=== PATIENT | female | born 1960 | race Caucasian/White ===

== ENCOUNTER → 2016-12-29 | Outpatient (CLI) | payer BC ==
[~2016-12-29] MED LIST: AC325T PO; AC500T PO; ASP325TEC PO; ASP81TEC PO; ASPI1TAB PO; ATOR40TA; ATOR80TA PO; ATOR80TA76 PO; ATR20T PO; CHOL200025 PO; CHOL5000 PO; CIPR500S2 PO; CPAP; CYCL10TA9 PO; D3 PO; DICL75TA2 PO; FRSM40T PO; FURO20TA4 PO; FURO40TA4 PO; GABA-486 PO; HYDR-3454 PO; HYDR-3816 PO; HYDR-757 PO; HYDR1TAB PO; IBUP-15 PO; IBUP-1780 PO; IBUP-30 PO; ISM30TCR PO; LVF500T PO; METO-272 PO; METO-370 PO; METO50TA7 PO; MTP100TCR; MTP100TCR PO; NF-MET200T PO; OMEG-12 PO; OMG1KC PO; OXYB10TA6 PO; OXYB5TAB9 PO; PANT20TA2 PO; PANT40SU PO; PANT40TA3 PO; PNT40TEC PO; PRAS10TA6 PO; RABE20TA PO; SERT100T8 PO; SLEEPING MED; SRTR100T; SRTR100T PO; TOPI50TA2 PO; TPR25T PO; TRAM-42 PO; TRIA1CAP4 PO; VITA1TAB17 PO; [UNRECOGNIZED DRUG - CODE] PO; [UNRECOGNIZED DRUG - OTHER] PO; [UNRECOGNIZED DRUG - REMARK]
== END ==
LOC: CARD 08:11
PROVIDERS: ATTEND Physician Assistant
DX: I25.10 Atherosclerotic heart disease of native coronary artery without angina pectoris (principal); I10 Essential (primary) hypertension; E78.2 Mixed hyperlipidemia; R42 Dizziness and giddiness
CPT/HCPCS: 93306

== ENCOUNTER → 2017-01-22 | Outpatient (CLI) | payer BC ==
[~2017-01-22] MED LIST changes: +CATHETER FLUSH 10 ML SYR IV PRN; -GABA-486 PO; -METO-370 PO; -NF-MET200T PO; +REGADENOSON 0.4 MG/5 ML SYR (LEXISCAN) IV ONE; -TRIA1CAP4 PO
[2017-01-22 09:08] VITALS: BP 141/78
[2017-01-22 09:18] VITALS: BP 131/71
[2017-01-22 09:20] VITALS: BP 128/70
--- NOTE | 2017-01-22 13:00 | STRESS TEST ---
DATE OF SERVICE: 01/22/2017 LEXISCAN MYOVIEW STRESS TEST REPORT: REFERRING PHYSICIAN: . Baseline heart rate is 64. Baseline blood pressure is 141/78. Baseline EKG is atrial paced rhythm with no ischemic changes. In summary, the patient was injected with 10.92 mCi of technetium-99 Myoview and the resting images were obtained. Then, the patient received 0.4 mg of Lexiscan followed by 30.6 mCi of technetium-99 Myoview. Throughout the test, there were no EKG changes. The resting and stressed images were reviewed and compared in the short axis, horizontal long axis, and vertical long axis views. Review of the images showed breast attenuation with fixed defect at the anterior apical segment with no significant ischemia. SSS is 3, SDS 1, no gated images were done on this study. CONCLUSION: 1. The patient tolerated Lexiscan well. 2. Breast attenuation with typical female pattern. No significant ischemia or infarction on SPECT images. 3. No gated images were done on this study. Job ID: [id number] DocumentID: [id number] Dictated Date: 01/22/2017 11:34:20 Head Char Filter Tank Tender Date: 01/22/2017 12:35:35 Dictated By: DRU LINDO MD
== END ==
LOC: CARD 07:29
PROVIDERS: ATTEND Physician Assistant
DX: I25.10 Atherosclerotic heart disease of native coronary artery without angina pectoris (principal); R42 Dizziness and giddiness; I10 Essential (primary) hypertension; E78.2 Mixed hyperlipidemia

== ENCOUNTER → 2017-02-26 | Outpatient (CLI) | payer BC ==
[~2017-02-26] MED LIST changes: -CATHETER FLUSH 10 ML SYR IV PRN; -REGADENOSON 0.4 MG/5 ML SYR (LEXISCAN) IV ONE
[2017-02-26 11:02] LABS: ALANINE AMINOTRANSFERASE 23 U/L (0-55); ALBUMIN 3.9 GM/DL (3.2-4.5); ANION GAP 8 MMOL/L (5-14); ASPARTATE AMINO TRANSFERASE 18 U/L (5-34); BILIRUBIN,TOTAL 0.6 MG/DL (0.1-1.0); BLOOD UREA NITROGEN 15 MG/DL (7-18); BUN/CREATININE RATIO 22; CALCIUM 9.2 MG/DL (8.5-10.1); CARBON DIOXIDE 27 MMOL/L (21-32); CHLORIDE 105 MMOL/L (98-107); CHOLESTEROL 180 MG/DL (< 200); CREATININE SERUM 0.68 MG/DL (0.60-1.30); DIRECT LDL 108 MG/DL (1-129); GFR ESTIMATED > 60; GLUCOSE 122 MG/DL (70-105); POTASSIUM 4.3 MMOL/L (3.6-5.0); SODIUM 140 MMOL/L (135-145); TOTAL PROTEIN 6.8 GM/DL (6.4-8.2); TRIGLYCERIDES 134 MG/DL (<150); VLDL CHOLESTEROL 27 MG/DL (5-40)
[2017-02-26 11:22] LABS: THYROID STIMULATING HORMONE 1.27 UIU/ML (0.35-4.94)
== END ==
LOC: LAB 10:28
PROVIDERS: ATTEND Internal Medicine Cardiovascular Disease
DX: I25.10 Atherosclerotic heart disease of native coronary artery without angina pectoris (principal); I10 Essential (primary) hypertension; I49.5 Sick sinus syndrome; R00.2 Palpitations; R06.02 Shortness of breath
CPT/HCPCS: 36415; 80053; 80061; 84443

== ENCOUNTER 2017-04-04 06:42 | Day surgery (SDC) | payer BC ==
[2017-04-04] VITALS (9 sets, daily range): BP systolic 136–159; BP diastolic 74–98
[~2017-04-04] VITALS: Ht 167.6 cm; Wt 133.8 kg
[~2017-04-04 06:42] MED LIST changes: +METO-370 PO
[2017-04-04] MEDS ORDERED: HEParin (CATH LAB) 2,000 ML IV ONE (06:44)
[2017-04-04] MEDS ORDERED: NS IV 1000 ML 1,000 ML ONE (06:44)
[2017-04-04] MEDS ORDERED: NS IV 1000 ML 1,000 ML IV SCH ×2 (06:56→10:27)
[2017-04-04 07:37] LABS: BILIRUBIN,URINE NEGATIVE (NEGATIVE); KETONES,URINE NEGATIVE (NEGATIVE); LEUKOCYTE ESTERASE ,URINE NEGATIVE (NEGATIVE); NITRITE,URINE NEGATIVE (NEGATIVE); PH,URINE 6.5 (5-9); PROTEIN,URINE NEGATIVE (NEGATIVE); UROBILINOGEN,URINE NORMAL (NORMAL)
[2017-04-04 07:37] LABS: MEAN PLATELET VOLUME 8.5 FL (7.4-10.4); RED BLOOD COUNT 4.1 10^6/uL (4.35-5.85); RED CELL DISTRIBUTION WIDTH 14.1 % (10.0-14.5); WHITE BLOOD COUNT 5.5 10^3/uL (4.3-11.0)
--- NOTE | 2017-04-04 07:40 | Diagnostic Imaging Report ---
INDICATION: Chest pain. Pre-cath evaluation COMPARISON: 07/02/2013 FINDINGS: Upright portable view of the chest is obtained. Heart size is enlarged but unchanged. There is no central venous congestion. Pacer device in the left chest is stable. There is no pneumothorax, mediastinal widening or pleural fluid demonstrated. The lungs are clear. IMPRESSION: Stable cardiomegaly. No acute cardiopulmonary abnormalities demonstrated. Dictated by: Dictated on workstation # [id number]
[2017-04-04] MEDS ORDERED: FURO20TA4 PO (07:47)
[2017-04-04] MEDS ORDERED: GABA-486 PO (07:47)
[2017-04-04] MEDS ORDERED: NF-MET200T PO (07:47)
[2017-04-04] MEDS ORDERED: DICL75TA2 PO (07:47)
[2017-04-04] MEDS ORDERED: TRIA1CAP4 PO (07:47)
[2017-04-04] MEDS ORDERED: OXYB5TAB9 PO (07:47)
[2017-04-04 07:49] LABS: PROTHROMBIN TIME PATIENT 13.2 SEC (12.2-14.7)
[2017-04-04 07:56] LABS: ALANINE AMINOTRANSFERASE 23 U/L (0-55); ANION GAP 11 MMOL/L (5-14); ASPARTATE AMINO TRANSFERASE 17 U/L (5-34); BILIRUBIN,TOTAL 0.6 MG/DL (0.1-1.0); BLOOD UREA NITROGEN 22 MG/DL (7-18); BUN/CREATININE RATIO 29; CALCIUM 9.2 MG/DL (8.5-10.1); CARBON DIOXIDE 28 MMOL/L (21-32); CHLORIDE 102 MMOL/L (98-107); CREATININE SERUM 0.77 MG/DL (0.60-1.30); GFR ESTIMATED > 60; GLUCOSE 153 MG/DL (70-105); POTASSIUM 4.1 MMOL/L (3.6-5.0); SODIUM 141 MMOL/L (135-145); TOTAL PROTEIN 6.9 GM/DL (6.4-8.2)
[2017-04-04] MEDS ORDERED: MIDAZOLAM 2 MG/2 ML (VERSED) VIAL ONE ×2 (09:14→10:00)
[2017-04-04] MEDS ORDERED: VERAPAMIL 5 MG/2 ML (CALAN) VIAL IV ONE (09:14)
[2017-04-04] MEDS ORDERED: HEParin 1000 UNIT/ML (10ML VIAL) FOR BOLUS ONE (09:14)
[2017-04-04] MEDS ORDERED: NITROGLYCERIN DRIP 25 MG/D5W 250 ML IV ONE (09:14)
[2017-04-04] MEDS ORDERED: fentaNYL INJECTION 100 MCG/2 ML AMP ONE (09:14)
--- NOTE | 2017-04-04 09:32 | Cardiac Procedure Note-CS/ASA ---
Pre-Procedure Note Pre-Op Procedure Note H&P Reviewed The H&P was reviewed, patient examined and no changes noted. Date H&P Reviewed: Apr 04, 2017 Time H&P Reviewed: 09:32 Conscious Sedation Pre-Proced Time Reviewed: 09:32 ASA Class: 3 Airway Mallampati Classification: ([place] appropriate class) I. II. III, IV Lungs Heart ASA score ASA 1: a normal healthy patient ASA 2: a patient with a mild systemic disease (mid diabetes, controlled hypertension, obesity x ASA 3: a patient with a severe systemic disease that limits activity (angina , COPD, prior Myocardial infarction) ASA 4: a patient with an incapacitating disease that is a constant threat to life (CHF, renal failure) ASA 5: a moribund patient not expected to survive 24 hrs. (ruptured aneurysm) ASA 6: a declared brain patient whose organs are being harvested. For emergent operations, add the letter E after the classification Grade 3 Sedation Plan: Analgesia, Amnesia, Plan communicated to team members, Discussed options with patient/fam, Discussed risks with patient/fam Note The patient is an appropriate candidate to undergo the planned procedure, sedation, and anesthesia. The patient immediately re-assessed prior to indication. DRU LINDO MD Apr 04, 2017 09:32
[2017-04-04] MEDS ORDERED: PROMETHAZINE INJ 25 MG/ML (PHENERGAN) AMP ONE (09:56)
[2017-04-04] MEDS ORDERED: PATIENT MAY USE OWN MEDS, ALL PO SCH (10:30)
--- NOTE | 2017-04-04 10:31 | Discharge Inst-Post CATH ---
Discharge Inst-CATH Post Cardiac Cath D/C Inst Follow Up/Plan Appointment with Dr. Agudelo's office in 2-4 weeks CARDIAC CATH DISCHARGE INSTRUCTIONS *Hold Metformin for 48 hours post heart cath. ACTIVITY * Go Home directly and rest. * Limit activity of the leg (or wrist if it was used) for 7 days including aerobics, swimming, jogging, bicycling, etc. * Restrict stair-climbing for 7 days if possible, if not, climb up with your non -cath leg, then bring together on the same step. * Avoid lifting, pushing, pulling or excessive movement of the affected extremity for 7 days. * Customary sexual activity may be resumed after 2 days-use caution not to use a position that strains or causes pain to the affected extremity. * No driving for 24 hours. * NO SMOKING. * Avoid straining for bowel movements for 7 days. * Gentle walking on level ground is allowed. * Returning to work will depend on the type of procedure and the results. Your doctor will discuss this with you. CALL YOUR DOCTOR FOR ANY OF THE FOLLOWING: *If bleeding from the puncture site occurs- Apply gentle pressure to site with clean cloth and call your doctor or EMS. * If a knot or lump forms under the skin, increases in size, or causes pain. * If bruising appears to be worsening or moving further down your leg instead of disappearing. * Temperature above 101 F. CARE OF YOUR GROIN INCISION; * Bruising or purple discoloration of the skin near the puncture site is common. * You may shower only, no bathtub bathing for 5 days. Be careful to avoid slipping as your leg may feel stiff. * If a closure device was used on your femoral artery, please see the attached guide regarding care of the device and your leg. * REMOVE the dressing from your groin the next day after your procedure in the shower. CARE OF YOUR WRIST INCISION; * Bruising or purple discoloration of the skin near the puncture site is common. * You may shower. * DO NOT submerge wrist. * Remove dressing in 24 hours. DRU AGUDELO MD Apr 04, 2017 10:31
--- NOTE | 2017-04-04 10:36 | Cardiac Cath Report ---
Cardiac Cath Report Physician (s)/Polarity Tester (s) Physician DRU LINDO MD Pre-Procedure Diagnosis Pre-Procedure Diagnosis: coronary artery disease Post-Procedure Note Procedure Start Date: Apr 04, 2017 Procedure Start Time: 09:40 Name of Procedure: left heart catheter 98099 Aortic arch angiogram 98120 Findings/Procedure Note PROCEDURE NOTE: After explaining the procedure to the patient, all pros and cons were explained, all questions were answered. The patient signed the consent and then she was placed on the cardiac catheterization laboratory. The patient was placed on the cardiac catheterization laboratory. Wrist was prepped in a sterile fashion, 6 Togolese sheath was placed in the right radial artery, I was unable to advance the wire beyond the innominate artery that was very tortuous. After multiple attempts patient had spasm in the radial artery, after sedating the patient I was able to remove the catheter I tried with Adriana right without success. Groin was prepped SL fashion local anesthesia was used. Sheath placed in the right femoral artery Adriana right and left catheter were used to access the coronary system. Pigtail was used to access the left ventricular cavity. Left ventriculogram was not done, pressure was measured Aortic arch angiogram was done At the end of the procedure the sheath was removed. Closure device was used FINDINGS: Hemodynamics LV 105/10, end-diastolic pressure of 10 Aorta 105/59 mean of 75 ANATOMY: Left Main is free of obstructive disease Left Anterior Descending is mildly tortuous with no significant obstructive disease, mild disease distally Left Circumflex has mild disease nonobstructive disease Right Coronory Artery is free of obstructive disease LV Gram was not done, pressure was measured Aorta evaluation was done with aortic arch angiogram which showed normal aortic arch, no dissection or aneurysm, tortuous innominate artery, origin of the subclavian artery appeared normal. CONCLUSION: 1. Patent stent in the LAD with mild coronary artery disease, nonobstructive disease 2. Normal left ventricular pressure 3. Normal aortic arch with tortuous innominate artery DISCUSSION AND RECOMMENDATION: Medical therapy is recommended no intervention is warranted Anesthesia Type: Conscious Sedation Estimated blood loss (mL): 15 ml Contrast Amount: 80 ml Total Radiation Dose: 596 mGy Post-Procedure Diagnosis Post-operative diagnosis: Coronary artery disease Hypertension Hyperlipidemia Chest pain nonspecific etiology DRU LINDO MD Apr 04, 2017 10:36
== END 2017-04-04 15:02 | disposition home or self-care (01) ==
LOC: CATH 06:42
PROVIDERS: ATTEND Internal Medicine Cardiovascular Disease
DX: I25.10 Atherosclerotic heart disease of native coronary artery without angina pectoris (principal); I10 Essential (primary) hypertension; E78.5 Hyperlipidemia, unspecified; R07.9 Chest pain, unspecified; I49.5 Sick sinus syndrome; Z95.0 Presence of cardiac pacemaker; Z88.0 Allergy status to penicillin; Z79.899 Other long term (current) drug therapy; Z79.82 Long term (current) use of aspirin; J44.9 Chronic obstructive pulmonary disease, unspecified; G47.33 Obstructive sleep apnea (adult) (pediatric); I65.23 Occlusion and stenosis of bilateral carotid arteries; E66.9 Obesity, unspecified; Z68.42 Body mass index [BMI] 45.0-49.9, adult
CPT/HCPCS: 36215; 36221; 36415; 71010; 80053; 81000; 85027; 85610; 85730; 87081; 93458

== ENCOUNTER 2017-08-02 11:13 | Emergency (ER) | payer BC ==
[~2017-08-02] VITALS: Ht 167.6 cm; Wt 136.1 kg
[~2017-08-02 11:13] MED LIST changes: +GABA-486 PO; +NF-MET200T PO; +TRIA1CAP4 PO
[2017-08-02] MEDS ORDERED: ONDANSETRON 4 MG/2 ML (SDV) Z0FRAN ONE (11:32)
--- NOTE | 2017-08-02 11:33 | ED GU-Female ---
General Chief Complaint: Abdominal/GI Problems Stated Complaint: POSS KIDNEY STONE Source: patient Exam Limitations: no limitations History of Present Illness Date Seen by Provider: Aug 02, 2017 Time Seen by Provider: 11:33 Initial Comments To ER with reports of possible kidney stone. Patient developed sudden onset right flank pain about 30 minutes ago. She has a history kidney stones and this feels similar. She is nauseated. Timing/Duration: just prior to arrival Severity/Quality: severe Location: right flank Radiation: none Activities at Onset: none Prior Genitourinary Problems: none Associated Symptoms: nausea/vomiting Allergies and Home Medications Allergies Coded Allergies: NKANo Known Allergies (Unverified Allergy, Mild, 09/04/08) Penicillins (Unverified Allergy, Mild, 09/30/08) Home Medications Aspirin 81 Mg Tabec, 81 MG PO DAILY, (Reported) Atorvastatin Calcium 80 Mg Tablet, 80 MG PO HS, (Reported) Diclofenac Sodium 75 Mg Tablet.dr, 75 MG PO BID, (Reported) Furosemide 20 Mg Tablet, 20 MG PO DAILY PRN for EDEMA, (Reported) Gabapentin 100 Mg Capsule, 100 MG PO HS, (Reported) Hydrocodone/Acetaminophen 1 Each Tablet, 1 EACH PO Q4H PRN for PAIN-MODERATE TO SEVERE Prescribed by: TRISTAN ALCALA on 08/02/17 1226 Metoprolol Succinate 200 Mg Tab, 200 MG PO DAILY, (Reported) Ondansetron 8 Mg Tab.rapdis, 8 MG PO Q6H Prescribed by: TRISTAN ALCALA on 08/02/17 1226 Oxybutynin Chloride 5 Mg Tablet, 10 MG PO DAILY, (Reported) Pantoprazole Sodium 40 Mg Tablet.dr, 40 MG PO HS, (Reported) Sertraline HCl 100 Mg Tablet, 100 MG PO DAILY, (Reported) Sulfamethoxazole/Trimethoprim 1 Each Tablet, 1 EACH PO BID Prescribed by: TRISTAN ALCALA on 08/02/17 1226 Tamsulosin HCl 0.4 Mg Cap, 0.4 MG PO DAILY Prescribed by: TRISTAN ALCALA on 08/02/17 1226 Triamterene/Hydrochlorothiazid 1 Each Capsule, 1 EACH PO DAILY, (Reported) Patient Home Medication List Home Medication List Reviewed: Yes Constitutional: see HPI EENTM: see HPI Respiratory: no symptoms reported Cardiovascular: no symptoms reported Genitourinary: see HPI, flank pain Musculoskeletal: no symptoms reported Skin: no symptoms reported Psychiatric/Neurological: No Symptoms Reported Past Rjgqmqz-Ifbqyy-Ubggew Hx Patient Social History Recent Foreign Travel: No Contact w/Someone Who Travel: No Immunizations Up To Date Tetanus Booster (TDap): Less than 5yrs Date of Pneumonia Vaccine: Jun 07, 2010 Date of Influenza Vaccine: Feb 21, 2017 Surgeries Surgeries: Cardiac, Coronary Stent, Pacemaker Respiratory Respiratory Disorders: Chronic Bronchitis, Sleep Apnea Currently Using CPAP: Yes (AT HS) Cardiovascular Cardiac Disorders: Coronary Artery Disease, High Cholesterol, Hypertension Neurological Neurological Disorders: TIA Reproductive System 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) Sexually Transmitted Disease: No HIV/AIDS: No Female Reproductive Disorders: Denies 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 CHEF History: Menopausal Genitourinary Genitourinary Disorders: Kidney Stones Gastrointestinal Gastrointestinal Disorders: Hiatal Hernia Musculoskeletal Musculoskeletal Disorders: Arthritis, Fractures Endocrine Endocrine Disorders: Diabetes, Non-Insulin dep Psychosocial Behavioral Health Disorders: Depression Family Medical History Significant Family History: Heart Disease, Cancer, Diabetes, Hypertension Physical Exam Vital Signs Vital Signs - First Documented 08/02/17 11:18 Temp 98.0 Pulse 64 Resp 18 B/P (MAP) 159/64 (95) Capillary Refill : General Appearance: WD/WN, mild distress (related to pain), obese HEENT: PERRL/EOMI, normal ENT inspection Neck: non-tender, full range of motion Cardiovascular: regular rate, rhythm, no murmur Respiratory: normal breath sounds, no respiratory distress, no accessory muscle use Gastrointestinal: normal bowel sounds, non tender, soft Extremities: normal range of motion, non-tender, normal inspection Neurologic/Psychiatric: alert, normal mood/affect, oriented x 3 Skin: normal color, warm/dry Progress/Results/Core Measures Suspected Sepsis SIRS Temperature: Pulse: Respiratory Rate: Laboratory Tests 08/02/17 11:30: White Blood Count 5.7 Blood Pressure / Mean: Laboratory Tests 08/02/17 11:30: Creatinine 0.76, Platelet Count 277, Total Bilirubin 0.6 Results/Orders Lab Results Laboratory Tests Test 08/02/17 11:30 08/02/17 12:50 Range/Units White Blood Count 5.7 4.3-11.0 10^3/uL Red Blood Count 4.29 L 4.35-5.85 10^6/uL Hemoglobin 12.8 11.5-16.0 G/DL Hematocrit 38 35-52 % Mean Corpuscular Volume 88 80-99 FL Mean Corpuscular Hemoglobin 30 25-34 PG Mean Corpuscular Hemoglobin Concent 34 32-36 G/DL Red Cell Distribution Width 13.8 10.0-14.5 % Platelet Count 277 130-400 10^3/uL Mean Platelet Volume 8.6 7.4-10.4 FL Neutrophils (%) (Auto) 53 42-75 % Lymphocytes (%) (Auto) 35 12-44 % Monocytes (%) (Auto) 7 0-12 % Eosinophils (%) (Auto) 5 0-10 % Basophils (%) (Auto) 1 0-10 % Neutrophils # (Auto) 3.0 1.8-7.8 X 10^3 Lymphocytes # (Auto) 2.0 1.0-4.0 X 10^3 Monocytes # (Auto) 0.4 0.0-1.0 X 10^3 Eosinophils # (Auto) 0.3 0.0-0.3 10^3/uL Basophils # (Auto) 0.0 0.0-0.1 10^3/uL Sodium Level 138 135-145 MMOL/L Potassium Level 3.4 L 3.6-5.0 MMOL/L Chloride Level 100 98-107 MMOL/L Carbon Dioxide Level 27 21-32 MMOL/L Anion Gap 11 5-14 MMOL/L Blood Urea Nitrogen 18 7-18 MG/DL Creatinine 0.76 0.60-1.30 MG/DL Estimat Glomerular Filtration Rate > 60 BUN/Creatinine Ratio 24 Glucose Level 219 H 70-105 MG/DL Calcium Level 9.3 8.5-10.1 MG/DL Total Bilirubin 0.6 0.1-1.0 MG/DL Aspartate Amino Transf (AST/SGOT) 18 5-34 U/L Alanine Aminotransferase (ALT/SGPT) 25 0-55 U/L Alkaline Phosphatase 59 40-136 U/L Total Protein 6.9 6.4-8.2 GM/DL Albumin 4.2 3.2-4.5 GM/DL Urine Color YELLOW Urine Clarity CLEAR Urine pH 5 5-9 Urine Specific [place] 1.010 L 1.016-1.022 Urine Protein NEGATIVE NEGATIVE Urine Glucose (UA) NEGATIVE NEGATIVE Urine Ketones NEGATIVE NEGATIVE Urine Nitrite NEGATIVE NEGATIVE Urine Bilirubin NEGATIVE NEGATIVE Urine Urobilinogen NORMAL NORMAL MG/DL Urine Leukocyte Esterase NEGATIVE NEGATIVE Urine RBC (Auto) NEGATIVE NEGATIVE Urine RBC NONE /HPF Urine WBC NONE /HPF Urine Squamous Epithelial Cells RARE /HPF Urine Crystals NONE /LPF Urine Bacteria NEGATIVE /HPF Urine Casts NONE /LPF Urine Mucus NEGATIVE /LPF Urine Culture Indicated NO My Orders Orders - TRISTAN ALCALA APRN Ketorolac Injection (Toradol Injection) (08/02/17 11:45) Ns Iv 1000 Ml (Sodium Chloride 0.9%) (08/02/17 11:45) Cbc With Automated Diff (08/02/17 11:31) Comprehensive Metabolic Panel (08/02/17 11:31) Ua Culture If Indicated (08/02/17 11:31) Abdomen/Kub 1view (08/02/17 11:31) Ct Abd/Pelvis Wo(Kidney Stone) (08/02/17 11:31) Ondansetron Injection (Zofran Injectio (08/02/17 11:45) Ondansetron Injection (Zofran Injectio (08/02/17 11:32) Fentanyl Injection (Sublimaze Injection (08/02/17 12:15) Promethazine Injection (Phenergan Injec (08/02/17 12:15) Hydromorphone Injection (Dilaudid Inject (08/02/17 12:45) Medications Given in ED Current Medications Medications Dose Ordered Sig/Rodríguez Route Start Time Stop Time Status Last Admin Dose Admin Fentanyl Citrate 50 mcg ONCE ONCE IVP 08/02/17 12:15 08/02/17 12:16 DC 08/02/17 12:18 50 MCG Hydromorphone HCl 0.5 mg ONCE ONCE IVP 08/02/17 12:45 08/02/17 12:46 DC 08/02/17 13:00 0.5 MG Ketorolac Tromethamine 30 mg ONCE ONCE IVP 08/02/17 11:45 08/02/17 11:46 DC 08/02/17 11:38 30 MG Ondansetron HCl 4 mg STK-MED ONCE .ROUTE 08/02/17 11:32 08/02/17 11:36 DC 08/02/17 11:38 8 MG Promethazine HCl 12.5 mg ONCE ONCE IVP 08/02/17 12:15 08/02/17 12:16 DC 08/02/17 12:17 12.5 MG Vital Signs/I&O Vital Sign - Last 12Hours 08/02/17 11:18 Temp 98.0 Pulse 64 Resp 18 B/P (MAP) 159/64 (95) Capillary Refill : Diagnostic Imaging Diagonstic Imaging: CT Comments NAME: ERNESTINA RAINES [facility] REC#: [id number] PT STATUS: REG ER : 1960 PHYSICIAN: TRISTAN ALCALA LAMPS TESTER AND INSPECTOR ADMIT DATE: 08/02/17/ER Draft Date of Exam:08/02/17 CT ABD/PELVIS WO(KIDNEY STONE) PROCEDURE: CT urinary tract, rule out kidney stone. TECHNIQUE: Multiple contiguous axial images were obtained through the abdomen and pelvis without the use of intravenous contrast. INDICATION: Right-sided pain. COMPARISON: 01/17/2016. FINDINGS: There is mild atelectasis in the lung bases. There is mild hepatic steatosis. There is an ill-defined 2.6 cm low density in the right hepatic lobe adjacent to the gallbladder fossa which is new from the prior study. This may represent a focal area of more prominent steatosis, although an underlying mass is not excluded. Ultrasound or contrast-enhanced CT of the abdomen is suggested. The gallbladder appears unremarkable. There is no biliary dilatation. The pancreas, spleen, and adrenal glands appear unremarkable. The left kidney and ureter appear unremarkable. There is a new 3 mm stone in the distal right ureter just proximal to the ureterovesical junction. There is mild right hydroureter and moderate right hydronephrosis. Several additional calcifications are seen in the right kidney measuring up to 8 mm in size. The appendix appears normal. There is diverticulosis without evidence of diverticulitis. Lobular changes of the uterus are likely fibroids. There is no free fluid, free air, or adenopathy. There is a small periumbilical abdominal wall hernia containing fat. This measures approximately 3 cm. There is no free fluid, free air, or adenopathy. The abdominal aorta appears normal in caliber. There is mild atherosclerosis. There are degenerative changes in the spine. IMPRESSION: 1. There is a 3 mm stone in the distal right ureter just proximal to the ureterovesical junction with ougc-mu-whztoaok obstructive changes. Additional right nephrolithiasis is noted. 2. Diffuse hepatic steatosis. There is a new focal area of decreased density in the right lobe about the gallbladder fossa which may represent an area of more focal fatty change, although an underlying new mass is not excluded. Hepatic ultrasound or contrast-enhanced abdomen CT is suggested for further evaluation. 3. Diverticulosis without evidence of diverticulitis. 4. Small fat-containing periumbilical ventral abdominal wall hernia. Dictated on workstation # [id number] Dict: 08/02/17 1204 Trans: 08/02/17 1216 [id number] Interpreted by: ARABELLA AMARO DO Electronically signed by: NAME: ERNESTINA RAINES [facility] REC#: [id number] PT STATUS: REG ER : 1960 PHYSICIAN: TRISTAN ALCALA APRN ADMIT DATE: 08/02/17/ER Draft Date of Exam:08/02/17 ABDOMEN/KUB 1VIEW INDICATION: Right-sided abdominal pain. The patient has history of kidney stones. TIME OF EXAM: 12:22 PM FINDINGS: Calcific densities overlie the right renal shadow consistent with renal calculi. No definite left-sided renal calculi are seen. No definite calculi within the course of the ureters is identified. Bowel gas pattern is unremarkable. IMPRESSION: Findings suggestive of right renal calculi. Dictated on workstation # [id number] Dict: 08/02/17 1241 Trans: 08/02/17 1246 [id number] Interpreted by: JENIFER CRESPO MD Electronically signed by: Departure Communication (Admissions) Progress Notes 1229- pain is still 8 out of 10 after 30 of Toradol and 50 of fentanyl. Nausea is gone. Discussed with Dr. Tyler. He will see the patient in follow-up on Sunday as long as we can achieve pain control. 1312- reports pain still intense but as soon as we leave the room oxygen saturation dropped to 84% on room air after toradol Dilaudid Phenergan fentanyl. No writhing, no hypertension. We will wait until patient can maintain oxygen saturation without supplemental oxygen and discharge home Communication (PCP) I made an appointment with Dr. Ho's office on Sunday 1:30 PM. Impression Impression: Primary Impression: Right ureteral calculus Disposition: HOME, SELF-CARE Condition: Improved Departure-Patient Inst. Decision time for Depature: 12:30 Referrals: LUIZ LEGER MD (PCP) Primary Care Physician KEN DALY (Family) Primary Care Physician NOHEMY TYLER MD Patient Instructions: Kidney Stones in Adults Add. Discharge Instructions: 1. Follow-up with Dr. Tyler on Sunday for/2 at 1:30 PM. At 12:30 PM you should come here to the hospital for a repeat x-ray just before your visit. Dr. Tyler' s office will fax over the order for the repeat x-ray 2. Follow-up with your regular doctor to further evaluate the area on the liver near the gallbladder which may represent an area of fatty liver disease. This should be further evaluated in the next few weeks with a CT scan of the abdomen with contrast or a liver ultrasound. All discharge instructions reviewed with patient and/or family. Voiced understanding. Scripts Sulfamethoxazole/Trimethoprim (Bactrim Ds Tablet) 1 Each Tablet 1 EACH PO BID, #10 TAB Prov: TRISTAN ALCALA APRN 08/02/17 Ondansetron (Zofran Odt) 8 Mg Tab.rapdis 8 MG PO Q6H, #10 TAB Prov: TRISTAN ALCALA APRN 08/02/17 Hydrocodone/Acetaminophen ([place] 5-325 Tablet) 1 Each Tablet 1 EACH PO Q4H Y for PAIN-MODERATE TO SEVERE, #30 TAB Prov: TRISTAN ALCALA APRN 08/02/17 Tamsulosin HCl (Flomax) 0.4 Mg Cap 0.4 MG PO DAILY, #14 CAP Prov: TRISTAN ALCALA APRN 08/02/17 Work/School Note: Work Release Form Date Seen in the Emergency Department: Aug 02, 2017 Return to Work: Aug 04, 2017 Copy Copies To 1: GINA COLIN DO; NOHEMY TYLER MD, PETER J APRN Aug 02, 2017 11:33
[2017-08-02 11:38] LABS: BASOPHILS % (AUTO) 1 % (0-10); EOSINOPHILS # (AUTO) 0.3 10^3/uL (0.0-0.3); EOSINOPHILS % (AUTO) 5 % (0-10); HEMATOCRIT 38 % (35-52); HEMOGLOBIN 12.8 G/DL (11.5-16.0); LYMPHOCYTES % (AUTO) 35 % (12-44); MEAN CORPUSCULAR HEMOGLOBIN 30 PG (25-34); MEAN CORPUSCULAR HGB CONC 34 G/DL (32-36); MEAN CORPUSCULAR VOLUME 88 FL (80-99); MEAN PLATELET VOLUME 8.6 FL (7.4-10.4); MONOCYTES # (AUTO) 0.4 X 10^3 (0.0-1.0); MONOCYTES % (AUTO) 7 % (0-12); NEUTROPHILS % (AUTO) 53 % (42-75); PLATELET COUNT 277 10^3/uL (130-400); RED BLOOD COUNT 4.29 10^6/uL (4.35-5.85); RED CELL DISTRIBUTION WIDTH 13.8 % (10.0-14.5); WHITE BLOOD COUNT 5.7 10^3/uL (4.3-11.0)
[2017-08-02] MEDS ORDERED: KETOROLAC 30 MG/ML VIAL IVP ONE (11:45)
[2017-08-02] MEDS ORDERED: NS IV 1000 ML 1,000 ML IV SCH (11:45)
[2017-08-02] MEDS ORDERED: ONDANSETRON 4 MG/2 ML (SDV) Z0FRAN IVP ONE (11:45)
[2017-08-02 11:56] LABS: ALANINE AMINOTRANSFERASE 25 U/L (0-55); ALBUMIN 4.2 GM/DL (3.2-4.5); ALKALINE PHOSPHATASE 59 U/L (40-136); BILIRUBIN,TOTAL 0.6 MG/DL (0.1-1.0); BUN/CREATININE RATIO 24; CALCIUM 9.3 MG/DL (8.5-10.1); CARBON DIOXIDE 27 MMOL/L (21-32); CHLORIDE 100 MMOL/L (98-107); CREATININE SERUM 0.76 MG/DL (0.60-1.30); GFR ESTIMATED > 60; GLUCOSE 219 MG/DL (70-105); POTASSIUM 3.4 MMOL/L (3.6-5.0); SODIUM 138 MMOL/L (135-145); TOTAL PROTEIN 6.9 GM/DL (6.4-8.2)
[2017-08-02] MEDS ORDERED: PROMETHAZINE INJ 25 MG/ML (PHENERGAN) AMP IVP ONE (12:15)
[2017-08-02] MEDS ORDERED: fentaNYL INJECTION 100 MCG/2 ML AMP IVP ONE (12:15)
--- NOTE | 2017-08-02 12:17 | Diagnostic Imaging Report ---
PROCEDURE: CT urinary tract, rule out kidney stone. TECHNIQUE: Multiple contiguous axial images were obtained through the abdomen and pelvis without the use of intravenous contrast. INDICATION: Right-sided pain. COMPARISON: 01/17/2016. FINDINGS: There is mild atelectasis in the lung bases. There is mild hepatic steatosis. There is an ill-defined 2.6 cm low density in the right hepatic lobe adjacent to the gallbladder fossa which is new from the prior study. This may represent a focal area of more prominent steatosis, although an underlying mass is not excluded. Ultrasound or contrast-enhanced CT of the abdomen is suggested. The gallbladder appears unremarkable. There is no biliary dilatation. The pancreas, spleen, and adrenal glands appear unremarkable. The left kidney and ureter appear unremarkable. There is a new 3 mm stone in the distal right ureter just proximal to the ureterovesical junction. There is mild right hydroureter and moderate right hydronephrosis. Several additional calcifications are seen in the right kidney measuring up to 8 mm in size. The appendix appears normal. There is diverticulosis without evidence of diverticulitis. Lobular changes of the uterus are likely fibroids. There is no free fluid, free air, or adenopathy. There is a small periumbilical abdominal wall hernia containing fat. This measures approximately 3 cm. There is no free fluid, free air, or adenopathy. The abdominal aorta appears normal in caliber. There is mild atherosclerosis. There are degenerative changes in the spine. IMPRESSION: 1. There is a 3 mm stone in the distal right ureter just proximal to the ureterovesical junction with zfsq-si-ykmrheoe obstructive changes. Additional right nephrolithiasis is noted. 2. Diffuse hepatic steatosis. There is a new focal area of decreased density in the right lobe about the gallbladder fossa which may represent an area of more focal fatty change, although an underlying new mass is not excluded. Hepatic ultrasound or contrast-enhanced abdomen CT is suggested for further evaluation. 3. Diverticulosis without evidence of diverticulitis. 4. Small fat-containing periumbilical ventral abdominal wall hernia. Dictated by: Dictated on workstation # [id number]
[2017-08-02] MEDS ORDERED: ONDA8TAB9 PO (12:26)
[2017-08-02] MEDS ORDERED: HYDR-757 PO (12:26)
[2017-08-02] MEDS ORDERED: SULF1TAB35 PO (12:26)
[2017-08-02] MEDS ORDERED: TAMS0.4C98 PO (12:26)
[2017-08-02] MEDS ORDERED: HYDROmorphone (DILAUDID) 2 MG/ML VIAL IVP ONE (12:45)
--- NOTE | 2017-08-02 12:46 | Diagnostic Imaging Report ---
INDICATION: Right-sided abdominal pain. The patient has history of kidney stones. TIME OF EXAM: 12:22 PM FINDINGS: Calcific densities overlie the right renal shadow consistent with renal calculi. No definite left-sided renal calculi are seen. No definite calculi within the course of the ureters is identified. Bowel gas pattern is unremarkable. IMPRESSION: Findings suggestive of right renal calculi. Dictated by: Dictated on workstation # [id number]
[2017-08-02 12:55] LABS: BILIRUBIN,URINE NEGATIVE (NEGATIVE); CLARITY,URINE CLEAR; COLOR,URINE YELLOW; GLUCOSE, URINE (UA) NEGATIVE (NEGATIVE); KETONES,URINE NEGATIVE (NEGATIVE); LEUKOCYTE ESTERASE ,URINE NEGATIVE (NEGATIVE); NITRITE,URINE NEGATIVE (NEGATIVE); PH,URINE 5 (5-9); PROTEIN,URINE NEGATIVE (NEGATIVE); UROBILINOGEN,URINE NORMAL (NORMAL)
[2017-08-02 13:21] LABS: BACTERIA,URINE NEGATIVE /HPF; SQUAMOUS EPITHELIAL CELL,UR RARE /HPF
[2017-08-02 14:18] VITALS: BP 184/84
== END 2017-08-02 14:18 | disposition home or self-care (01) ==
LOC: EDUNIT# 11:13 → ER 11:15
DX: N20.1 Calculus of ureter (principal); G47.30 Sleep apnea, unspecified; I25.10 Atherosclerotic heart disease of native coronary artery without angina pectoris; E11.9 Type 2 diabetes mellitus without complications; F32.9 Major depressive disorder, single episode, unspecified; E78.00 Pure hypercholesterolemia, unspecified; I10 Essential (primary) hypertension; Z82.49 Family history of ischemic heart disease and other diseases of the circulatory system; Z86.73 Personal history of transient ischemic attack (TIA), and cerebral infarction without residual deficits; Z87.442 Personal history of urinary calculi; Z87.19 Personal history of other diseases of the digestive system; Z88.1 Allergy status to other antibiotic agents; Z88.0 Allergy status to penicillin; Z79.82 Long term (current) use of aspirin; Z95.5 Presence of coronary angioplasty implant and graft; Z95.0 Presence of cardiac pacemaker
CPT/HCPCS: 36415; 74018; 74176; 80053; 81000; 85025; 96361; 96374; 96375

== ENCOUNTER → 2017-08-06 | Outpatient (CLI) | payer BC ==
[~2017-08-06] MED LIST changes: +ONDA8TAB9 PO; +SULF1TAB35 PO; +TAMS0.4C98 PO
--- NOTE | 2017-08-06 13:19 | Diagnostic Imaging Report ---
INDICATION: Obstructive uropathy. EXAMINATION: Two views were obtained. FINDINGS: The bowel gas pattern is nonspecific. The previously seen right renal calculi are not as well appreciated on today's exam. No definite abnormal calcifications seen along the expected course of either ureter. IMPRESSION: Nonspecific bowel gas pattern. Dictated by: Dictated on workstation # [id number]
== END ==
LOC: RAD 12:14
PROVIDERS: ATTEND Urology
DX: N20.1 Calculus of ureter (principal)
CPT/HCPCS: 74018

== ENCOUNTER 2017-08-09 05:36 | Outpatient (CLI) | payer BC ==
[~2017-08-09] VITALS: Ht 167.6 cm; Wt 136.1 kg
[2017-08-09] MEDS ORDERED: ASPI-999 PO (10:55)
== END 2017-08-09 11:14 ==
LOC: PREOP 05:36
PROVIDERS: ATTEND Urology
DX: Z01.818 Encounter for other preprocedural examination (principal); N20.0 Calculus of kidney

== ENCOUNTER 2017-08-14 06:59 | Day surgery (SDC) | payer BC ==
[~2017-08-14] VITALS: Ht 167.6 cm; Wt 136.1 kg
[~2017-08-14 06:59] MED LIST changes: +ASPI-999 PO
[2017-08-14 07:05] VITALS: BP 144/60
--- NOTE | 2017-08-14 07:10 | Progress Note-Pre Operative ---
Pre-Operative Progress Note H&P Reviewed The H&P was reviewed, patient examined and no changes noted. Date Seen by Provider: Aug 14, 2017 Time Seen by Provider: 07:33 Date H&P Reviewed: Aug 14, 2017 Time H&P Reviewed: 07:33 Pre-Operative Diagnosis: RT RENAL STONE NOHEMY TYLER MD Aug 14, 2017 7:10 am
--- OUTSIDE RECORDS SUMMARY | 2017-08-14 07:12 | XMS REPORT ---
Author Author NADIRPAYTONYANA Organization [facility] [place] Address [address] [place] [address] Care Team Providers Care Electrolysis Engineer Name Role Phone SCHMITZPAYTON BhaktaELE Unavailable PROBLEMS Type Condition ICD9-CM Code [id number] Code Onset Dates Condition Status SNOMED Code Problem Achilles bursitis or tendinitis 726.71 Active 506036501 Problem Asymptomatic postmenopausal status (age-related) (natural) V49.81 Active 46281323 Problem Asymptomatic varicose veins 454.9 Active 442799680 Problem Hypertension I10 Active 81588993 Problem Pain in joint, lower leg 719.46 Active 330735681 Problem Acute bronchitis 466.0 Active 28033036 Problem Abdominal pain, right lower quadrant 789.03 Active 802445880 Problem Unspecified ventral hernia without mention of obstruction or gangrene 553.20 Active 384891116 Problem Pneumonia, organism unspecified 486 Active 860090805 Assessment Right flank pain R10.9 Jan, Active 639943209 Problem Cough 786.2 Active 92446708 Assessment History of renal calculi Z87.442 Jan, Active 425351617 Problem Hernia of unspecified site of abdominal cavity without mention of obstruction or gangrene 553.9 Active 80745167 Problem Obesity, unspecified 278.00 Active 044679652 Problem Unspecified hypertrophic and atrophic condition of skin 701.9 Active 377596827 Problem Urinary tract infection, site not specified 599.0 Active 61118641 Problem Routine gynecological examination V72.31 Active 504083651957412 Problem Pain in joint, ankle and foot 719.47 Active 264899799 ALLERGIES Substance Reaction Event Type Date Status Penicillin G Potassium Unknown Drug Allergy Jan, Active SOCIAL HISTORY No smoking Hx information available PLAN OF CARE VITAL SIGNS Height 66 in 2016-01-17 Weight 277.6 lbs 2016-01-17 Heart Rate 72 bpm 2016-01-17 Respiratory Rate 18 2016-01-17 BMI 44.80 kg/m2 2016-01-17 Blood pressure systolic 132 mmHg 2016-01-17 Blood pressure diastolic 84 mmHg 2016-01-17 MEDICATIONS Medication Instructions Dosage Frequency Start Date End Date Duration Status Oxybutynin Chloride 5MG 1 tablet 12h 30 Active Diclofenac Sodium 75MG DR Orally Twice a day 1 tablet 12h 30 Active Lipitor 40 MG 1 tablet 24h Oct, Active Diuretic 5mg by oral route Once a day 1 tablet 24h Active Metoprolol Succinate 100 mg 1 tablet 24h Jul, Active Sertraline HCl 100MG 1 tablet 24h 30 Active Aspirin 81 MG Orally Once a day 1 tablet 24h Active Pantoprazole Sodium 20 MG Orally Once a day 1 tablet 24h Jul, 30 day(s) Active Ciprofloxacin HCl 500 MG Orally Twice a day 1 tablet 12h 12 Jan, 2016 Jan, 05 days Active RESULTS Name Result Date Reference Range UA LONG DIP (IN HOUSE) 2016-01-17 Lot # [id number] Exp date 06/2016 Clarity clear Color yellow Odor none GLU negative NIKO negative KET negative SG 1.010 BLO 3+ pH 5.5 Protein negative URO 0.2 NIT negative ALICJA 1+ Lot # Exp date CT Scan : Abd & Pelvis w/o contrast (STONE PROTOCOL) 2016-01-17 PROCEDURES Procedure Date Ordered Related Diagnosis Body Site URINALYSIS, AUTO, W/O SCOPE Jan 17, 2016 Office Visit, Est Pt., Level 3 Jan 17, 2016 IMMUNIZATIONS No Known Immunizations
--- OUTSIDE RECORDS SUMMARY | 2017-08-14 07:12 | XMS REPORT ---
Author Author 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 [facility] Address [address] [place] [address] Care Team Providers Care Ring Stamper Name Role Phone 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 Unavailable PROBLEMS Type Condition ICD9-CM Code [id number] Code Onset Dates Condition Status SNOMED Code Problem Hx of cardiac pacemaker Z95.0 Active 031267142 Problem Hypertension I10 Active 27220223 ALLERGIES Substance Reaction Event Type Date Status Penicillin G Potassium Unknown Drug Allergy Jun, Active SOCIAL HISTORY Never Assessed PLAN OF CARE Activity Details Follow Up prn Reason: VITAL SIGNS Height 66 in 2016-06-08 Weight 275 lbs 2016-06-08 Temperature 98.3 degrees Fahrenheit 2016-06-08 Heart Rate 50 bpm 2016-06-08 Respiratory Rate 20 2016-06-08 BMI 44.38 kg/m2 2016-06-08 Blood pressure systolic 148 mmHg 2016-06-08 Blood pressure diastolic 80 mmHg 2016-06-08 MEDICATIONS Medication Instructions Dosage Frequency Start Date End Date Duration Status Aspirin 81 MG Orally Once a day 1 tablet 24h Active Metoprolol Succinate 100 mg 1 tablet 24h Jul, Active Lipitor 40 MG 1 tablet 24h Oct, Active Diclofenac Sodium 75MG DR TAKE ONE TABLET BY MOUTH TWICE DAILY 30 Active PredniSONE 20 mg Orally Once a day 3 tablets x 4 days then 3 tablets x 3 days 2 tablets x 2 days 1 tablet x 1 day 24h Jun, Jun, 10 days Active Pantoprazole Sodium 20 MG Orally Once a day 1 tablet 24h Jul, 30 day(s) Active Sertraline HCl 100MG 1 tablet 24h 30 Active Symbicort 160-4.5 MCG/ACT Inhalation Twice a day prn cough 2 puffs JunAug, 30 days Active Diuretic 5mg by oral route Once a day 1 tablet 24h Active Oxybutynin Chloride 5MG 1 tablet 12h 30 Active RESULTS No Results PROCEDURES Procedure Date Ordered Result Body Site DEPO MEDROL 80 MG/ML Jun 08, 2016 THER/PROPH/DIAG INJ, SC/IM Jun 08, 2016 IMMUNIZATIONS Vaccine Route Administration Date Status DEPO MEDROL 80 MG/ML IM Intramuscular Jun 08, 2016 Administered MEDICAL (GENERAL) HISTORY Type Description Date Medical History HTN Medical History pacemaker Medical History bradychardia Medical History COPD Medical History sleep apnea Surgical History pacemaker Surgical History bilateral carpal tunnel Surgical History left ankle ligament repair Surgical History scope on right knee Surgical History kidney stone removal Hospitalization History surgeries
--- OUTSIDE RECORDS SUMMARY | 2017-08-14 07:12 | XMS REPORT ---
Author Author 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 Organization [employer] Address Unknown Phone Unavailable Care Team Providers Care Natural Resource Technician Name Role Phone 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 CP Unavailable Allergies No Known Allergies Problems Problem Type Condition Code Onset Dates Condition Status Problem Asymptomatic varicose veins 454.9 Active Problem Decreased libido 799.81 Active Problem Asymptomatic postmenopausal status (age-related) (natural) V49.81 Active Problem Pain in joint, lower leg 719.46 Active Problem Screening for malignant neoplasm of the cervix V76.2 Active Problem Unspecified ventral hernia without mention of obstruction or gangrene 553.20 Active Problem Unspecified hypertrophic and atrophic condition of skin 701.9 Active Problem Cough 786.2 Active Problem Hypertension I10 Active Problem Abdominal pain, right lower quadrant 789.03 Active Problem Need for prophylactic vaccination and inoculation, Influenza V04.81 Active Problem Pneumonia, organism unspecified 486 Active Problem Acute bronchitis 466.0 Active Problem Routine gynecological examination V72.31 Active Problem Hernia of unspecified site of abdominal cavity without mention of obstruction or gangrene 553.9 Active Problem Special screening examination, human papillomavirus [HPV] V73.81 Active Problem Unspecified breast screening V76.10 Active Problem Pain in joint, ankle and foot 719.47 Active Problem Achilles bursitis or tendinitis 726.71 Active Problem Obesity, unspecified 278.00 Active Problem Acute sinusitis, unspecified 461.9 Active Assessment Encounter for immunization Z23 Active Problem Urinary tract infection, site not specified 599.0 Active Problem Acute upper respiratory infections of unspecified site 465.9 Active Medications No Known Medications Procedures Procedure Coding System Code Date SINGLE IMMUNIZATION ADMIN CPT-4 00553 Feb 11, 2016 FLUARIX QUAD P-FREE 3 AND UP .50 2015 CPT-4 35904 Feb 11, 2016 Results No Known Results Immunizations Vaccine Administration Date FLUARIX QUAD P-FREE 3 AND UP .50 2015Feb 11, 2016 Summary Purpose [employer] Submission
--- OUTSIDE RECORDS SUMMARY | 2017-08-14 07:12 | XMS REPORT ---
Author Author 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 [facility] Address [address] [place] [address] Care Team Providers Care Retail Performance Specialist Name Role Phone JANETTRUANTONIO Unavailable PROBLEMS Type Condition ICD9-CM Code [id number] Code Onset Dates Condition Status SNOMED Code Problem Asymptomatic varicose veins 454.9 Active 316677254 Problem Abdominal pain, right lower quadrant 789.03 Active 340451179 Problem Asymptomatic postmenopausal status (age-related) (natural) V49.81 Active 59707162 Problem Hx of cardiac pacemaker Z95.0 Active 314902882 Problem Hypertension I10 Active 37693936 Problem Pneumonia, organism unspecified 486 Active 934026800 Problem Acute bronchitis 466.0 Active 35417838 Problem Pain in joint, lower leg 719.46 Active 866588601 Problem Unspecified ventral hernia without mention of obstruction or gangrene 553.20 Active 275796308 Problem Cough 786.2 Active 92128198 Problem Unspecified hypertrophic and atrophic condition of skin 701.9 Active 073771366 Assessment Elevated blood pressure reading R03.0 Apr, Active 36713714 Assessment Dizziness R42 Apr, Active 149202159 Problem Obesity, unspecified 278.00 Active 836500863 Problem Urinary tract infection, site not specified 599.0 Active 32117685 Problem Routine gynecological examination V72.31 Active 482970761664914 Problem Pain in joint, ankle and foot 719.47 Active 565662745 Problem Hernia of unspecified site of abdominal cavity without mention of obstruction or gangrene 553.9 Active 35782991 Problem Achilles bursitis or tendinitis 726.71 Active 712954179 ALLERGIES Substance Reaction Event Type Date Status Penicillin G Potassium Unknown Drug Allergy Apr, Active SOCIAL HISTORY No smoking Hx information available PLAN OF CARE Activity Details Pending Test CMP prn,Reason: VITAL SIGNS Height 66 in 2016-04-18 Weight 277.6 lbs 2016-04-18 Heart Rate 64 bpm 2016-04-18 Respiratory Rate 18 2016-04-18 Oximetry 98 % 2016-04-18 BMI 44.80 kg/m2 2016-04-18 Blood pressure systolic 161 mmHg 2016-04-18 Blood pressure diastolic 72 mmHg 2016-04-18 MEDICATIONS Medication Instructions Dosage Frequency Start Date End Date Duration Status Pantoprazole Sodium 20 MG Orally Once a day 1 tablet 24h Jul, 30 day(s) Active Aspirin 81 MG Orally Once a day 1 tablet 24h Active Diuretic 5mg by oral route Once a day 1 tablet 24h Active Diclofenac Sodium 75MG DR TAKE ONE TABLET BY MOUTH TWICE DAILY 30 Active Oxybutynin Chloride 5MG 1 tablet 12h 30 Active Lipitor 40 MG 1 tablet 24h Oct, Active Metoprolol Succinate 100 mg 1 tablet 24h Jul, Active Sertraline HCl 100MG 1 tablet 24h 30 Active RESULTS Name Result Date Reference Range CALCIUM 2016-04-18 Request Problem Calcium, Serum MAGNESIUM, SERUM 2016-04-18 NTI Urine Tube (Loza) Please note Request Problem Request Problem Request Problem Magnesium, Serum CMP 2016-04-18 Request Problem NTI Urine Tube (Loza) Gifty Silva CMP14 Default Request Problem Request Problem Sodium, Serum Potassium, Serum Chloride, Serum Carbon Dioxide, Total BUN Creatinine, Serum eGFR If NonAfricn Am eGFR If Africn Am BUN/Creatinine Ratio Glucose, Serum Calcium, Serum Bilirubin, Total AST (SGOT) ALT (SGPT) Alkaline Phosphatase, S Protein, Total, Serum Albumin, Serum Globulin, Total A/G Ratio Specimen Identification Status Please note PROCEDURES Procedure Date Ordered Related Diagnosis Body Site MEASURE BLOOD OXYGEN LEVEL Apr 18, 2016 Office Visit, Est Pt., Level 3 Apr 18, 2016 IMMUNIZATIONS No Known Immunizations
--- OUTSIDE RECORDS SUMMARY | 2017-08-14 07:12 | XMS REPORT ---
Author KEN Pearson [facility] [employer] Address Unknown Phone Unavailable Care Team Providers Care Textile Coating Machine Operator Name Role Phone KEN DALY CP Unavailable Allergies, Adverse Reactions, Alerts Substance Reaction Event Type Penicillin G Potassium Info Not Available Drug Allergy Problems Problem Type Condition Code Onset Dates Condition Status Problem Acute sinusitis, unspecified 461.9 Active Assessment Contusion of knee, right S80.01XA Active Problem Acute upper respiratory infections of unspecified site 465.9 Active Assessment Contusion of elbow, right S50.01XA Active Problem Asymptomatic varicose veins 454.9 Active Problem Decreased libido 799.81 Active Problem Asymptomatic postmenopausal status (age-related) (natural) V49.81 Active Problem Pain in joint, lower leg 719.46 Active Problem Unspecified ventral hernia without mention of obstruction or gangrene 553.20 Active Problem Screening for malignant neoplasm of the cervix V76.2 Active Problem Unspecified hypertrophic and atrophic condition of skin 701.9 Active Problem Hypertension I10 Active Problem Cough 786.2 Active Problem Abdominal pain, right lower quadrant [...] Active Problem Obesity, unspecified 278.00 Active Problem Urinary tract infection, site not specified 599.0 Active Medications Medication Code System Code Instructions Start Date End Date Status Dosage Diclofenac Sodium [facility] 75154251979 75MG DR Orally Twice a day 1 tablet Diuretic NDC 0 5mg by oral route Once a day 1 tablet Tramadol HCl [facility] [address]-93 50 MG Orally every 6 hrs 1 [place] [address]-40 40 MG Once a day October 11, 2011 1 tablet Sertraline HCl [facility] 31371943535 100MG Once a day 1 tablet Aspirin [facility] 85846-28978 81 MG Orally Once a day 1 tablet Pantoprazole Sodium [facility] [address]-24 20 MG Orally Once a day July 09, 2015 1 tablet Metoprolol Succinate [facility] 0 100 mg Once a day August 04, 2013 1 tablet Oxybutynin Chloride [facility] 20044049331 5MG 2 times a day 1 tablet Procedures Procedure Coding System Code Date Office Visit, Est Pt., Level 3 CPT-4 14198 November 26, 2015 Vital Signs Date/Time: November 26, 2015 Cardiac Monitoring Heart Rate 68 bpm Weight 272 lbs Height 66 in Blood Pressure Diastolic 72 mmHg Blood Pressure Systolic 132 mmHg Results No Known Results Summary Purpose [employer] Submission
--- OUTSIDE RECORDS SUMMARY | 2017-08-14 07:12 | XMS REPORT ---
Author Author KEN DALY Organization [facility] Address [address] [place] [address] Care Team Providers Care Clean Up Helper Banquet Name Role Phone KEN DALY Unavailable PROBLEMS Type Condition ICD9-CM Code [id number] Code Onset Dates Condition Status SNOMED Code Problem Hx of cardiac pacemaker Z95.0 Active 588482249 Problem Hypertension I10 Active 98905220 ALLERGIES Substance Reaction Event Type Date Status Penicillin G Potassium Unknown Drug Allergy Jul, Active SOCIAL HISTORY Never Assessed PLAN OF CARE Activity Details Follow Up 4 Weeks Reason:leg pain VITAL SIGNS Height 66 in 2016-07-10 Weight 287 lbs 2016-07-10 Temperature 98.1 degrees Fahrenheit 2016-07-10 Heart Rate 74 bpm 2016-07-10 Respiratory Rate 20 2016-07-10 BMI 46.32 kg/m2 2016-07-10 Blood pressure systolic 128 mmHg 2016-07-10 Blood pressure diastolic 78 mmHg 2016-07-10 MEDICATIONS Medication Instructions Dosage Frequency Start Date End Date Duration Status Pantoprazole Sodium 40 MG Orally Once a day 1 tablet 24h Jul, 30 day(s) Active Aspirin 81 MG Orally Once a day 1 tablet 24h 30 days Active Metoprolol Succinate 100 mg 1 tablet 24h Jul, Active Sertraline HCl 100MG 1 tablet 24h 30 Active Lipitor 40 MG 1 tablet 24h Oct, Active Diuretic 5mg by oral route Once a day 1 tablet 24h 30 days Active Oxybutynin Chloride 5MG 1 tablet 12h 30 Active Diclofenac Sodium [address]MG DR Orally Twice a day TAKE ONE TABLET BY MOUTH TWICE DAILY 12h 30 Active Gabapentin 100 MG Orally at bedtime 1 capsule Jul, 30 days Active RESULTS No Results PROCEDURES No Known procedures IMMUNIZATIONS No Known Immunizations MEDICAL (GENERAL) HISTORY Type Description Date Medical History HTN Medical History pacemaker Medical History bradychardia Medical History COPD Medical History sleep apnea Surgical History pacemaker Surgical History bilateral carpal tunnel Surgical History left ankle ligament repair Surgical History scope on right knee Surgical History kidney stone removal Hospitalization History surgeries
--- OUTSIDE RECORDS SUMMARY | 2017-08-14 07:13 | XMS REPORT ---
Author Author 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 [facility] [employer] Address Unknown Phone Unavailable Care Team Providers Care Instrument Lens Grinder Name Role Phone 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 CP Unavailable Allergies No Known Allergies Problems Problem Type Condition Code Onset Dates Condition Status Problem Acute upper respiratory infections of unspecified site 465.9 Active Problem Asymptomatic postmenopausal status (age-related) (natural) V49.81 Active Problem Asymptomatic varicose veins 454.9 Active Problem Unspecified ventral hernia without mention of obstruction or gangrene 553.20 Active Problem Unspecified hypertrophic and atrophic condition of skin 701.9 Active Problem Pneumonia, organism unspecified 486 Active Problem Cough 786.2 Active Assessment Encounter for immunization Z23 Active Problem Pain in joint, lower leg 719.46 Active Problem Need for prophylactic vaccination and inoculation, Influenza V04.81 Active Problem Decreased libido 799.81 Active Problem Acute bronchitis 466.0 Active Problem Abdominal pain, right lower quadrant 789.03 Active Problem Unspecified breast screening V76.10 Active Problem Routine gynecological examination V72.31 Active Problem Screening for malignant neoplasm of the cervix V76.2 Active Problem Special screening examination, human papillomavirus [HPV] V73.81 Active Problem Urinary tract infection, site not specified 599.0 Active Problem Pain in joint, ankle and foot 719.47 Active Problem Hernia of unspecified site of abdominal cavity without mention of obstruction or gangrene 553.9 Active Problem Achilles bursitis or tendinitis 726.71 Active Problem Obesity, unspecified 278.00 Active Problem Acute sinusitis, unspecified 461.9 Active Medications No Known Medications Procedures Procedure Coding System Code Date SINGLE IMMUNIZATION ADMIN CPT-4 30849 Feb 11, 2015 FLUARIX QUAD (3 & UP)-GSK-2014 CPT-4 91714 Feb 11, 2015 Results No Known Results Immunizations Vaccine Administration Date FLUARIX QUAD (3 & UP)-GSK-2014Feb 11, 2015 Summary Purpose [employer] Submission
--- OUTSIDE RECORDS SUMMARY | 2017-08-14 07:13 | XMS REPORT ---
Author Author KEN DALY [facility] [employer] Address Unknown Phone Unavailable Care Team Providers Care Exhibit Artist Name Role Phone KEN DALY CP Unavailable Allergies No Known Allergies Problems [...] infection, site not specified 599.0 Active Medications No Known Medications Procedures Procedure Coding System Code Date X-RAY EXAM OF ELBOW CPT-4 85427 Dec 06, 2015 Results No Known Results Summary Purpose [employer] Submission
--- OUTSIDE RECORDS SUMMARY | 2017-08-14 07:14 | XMS REPORT ---
Author Author KEN DALY [facility] [employer] Address Unknown Phone Unavailable Care Team Providers Care Chute Worker Name Role Phone KEN DALY CP Unavailable Allergies, Adverse Reactions, Alerts Substance Reaction Event Type Penicillin G Potassium Info Not Available Drug Allergy Problems Problem Type Condition ICD-9 Code Onset Dates Condition Status Problem Acute upper respiratory infections of unspecified site 465.9 Active Problem Asymptomatic postmenopausal status (age-related) (natural) V49.81 Active Problem Asymptomatic varicose veins 454.9 Active Problem Unspecified ventral hernia without mention of obstruction or gangrene 553.20 Active Problem Unspecified hypertrophic and atrophic condition of skin 701.9 Active Problem Pneumonia, organism unspecified 486 Active Problem Cough 786.2 Active Assessment Arthritis 716.90 Active Problem Pain in joint, lower leg [...] Problem Acute sinusitis, unspecified 461.9 Active Medications Medication Code System Code Instructions Start Date End Date Status Dosage Zoloft [facility] [address]-93 100 MG Orally Once a day December 03, 2014 1 tablet Aspirin [facility] 13254-64972 81 MG Orally Once a day 1 tablet Oxybutynin Chloride [facility] 72090394840 5MG TAKE ONE TABLET BY MOUTH TWICE DAILY...PLEASE MAKE AN APPT WITH KATIE DALY Lipitor [facility] [address]-79 40 mg October 11, 2011 take 1 tablet (40 mg ) by oral route once daily at bedtime pantoprazole NDC 0 20 mg August 04, 2013 take 1 tablet (20 mg) by oral route once daily Metoprolol Succinate NDC 0 100 mg August 04, 2013 take 1 tablet ( 100 mg) by oral route once daily Diclofenac Sodium [facility] [address]-94 75 MG Orally Twice a day Jan 01, 2015 Apr 01, 2015 1 tablet Procedures Procedure Coding System Code Date Office Visit, Est Pt., Level 3 CPT-4 75589 Jan 01, 2015 Vital Signs Date/Time: Jan 01, 2015 Temperature 97.9 F Weight 274. lbs Height 66 in BMI 44.22 Index Blood Pressure Diastolic 82 mmHg Blood Pressure Systolic 140 mmHg Cardiac Monitoring Heart Rate 72 bpm Results No Known Results Summary Purpose [employer]ClinicalWorks Submission
[2017-08-14] MEDS ORDERED: LEVOFLOXACIN 250 MG/50 ML IVPB 50 ML IV ONE (07:15)
--- OUTSIDE RECORDS SUMMARY | 2017-08-14 07:17 | XMS REPORT | Continuity of Care Document ---
Author Author [facility] Address Unknown Phone Unavailable Allergies Active Description Code Type Severity Reaction Onset Reported/Identified Relationship to Patient Clinical Status Yes Penicillins Drug Allergy 06/12/2008 Yes Penicillins Drug Allergy N/A N/A 06/12/2008 Yes NKANo Known Allergies NKA Miscellaneous Allergy Mild N/A 09/04/2008 Yes Penicillins [id number] Drug Allergy Mild N/A 09/30/2008 Medications There is no data. Problems Date Dx Coded Attending Type Code Diagnosis Diagnosed By 11/11/2007 250.02 DIABETES II UNCONTROLLED 11/11/2007 272.4 HYPERLIPIDEMIA UNSPECIFIED 11/11/2007 401.1 HYPERTENSION, BENIGN ESSENTIAL 11/11/2007 458.0 ORTHOSTATIC HYPOTENSION 11/11/2007 250.02 DIABETES II UNCONTROLLED 11/11/2007 272.4 HYPERLIPIDEMIA UNSPECIFIED 11/11/2007 401.1 HYPERTENSION, BENIGN ESSENTIAL 11/11/2007 458.0 ORTHOSTATIC HYPOTENSION 11/11/2007 NATO PARADA APRN 250.02 DIABETES II UNCONTROLLED 11/11/2007 NATO PARADA APRN R 272.4 HYPERLIPIDEMIA UNSPECIFIED 11/11/2007 NATO PARADA APRN R 401.1 HYPERTENSION, BENIGN ESSENTIAL 11/11/2007 NATO PARADA APRN R 458.0 ORTHOSTATIC HYPOTENSION 11/11/2007 KEN DALY APRN 250.02 DIABETES II UNCONTROLLED 11/11/2007 KEN DALY APRN 272.4 HYPERLIPIDEMIA UNSPECIFIED 11/11/2007 KEN DALY APRN 401.1 HYPERTENSION, BENIGN ESSENTIAL 11/11/2007 KEN DALY APRN 458.0 ORTHOSTATIC HYPOTENSION 11/11/2007 250.02 DIABETES II UNCONTROLLED 11/11/2007 272.4 HYPERLIPIDEMIA UNSPECIFIED 11/11/2007 401.1 HYPERTENSION, BENIGN ESSENTIAL 11/11/2007 458.0 ORTHOSTATIC HYPOTENSION 11/11/2007 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 APRN 250.02 DIABETES II UNCONTROLLED 11/11/2007 RAJOTTE COMMUTER TRAIN OPERATOR, ANTONIO A 272.4 HYPERLIPIDEMIA UNSPECIFIED 11/11/2007 RAJOTTE COMMUTER TRAIN OPERATOR, ANTONIO A 401.1 HYPERTENSION, BENIGN ESSENTIAL 11/11/2007 RAJOTTE COMMUTER TRAIN OPERATOR, ANTONIO A 458.0 ORTHOSTATIC HYPOTENSION 11/11/2007 RAJOTTE COMMUTER TRAIN OPERATOR, ANTONIO A 250.02 DIABETES II UNCONTROLLED 11/11/2007 RAJOTTE COMMUTER TRAIN OPERATOR, ANTONIO A 272.4 HYPERLIPIDEMIA UNSPECIFIED 11/11/2007 RAJOTTE COMMUTER TRAIN OPERATOR, ANTONIO A 401.1 HYPERTENSION, BENIGN ESSENTIAL 11/11/2007 RAJOTTE COMMUTER TRAIN OPERATOR, ANTONIO A 458.0 ORTHOSTATIC HYPOTENSION 11/11/2007 RAJOTTE COMMUTER TRAIN OPERATOR, ANTONIO A 250.02 DIABETES II UNCONTROLLED 11/11/2007 RAJOTTE COMMUTER TRAIN OPERATOR, ANTONIO A 272.4 HYPERLIPIDEMIA UNSPECIFIED 11/11/2007 RAJOTTE COMMUTER TRAIN OPERATOR, ANTONIO A 401.1 HYPERTENSION, BENIGN ESSENTIAL 11/11/2007 RAJOTTE COMMUTER TRAIN OPERATOR, ANTONIO A 458.0 ORTHOSTATIC HYPOTENSION 11/11/2007 RAJOTTE COMMUTER TRAIN OPERATOR, ANTONIO A 250.02 DIABETES II UNCONTROLLED 11/11/2007 RAJOTTE COMMUTER TRAIN OPERATOR, ANTONIO A 272.4 HYPERLIPIDEMIA UNSPECIFIED 11/11/2007 RAJOTTE COMMUTER TRAIN OPERATOR, ANTONIO A 401.1 HYPERTENSION, BENIGN ESSENTIAL 11/11/2007 RAJOTTE COMMUTER TRAIN OPERATOR, ANTONIO A 458.0 ORTHOSTATIC HYPOTENSION 11/11/2007 RAJOTTE COMMUTER TRAIN OPERATOR, ANTONIO A 250.02 DIABETES II UNCONTROLLED 11/11/2007 RAJOTTE COMMUTER TRAIN OPERATOR, ANTONIO A 272.4 HYPERLIPIDEMIA UNSPECIFIED 11/11/2007 RAJOTTE COMMUTER TRAIN OPERATOR, ANTONIO A 401.1 HYPERTENSION, BENIGN ESSENTIAL 11/11/2007 RAJOTTE COMMUTER TRAIN OPERATOR, ANTONIO A 458.0 ORTHOSTATIC HYPOTENSION 11/11/2007 RAJOTTE COMMUTER TRAIN OPERATOR, ANTONIO A 250.02 DIABETES II UNCONTROLLED 11/11/2007 RAJOTTE COMMUTER TRAIN OPERATOR, ANTONIO A 272.4 HYPERLIPIDEMIA UNSPECIFIED 11/11/2007 RAJOTTE COMMUTER TRAIN OPERATOR, ANTONIO A 401.1 HYPERTENSION, BENIGN ESSENTIAL 11/11/2007 RAJOTTE COMMUTER TRAIN OPERATOR, ANTONIO A 458.0 ORTHOSTATIC HYPOTENSION 11/11/2007 KEN DALY APRN 250.02 DIABETES II UNCONTROLLED 11/11/2007 KEN DALY APRN 272.4 HYPERLIPIDEMIA UNSPECIFIED 11/11/2007 KEN DALY APRN 401.1 HYPERTENSION, BENIGN ESSENTIAL 11/11/2007 KEN DALY APRN 458.0 ORTHOSTATIC HYPOTENSION 11/11/2007 LUIZ LEGER MD 250.02 DIABETES II UNCONTROLLED 11/11/2007 LUIZ LEGER MD 272.4 HYPERLIPIDEMIA UNSPECIFIED 11/11/2007 LUIZ LEGER MD 401.1 HYPERTENSION, BENIGN ESSENTIAL 11/11/2007 LUIZ LEGER MD 458.0 ORTHOSTATIC HYPOTENSION 11/11/2007 RAJOTTE COMMUTER TRAIN OPERATOR, ANTONIO A 250.02 DIABETES II UNCONTROLLED 11/11/2007 RAJOTTE COMMUTER TRAIN OPERATOR, ANTONIO A 272.4 HYPERLIPIDEMIA UNSPECIFIED 11/11/2007 RAJOTTE COMMUTER TRAIN OPERATOR, ANTONIO A 401.1 HYPERTENSION, BENIGN ESSENTIAL 11/11/2007 RAJOTTE COMMUTER TRAIN OPERATOR, ANTONIO A 458.0 ORTHOSTATIC HYPOTENSION 11/11/2007 KEN DALY APRN 250.02 DIABETES II UNCONTROLLED 11/11/2007 KEN DALY APRN 272.4 HYPERLIPIDEMIA UNSPECIFIED 11/11/2007 KEN DALY APRN 401.1 HYPERTENSION, BENIGN ESSENTIAL 11/11/2007 KEN DALY APRN 458.0 ORTHOSTATIC HYPOTENSION 11/11/2007 RAJOTTE COMMUTER TRAIN OPERATOR, ANTONIO A 250.02 DIABETES II UNCONTROLLED 11/11/2007 RAJOTTE COMMUTER TRAIN OPERATOR, ANTONIO A 272.4 HYPERLIPIDEMIA UNSPECIFIED 11/11/2007 RAJOTTE COMMUTER TRAIN OPERATOR, ANTONIO A 401.1 HYPERTENSION, BENIGN ESSENTIAL 11/11/2007 RAJOTTE COMMUTER TRAIN OPERATOR, ANTONIO A 458.0 ORTHOSTATIC HYPOTENSION 11/11/2007 COLIN DO, GINA K 250.02 DIABETES II UNCONTROLLED 11/11/2007 COLIN DO, GINA K 272.4 HYPERLIPIDEMIA UNSPECIFIED 11/11/2007 COLIN DO, GINA K 401.1 HYPERTENSION, BENIGN ESSENTIAL 11/11/2007 COLIN DO, GINA K 458.0 ORTHOSTATIC HYPOTENSION 11/11/2007 RAJOTTE COMMUTER TRAIN OPERATOR, ANTONIO A 250.02 DIABETES II UNCONTROLLED 11/11/2007 RAJOTTE COMMUTER TRAIN OPERATOR, ANTONIO A 272.4 HYPERLIPIDEMIA UNSPECIFIED 11/11/2007 RAJOTTE COMMUTER TRAIN OPERATOR, ANTONIO A 401.1 HYPERTENSION, BENIGN ESSENTIAL 11/11/2007 RAJOTTE COMMUTER TRAIN OPERATOR, ANTONIO A 458.0 ORTHOSTATIC HYPOTENSION 11/11/2007 250.02 DIABETES II UNCONTROLLED 11/11/2007 272.4 HYPERLIPIDEMIA UNSPECIFIED 11/11/2007 401.1 HYPERTENSION, BENIGN ESSENTIAL 11/11/2007 458.0 ORTHOSTATIC HYPOTENSION 11/11/2007 KELLEY COMMUTER TRAIN OPERATOR, AIDAN A 250.02 DIABETES II UNCONTROLLED 11/11/2007 KELLEY COMMUTER TRAIN OPERATOR, AIDAN A 272.4 HYPERLIPIDEMIA UNSPECIFIED 11/11/2007 KELLEY COMMUTER TRAIN OPERATOR, AIDAN A 401.1 HYPERTENSION, BENIGN ESSENTIAL 11/11/2007 KELLEY COMMUTER TRAIN OPERATOR, AIDAN A 458.0 ORTHOSTATIC HYPOTENSION 11/11/2007 RAJOTTE COMMUTER TRAIN OPERATOR, ANTONIO A 250.02 DIABETES II UNCONTROLLED 11/11/2007 RAJOTTE COMMUTER TRAIN OPERATOR, ANTONIO A 272.4 HYPERLIPIDEMIA UNSPECIFIED 11/11/2007 RAJOTTE COMMUTER TRAIN OPERATOR, ANTONIO A 401.1 HYPERTENSION, BENIGN ESSENTIAL 11/11/2007 RAJOTTE COMMUTER TRAIN OPERATOR, ANTONIO A 458.0 ORTHOSTATIC HYPOTENSION 11/11/2007 LASHAWN CASHYAEL COMMUTER TRAIN OPERATOR, CHANDU N 250.02 DIABETES II UNCONTROLLED 11/11/2007 LASHAWN WEINERERO COMMUTER TRAIN OPERATOR, CHANDU N 272.4 HYPERLIPIDEMIA UNSPECIFIED 11/11/2007 HARDIN CASHERO COMMUTER TRAIN OPERATOR, CHANDU N 401.1 HYPERTENSION, BENIGN ESSENTIAL 11/11/2007 HARDIN CASHERO COMMUTER TRAIN OPERATOR, CHANDU N 458.0 ORTHOSTATIC HYPOTENSION 02/10/2008 250.00 DIABETES II CONTROLLED 02/10/2008 401.9 UNSPECIFIED ESSENTIAL HYPERTENSION 02/10/2008 V03.82 PCV7 PCV23, STREPTOCOCCUS PNEUMONIAE [PNEUMOCOCCUS] 02/10/2008 V04.81 NEED FOR PROPHYLACTIC VACCINATION AND INOCULATION AGAINST INFLUENZA 02/10/2008 250.00 DIABETES II CONTROLLED 02/10/2008 401.9 UNSPECIFIED ESSENTIAL HYPERTENSION 02/10/2008 V03.82 PCV7 PCV23, STREPTOCOCCUS PNEUMONIAE [PNEUMOCOCCUS] 02/10/2008 V04.81 NEED FOR PROPHYLACTIC VACCINATION AND INOCULATION AGAINST INFLUENZA 02/10/2008 NATO PARADA APRN R 250.00 DIABETES II CONTROLLED 02/10/2008 NATO PARADA APRN R 401.9 UNSPECIFIED ESSENTIAL HYPERTENSION 02/10/2008 NATO PARADA APRN R V03.82 PCV7 PCV23, STREPTOCOCCUS PNEUMONIAE [PNEUMOCOCCUS] 02/10/2008 NATO PARADA APRN R V04.81 NEED FOR PROPHYLACTIC VACCINATION AND INOCULATION AGAINST INFLUENZA 02/10/2008 KEN DALY APRN 250.00 DIABETES II CONTROLLED 02/10/2008 MALIKA ADAMS KEN Dana 401.9 UNSPECIFIED ESSENTIAL HYPERTENSION 02/10/2008 MALIKA BRANDTKEN Farooq Dana V03.82 PCV7 PCV23, STREPTOCOCCUS PNEUMONIAE [PNEUMOCOCCUS] 02/10/2008 MALIKA BRANDTKEN Farooq Dana V04.81 NEED FOR PROPHYLACTIC VACCINATION AND INOCULATION AGAINST INFLUENZA 02/10/2008 250.00 DIABETES II CONTROLLED 02/10/2008 401.9 UNSPECIFIED ESSENTIAL HYPERTENSION 02/10/2008 V03.82 PCV7 PCV23, STREPTOCOCCUS PNEUMONIAE [PNEUMOCOCCUS] 02/10/2008 V04.81 NEED FOR PROPHYLACTIC VACCINATION AND INOCULATION AGAINST INFLUENZA 02/10/2008 KOREYE COMMUTER TRAIN OPERATOR, ANTONIO A 250.00 DIABETES II CONTROLLED 02/10/2008 RAJKORIE COMMUTER TRAIN OPERATOR, ANTONIO A 401.9 UNSPECIFIED ESSENTIAL HYPERTENSION 02/10/2008 ANTHONY ADAMS, ANTONIO A V03.82 PCV7 PCV23, STREPTOCOCCUS PNEUMONIAE [PNEUMOCOCCUS] 02/10/2008 KOREYE COMMUTER TRAIN OPERATOR, ANTONIO A V04.81 NEED FOR PROPHYLACTIC VACCINATION AND INOCULATION AGAINST INFLUENZA 02/10/2008 KOREYE COMMUTER TRAIN OPERATOR, ANTONIO A 250.00 DIABETES II CONTROLLED 02/10/2008 RAJKORIE COMMUTER TRAIN OPERATOR, ANTONIO A 401.9 UNSPECIFIED ESSENTIAL HYPERTENSION 02/10/2008 KOREYE COMMUTER TRAIN OPERATOR, ANTONIO A V03.82 PCV7 PCV23, STREPTOCOCCUS PNEUMONIAE [PNEUMOCOCCUS] 02/10/2008 ANTHONY BRANDTN, ANTONIO A V04.81 NEED FOR PROPHYLACTIC VACCINATION AND INOCULATION AGAINST INFLUENZA 02/10/2008 KOREYE COMMUTER TRAIN OPERATOR, ANTONIO A 250.00 DIABETES II CONTROLLED 02/10/2008 KOREYE COMMUTER TRAIN OPERATOR, ANTONIO A 401.9 UNSPECIFIED ESSENTIAL HYPERTENSION 02/10/2008 KOREYE COMMUTER TRAIN OPERATOR, ANTONIO A V03.82 PCV7 PCV23, STREPTOCOCCUS PNEUMONIAE [PNEUMOCOCCUS] 02/10/2008 JANETTOTTE COMMUTER TRAIN OPERATOR, ANTONIO A V04.81 NEED FOR PROPHYLACTIC VACCINATION AND INOCULATION AGAINST INFLUENZA 02/10/2008 KOREYE COMMUTER TRAIN OPERATOR, ANTONIO A 250.00 DIABETES II CONTROLLED 02/10/2008 RAJOTTE COMMUTER TRAIN OPERATOR, ANTONIO A 401.9 UNSPECIFIED ESSENTIAL HYPERTENSION 02/10/2008 KOREYE COMMUTER TRAIN OPERATOR, ANTONIO A V03.82 PCV7 PCV23, STREPTOCOCCUS PNEUMONIAE [PNEUMOCOCCUS] 02/10/2008 KOREYE COMMUTER TRAIN OPERATOR, ANTONIO A V04.81 NEED FOR PROPHYLACTIC VACCINATION AND INOCULATION AGAINST INFLUENZA 02/10/2008 RAJOTTE COMMUTER TRAIN OPERATOR, ANTONIO A 250.00 DIABETES II CONTROLLED 02/10/2008 RAJOTTE COMMUTER TRAIN OPERATOR, ANTONIO A 401.9 UNSPECIFIED ESSENTIAL HYPERTENSION 02/10/2008 RAJOTTE COMMUTER TRAIN OPERATOR, ANTONIO A V03.82 PCV7 PCV23, STREPTOCOCCUS PNEUMONIAE [PNEUMOCOCCUS] 02/10/2008 RAJOTTE COMMUTER TRAIN OPERATOR, ANTONIO A V04.81 NEED FOR PROPHYLACTIC VACCINATION AND INOCULATION AGAINST INFLUENZA 02/10/2008 RAJOTTE COMMUTER TRAIN OPERATOR, ANTONIO A 250.00 DIABETES II CONTROLLED 02/10/2008 RAJOTTE COMMUTER TRAIN OPERATOR, ANTONIO A 401.9 UNSPECIFIED ESSENTIAL HYPERTENSION 02/10/2008 RAJOTTE COMMUTER TRAIN OPERATOR, ANTONIO A V03.82 PCV7 PCV23, STREPTOCOCCUS PNEUMONIAE [PNEUMOCOCCUS] 02/10/2008 JANETTOTTE COMMUTER TRAIN OPERATOR, ANTONIO A V04.81 NEED FOR PROPHYLACTIC VACCINATION AND INOCULATION AGAINST INFLUENZA 02/10/2008 KEN DALY APRN 250.00 DIABETES II CONTROLLED 02/10/2008 KEN DALY APRN 401.9 UNSPECIFIED ESSENTIAL HYPERTENSION 02/10/2008 KEN DALY APRN V03.82 PCV7 PCV23, STREPTOCOCCUS PNEUMONIAE [PNEUMOCOCCUS] 02/10/2008 KEN DALY APRN V04.81 NEED FOR PROPHYLACTIC VACCINATION AND INOCULATION AGAINST INFLUENZA 02/10/2008 LUIZ LEGER MD 250.00 DIABETES II CONTROLLED 02/10/2008 LUIZ LEGER MD 401.9 UNSPECIFIED ESSENTIAL HYPERTENSION 02/10/2008 LUIZ LEGER MD V03.82 PCV7 PCV23, STREPTOCOCCUS PNEUMONIAE [PNEUMOCOCCUS] 02/10/2008 LUIZ LEGER MD V04.81 NEED FOR PROPHYLACTIC VACCINATION AND INOCULATION AGAINST INFLUENZA 02/10/2008 JANETTOTTE COMMUTER TRAIN OPERATOR, ANTONIO A 250.00 DIABETES II CONTROLLED 02/10/2008 RAJKORIE COMMUTER TRAIN OPERATOR, ANTONIO A 401.9 UNSPECIFIED ESSENTIAL HYPERTENSION 02/10/2008 KOREYE COMMUTER TRAIN OPERATOR, ANTONIO A V03.82 PCV7 PCV23, STREPTOCOCCUS PNEUMONIAE [PNEUMOCOCCUS] 02/10/2008 JANETTOTTE COMMUTER TRAIN OPERATOR, ANTONIO A V04.81 NEED FOR PROPHYLACTIC VACCINATION AND INOCULATION AGAINST INFLUENZA 02/10/2008 KEN DALY APRN 250.00 DIABETES II CONTROLLED 02/10/2008 KEN DALY APRN 401.9 UNSPECIFIED ESSENTIAL HYPERTENSION 02/10/2008 KEN DALY APRN V03.82 PCV7 PCV23, STREPTOCOCCUS PNEUMONIAE [PNEUMOCOCCUS] 02/10/2008 KEN DALY APRN V04.81 NEED FOR PROPHYLACTIC VACCINATION AND INOCULATION AGAINST INFLUENZA 02/10/2008 ANTHONY ADAMS, ANTONIO A 250.00 DIABETES II CONTROLLED 02/10/2008 ANTHONY ADAMS, ANTONIO A 401.9 UNSPECIFIED ESSENTIAL HYPERTENSION 02/10/2008 DARCY CRUZ APRNYL A V03.82 PCV7 PCV23, STREPTOCOCCUS PNEUMONIAE [PNEUMOCOCCUS] 02/10/2008 ANTHONY ADAMS ANTONIO A V04.81 NEED FOR PROPHYLACTIC VACCINATION AND INOCULATION AGAINST INFLUENZA 02/10/2008 COLIN DO, GINA K 250.00 DIABETES II CONTROLLED 02/10/2008 COLIN DO GINA K 401.9 UNSPECIFIED ESSENTIAL HYPERTENSION 02/10/2008 COLIN DO, GINA K V03.82 PCV7 PCV23, STREPTOCOCCUS PNEUMONIAE [PNEUMOCOCCUS] 02/10/2008 COLIN DO GINA K V04.81 NEED FOR PROPHYLACTIC VACCINATION AND INOCULATION AGAINST INFLUENZA 02/10/2008 ANTHONY ADAMS ANTONIO A 250.00 DIABETES II CONTROLLED 02/10/2008 ANTHONY ADAMS, ANTONIO A 401.9 UNSPECIFIED ESSENTIAL HYPERTENSION 02/10/2008 DARCY CRUZ APRNYL A V03.82 PCV7 PCV23, STREPTOCOCCUS PNEUMONIAE [PNEUMOCOCCUS] 02/10/2008 ANTHONY ADAMS ANTONIO A V04.81 NEED FOR PROPHYLACTIC VACCINATION AND INOCULATION AGAINST INFLUENZA 02/10/2008 250.00 DIABETES II CONTROLLED 02/10/2008 401.9 UNSPECIFIED ESSENTIAL HYPERTENSION 02/10/2008 V03.82 PCV7 PCV23, STREPTOCOCCUS PNEUMONIAE [PNEUMOCOCCUS] 02/10/2008 V04.81 NEED FOR PROPHYLACTIC VACCINATION AND INOCULATION AGAINST INFLUENZA 02/10/2008 KELLEY COMMUTER TRAIN OPERATOR, AIDAN A 250.00 DIABETES II CONTROLLED 02/10/2008 KELLEY COMMUTER TRAIN OPERATOR, AIDAN A 401.9 UNSPECIFIED ESSENTIAL HYPERTENSION 02/10/2008 KELLEY COMMUTER TRAIN OPERATOR, AIDAN A V03.82 PCV7 PCV23, STREPTOCOCCUS PNEUMONIAE [PNEUMOCOCCUS] 02/10/2008 KELLEY COMMUTER TRAIN OPERATOR, AIDAN A V04.81 NEED FOR PROPHYLACTIC VACCINATION AND INOCULATION AGAINST INFLUENZA 02/10/2008 ANTHONY BRANDTN, ANTONIO A 250.00 DIABETES II CONTROLLED 02/10/2008 ANTHONY ADAMS, ANTONIO A 401.9 UNSPECIFIED ESSENTIAL HYPERTENSION 02/10/2008 DARCY CRUZ APRNYL A V03.82 PCV7 PCV23, STREPTOCOCCUS PNEUMONIAE [PNEUMOCOCCUS] 02/10/2008 ANTHONY ADAMS, ANTONIO A V04.81 NEED FOR PROPHYLACTIC VACCINATION AND INOCULATION AGAINST INFLUENZA 02/10/2008 GISSELLE GARDNER APRNCY N 250.00 DIABETES II CONTROLLED 02/10/2008 GISSELLE GARDNER APRNCY N 401.9 UNSPECIFIED ESSENTIAL HYPERTENSION 02/10/2008 LASHAWN ALVAREZ APRN, CHANDU N V03.82 PCV7 PCV23, STREPTOCOCCUS PNEUMONIAE [PNEUMOCOCCUS] 02/10/2008 GISSELLE GARDNER APRNCY N V04.81 NEED FOR PROPHYLACTIC VACCINATION AND INOCULATION AGAINST INFLUENZA 05/18/2008 719.47 PAIN IN JOINT INVOLVING ANKLE AND FOOT 05/18/2008 790.29 PREDIABETES 05/18/2008 719.47 PAIN IN JOINT INVOLVING ANKLE AND FOOT 05/18/2008 790.29 PREDIABETES 05/18/2008 NATO PARADA APRN 719.47 PAIN IN JOINT INVOLVING ANKLE AND FOOT 05/18/2008 NATO PARADA APRN R 790.29 PREDIABETES 05/18/2008 KEN DALY APRN 719.47 PAIN IN JOINT INVOLVING ANKLE AND FOOT 05/18/2008 KEN DALY APRN 790.29 PREDIABETES 05/18/2008 719.47 PAIN IN JOINT INVOLVING ANKLE AND FOOT 05/18/2008 790.29 PREDIABETES 05/18/2008 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 APRN A 719.47 PAIN IN JOINT INVOLVING ANKLE AND FOOT 05/18/2008 DARCY CRUZ APRNYL A 790.29 PREDIABETES 05/18/2008 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 APRN A 719.47 PAIN IN JOINT INVOLVING ANKLE AND FOOT 05/18/2008 DARCY CRUZ APRNYL A 790.29 PREDIABETES 05/18/2008 ANTHONY ADAMS ANTONIO A 719.47 PAIN IN JOINT INVOLVING ANKLE AND FOOT 05/18/2008 ANTHONY ADAMS ANTONIO A 790.29 PREDIABETES 05/18/2008 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 APRN A 719.47 PAIN IN JOINT INVOLVING ANKLE AND FOOT 05/18/2008 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 APRN A 790.29 PREDIABETES 05/18/2008 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 APRN A 719.47 PAIN IN JOINT INVOLVING ANKLE AND FOOT 05/18/2008 DARCY CRUZ APRNYL A 790.29 PREDIABETES 05/18/2008 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 APRN A 719.47 PAIN IN JOINT INVOLVING ANKLE AND FOOT 05/18/2008 DARCY CRUZ APRNYL A 790.29 PREDIABETES 05/18/2008 KEN DALY APRN 719.47 PAIN IN JOINT INVOLVING ANKLE AND FOOT 05/18/2008 KEN DALY APRN 790.29 PREDIABETES 05/18/2008 LUIZ LEGER MD 719.47 PAIN IN JOINT INVOLVING ANKLE AND FOOT 05/18/2008 LUIZ LEGER MD 790.29 PREDIABETES 05/18/2008 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 APRN A 719.47 PAIN IN JOINT INVOLVING ANKLE AND FOOT 05/18/2008 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 APRN A 790.29 PREDIABETES 05/18/2008 KEN DALY APRN 719.47 PAIN IN JOINT INVOLVING ANKLE AND FOOT 05/18/2008 KEN DALY APRN 790.29 PREDIABETES 05/18/2008 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 APRN A 719.47 PAIN IN JOINT INVOLVING ANKLE AND FOOT 05/18/2008 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 APRN A 790.29 PREDIABETES 05/18/2008 COLIN DOMAKENZIEA K 719.47 PAIN IN JOINT INVOLVING ANKLE AND FOOT 05/18/2008 COLIN DO GINA K 790.29 PREDIABETES 05/18/2008 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 APRN A 719.47 PAIN IN JOINT INVOLVING ANKLE AND FOOT 05/18/2008 DARCY CRUZ APRNYL A 790.29 PREDIABETES 05/18/2008 719.47 PAIN IN JOINT INVOLVING ANKLE AND FOOT 05/18/2008 790.29 PREDIABETES 05/18/2008 AIDAN BENSON APRN 719.47 PAIN IN JOINT INVOLVING ANKLE AND FOOT 05/18/2008 AIDAN BENSON APRN 790.29 PREDIABETES 05/18/2008 RAJOTTE COMMUTER TRAIN OPERATOR, ANTONIO A 719.47 PAIN IN JOINT INVOLVING ANKLE AND FOOT 05/18/2008 RAJOTTE COMMUTER TRAIN OPERATOR, ANTONIO A 790.29 PREDIABETES 05/18/2008 HARDIN HUSAMYAEL COMMUTER TRAIN OPERATOR, CHANDU N 719.47 PAIN IN JOINT INVOLVING ANKLE AND FOOT 05/18/2008 LASHAWN ALVAREZ COMMUTER TRAIN OPERATOR, CHANDU N 790.29 PREDIABETES 06/12/2008 709.9 DERMATOLOGY - NON-INFECTIOUS 06/12/2008 709.9 DERMATOLOGY - NON-INFECTIOUS 06/12/2008 NATO PARADA APRN 709.9 DERMATOLOGY - NON-INFECTIOUS 06/12/2008 KEN DALY APRN 709.9 DERMATOLOGY - NON-INFECTIOUS 06/12/2008 709.9 DERMATOLOGY - NON-INFECTIOUS 06/12/2008 RAJOTTE COMMUTER TRAIN OPERATOR, ANTONIO A 709.9 DERMATOLOGY - NON-INFECTIOUS 06/12/2008 RAJOTTE COMMUTER TRAIN OPERATOR, ANTONIO A 709.9 DERMATOLOGY - NON-INFECTIOUS 06/12/2008 RAJOTTE COMMUTER TRAIN OPERATOR, ANTONIO A 709.9 DERMATOLOGY - NON-INFECTIOUS 06/12/2008 RAJOTTE COMMUTER TRAIN OPERATOR, ANTONIO A 709.9 DERMATOLOGY - NON-INFECTIOUS 06/12/2008 RAJOTTE COMMUTER TRAIN OPERATOR, ANTONIO A 709.9 DERMATOLOGY - NON-INFECTIOUS 06/12/2008 RAJOTTE COMMUTER TRAIN OPERATOR, ANTONIO A 709.9 DERMATOLOGY - NON-INFECTIOUS 06/12/2008 KEN DALY APRN 709.9 DERMATOLOGY - NON-INFECTIOUS 06/12/2008 LUIZ LEGER MD 709.9 DERMATOLOGY - NON-INFECTIOUS 06/12/2008 RAJOTTE COMMUTER TRAIN OPERATOR, ANTONIO A 709.9 DERMATOLOGY - NON-INFECTIOUS 06/12/2008 KEN DALY APRN 709.9 DERMATOLOGY - NON-INFECTIOUS 06/12/2008 RAJOTTE COMMUTER TRAIN OPERATOR, ANTONIO A 709.9 DERMATOLOGY - NON-INFECTIOUS 06/12/2008 GINA COLIN DO 709.9 DERMATOLOGY - NON-INFECTIOUS 06/12/2008 RAJOTTE COMMUTER TRAIN OPERATOR, ANTONIO A 709.9 DERMATOLOGY - NON-INFECTIOUS 06/12/2008 709.9 DERMATOLOGY - NON-INFECTIOUS 06/12/2008 KELLEY ADAMS, AIDAN A 709.9 DERMATOLOGY - NON-INFECTIOUS 06/12/2008 RAJOTTE COMMUTER TRAIN OPERATOR, ANTONIO A 709.9 DERMATOLOGY - NON-INFECTIOUS 06/12/2008 CHANDU GARDNER APRN N 709.9 DERMATOLOGY - NON-INFECTIOUS 06/17/2008 625.6 STRESS INCONTINENCE FEMALE 06/17/2008 625.6 STRESS INCONTINENCE FEMALE 06/17/2008 NATO PARADA APRN 625.6 STRESS INCONTINENCE FEMALE 06/17/2008 KEN DALY APRN 625.6 STRESS INCONTINENCE FEMALE 06/17/2008 625.6 STRESS INCONTINENCE FEMALE 06/17/2008 JANETTOTTE COMMUTER TRAIN OPERATOR, ANTONIO A 625.6 STRESS INCONTINENCE FEMALE 06/17/2008 RAJOTTE COMMUTER TRAIN OPERATOR, ANTONIO A 625.6 STRESS INCONTINENCE FEMALE 06/17/2008 RAJOTTE COMMUTER TRAIN OPERATOR, ANTONIO A 625.6 STRESS INCONTINENCE FEMALE 06/17/2008 RAJOTTE COMMUTER TRAIN OPERATOR, ANTONIO A 625.6 STRESS INCONTINENCE FEMALE 06/17/2008 RAJOTTE COMMUTER TRAIN OPERATOR, ANTONIO A 625.6 STRESS INCONTINENCE FEMALE 06/17/2008 KOREYE BRYAN, ANTONIO A 625.6 STRESS INCONTINENCE FEMALE 06/17/2008 KEN DALY APRN 625.6 STRESS INCONTINENCE FEMALE 06/17/2008 LUIZ LEGER MD 625.6 STRESS INCONTINENCE FEMALE 06/17/2008 RAJKORIE COMMUTER TRAIN OPERATOR, ANTONIO A 625.6 STRESS INCONTINENCE FEMALE 06/17/2008 KEN DALY APRN 625.6 STRESS INCONTINENCE FEMALE 06/17/2008 JANETTOTTE COMMUTER TRAIN OPERATOR, ANTONIO A 625.6 STRESS INCONTINENCE FEMALE 06/17/2008 GINA COLIN DO 625.6 STRESS INCONTINENCE FEMALE 06/17/2008 KOREYE COMMUTER TRAIN OPERATOR, ANTONIO A 625.6 STRESS INCONTINENCE FEMALE 06/17/2008 625.6 STRESS INCONTINENCE FEMALE 06/17/2008 KELLEY ADAMS AIDAN A 625.6 STRESS INCONTINENCE FEMALE 06/17/2008 KOREYE COMMUTER TRAIN OPERATOR, ANTONIO A 625.6 STRESS INCONTINENCE FEMALE 06/17/2008 CHANDU GARDNER APRN N 625.6 STRESS INCONTINENCE FEMALE 07/06/2008 692.9 DERMATITIS CONTACT UNSPECIFIED 07/06/2008 692.9 DERMATITIS CONTACT UNSPECIFIED 07/06/2008 [employer] PARADA APRN 692.9 DERMATITIS CONTACT UNSPECIFIED 07/06/2008 KEN DALY APRN 692.9 DERMATITIS CONTACT UNSPECIFIED 07/06/2008 692.9 DERMATITIS CONTACT UNSPECIFIED 07/06/2008 RAJOTTE COMMUTER TRAIN OPERATOR, ANTONIO A 692.9 DERMATITIS CONTACT UNSPECIFIED 07/06/2008 RAJOTTE COMMUTER TRAIN OPERATOR, ANTONIO A 692.9 DERMATITIS CONTACT UNSPECIFIED 07/06/2008 RAJOTTE COMMUTER TRAIN OPERATOR, ANTONIO A 692.9 DERMATITIS CONTACT UNSPECIFIED 07/06/2008 RAJOTTE COMMUTER TRAIN OPERATOR, ANTONIO A 692.9 DERMATITIS CONTACT UNSPECIFIED 07/06/2008 RAJOTTE COMMUTER TRAIN OPERATOR, ANTONIO A 692.9 DERMATITIS CONTACT UNSPECIFIED 07/06/2008 RAJOTTE COMMUTER TRAIN OPERATOR, ANTONIO A 692.9 DERMATITIS CONTACT UNSPECIFIED 07/06/2008 KEN DALY APRN 692.9 DERMATITIS CONTACT UNSPECIFIED 07/06/2008 LUIZ LEGER MD 692.9 DERMATITIS CONTACT UNSPECIFIED 07/06/2008 RAJOTTE COMMUTER TRAIN OPERATOR, ANTONIO A 692.9 DERMATITIS CONTACT UNSPECIFIED 07/06/2008 KEN DALY APRN 692.9 DERMATITIS CONTACT UNSPECIFIED 07/06/2008 RAJOTTE COMMUTER TRAIN OPERATOR, ANTONIO A 692.9 DERMATITIS CONTACT UNSPECIFIED 07/06/2008 GINA COLIN DO 692.9 DERMATITIS CONTACT UNSPECIFIED 07/06/2008 RAJOTTE COMMUTER TRAIN OPERATOR, ANTONIO A 692.9 DERMATITIS CONTACT UNSPECIFIED 07/06/2008 692.9 DERMATITIS CONTACT UNSPECIFIED 07/06/2008 KELLEY COMMUTER TRAIN OPERATOR, AIDAN A 692.9 DERMATITIS CONTACT UNSPECIFIED 07/06/2008 RAJOTTE COMMUTER TRAIN OPERATOR, ANTONIO A 692.9 DERMATITIS CONTACT UNSPECIFIED 07/06/2008 CHANDU AGRDNER APRN 692.9 DERMATITIS CONTACT UNSPECIFIED 06/29/2009 465.9 UPPER RESPIRATORY INFECTION 06/29/2009 530.81 GERD 06/29/2009 465.9 UPPER RESPIRATORY INFECTION 06/29/2009 530.81 GERD 06/29/2009 [employer] PARADA APRN R 465.9 UPPER RESPIRATORY INFECTION 06/29/2009 [employer] PARADA APRN 530.81 GERD 06/29/2009 KEN DALY APRN 465.9 UPPER RESPIRATORY INFECTION 06/29/2009 KEN DALY APRN 530.81 GERD 06/29/2009 465.9 UPPER RESPIRATORY INFECTION 06/29/2009 530.81 GERD 06/29/2009 RAJOTTE COMMUTER TRAIN OPERATOR, ANTONIO A 465.9 UPPER RESPIRATORY INFECTION 06/29/2009 RAJOTTE COMMUTER TRAIN OPERATOR, ANTONIO A 530.81 GERD 06/29/2009 RAJOTTE COMMUTER TRAIN OPERATOR, ANTONIO A 465.9 UPPER RESPIRATORY INFECTION 06/29/2009 RAJOTTE COMMUTER TRAIN OPERATOR, ANTONIO A 530.81 GERD 06/29/2009 RAJOTTE COMMUTER TRAIN OPERATOR, ANTONIO A 465.9 UPPER RESPIRATORY INFECTION 06/29/2009 RAJOTTE COMMUTER TRAIN OPERATOR, ANTONIO A 530.81 GERD 06/29/2009 RAJOTTE COMMUTER TRAIN OPERATOR, ANTONIO A 465.9 UPPER RESPIRATORY INFECTION 06/29/2009 RAJOTTE COMMUTER TRAIN OPERATOR, ANTONIO A 530.81 GERD 06/29/2009 RAJOTTE COMMUTER TRAIN OPERATOR, ANTONIO A 465.9 UPPER RESPIRATORY INFECTION 06/29/2009 RAJOTTE COMMUTER TRAIN OPERATOR, ANTONIO A 530.81 GERD 06/29/2009 RAJOTTE COMMUTER TRAIN OPERATOR, ANTONIO A 465.9 UPPER RESPIRATORY INFECTION 06/29/2009 RAJOTTE COMMUTER TRAIN OPERATOR, ANTONIO A 530.81 GERD 06/29/2009 KEN DALY APRN 465.9 UPPER RESPIRATORY INFECTION 06/29/2009 KEN DALY APRN T 530.81 GERD 06/29/2009 ARSEN MARI, LUIZ 465.9 UPPER RESPIRATORY INFECTION 06/29/2009 LUIZ LEGER MD 530.81 GERD 06/29/2009 RAJOTTE COMMUTER TRAIN OPERATOR, ANTONIO A 465.9 UPPER RESPIRATORY INFECTION 06/29/2009 RAJOTTE COMMUTER TRAIN OPERATOR, ANTONIO A 530.81 GERD 06/29/2009 KEN DALY APRN 465.9 UPPER RESPIRATORY INFECTION 06/29/2009 KEN DALY APRN 530.81 GERD 06/29/2009 RAJOTTE COMMUTER TRAIN OPERATOR, ANTONIO A 465.9 UPPER RESPIRATORY INFECTION 06/29/2009 RAJOTTE COMMUTER TRAIN OPERATOR, ANTONIO A 530.81 GERD 06/29/2009 COLIN DO, GINA K 465.9 UPPER RESPIRATORY INFECTION 06/29/2009 COLIN DO, GINA K 530.81 GERD 06/29/2009 RAJOTTE COMMUTER TRAIN OPERATOR, ANTONIO A 465.9 UPPER RESPIRATORY INFECTION 06/29/2009 RAJOTTE COMMUTER TRAIN OPERATOR, ANTONIO A 530.81 GERD 06/29/2009 465.9 UPPER RESPIRATORY INFECTION 06/29/2009 530.81 GERD 06/29/2009 KELLEY COMMUTER TRAIN OPERATOR, AIDAN A 465.9 UPPER RESPIRATORY INFECTION 06/29/2009 KELLEY COMMUTER TRAIN OPERATOR, AIDAN A 530.81 GERD 06/29/2009 RAJOTTE COMMUTER TRAIN OPERATOR, ANTONIO A 465.9 UPPER RESPIRATORY INFECTION 06/29/2009 RAJOTTE COMMUTER TRAIN OPERATOR, ANTONIO A 530.81 GERD 06/29/2009 HARDIN CASHERO COMMUTER TRAIN OPERATOR, CHANDU N 465.9 UPPER RESPIRATORY INFECTION 06/29/2009 HARDIN HUSAMERO COMMUTER TRAIN OPERATOR, CHANDU N 530.81 GERD 08/25/2009 786.2 COUGH 08/25/2009 786.2 COUGH 08/25/2009 NATO PARADA APRN R 786.2 COUGH 08/25/2009 KEN DALY APRN 786.2 COUGH 08/25/2009 786.2 COUGH 08/25/2009 RAJOTTE COMMUTER TRAIN OPERATOR, ANTONIO A 786.2 COUGH 08/25/2009 RAJOTTE COMMUTER TRAIN OPERATOR, ANTONIO A 786.2 COUGH 08/25/2009 RAJOTTE COMMUTER TRAIN OPERATOR, ANTONIO A 786.2 COUGH 08/25/2009 RAJOTTE COMMUTER TRAIN OPERATOR, ANTONIO A 786.2 COUGH 08/25/2009 RAJOTTE COMMUTER TRAIN OPERATOR, ANTONIO A 786.2 COUGH 08/25/2009 RAJOTTE COMMUTER TRAIN OPERATOR, ANTONIO A 786.2 COUGH 08/25/2009 KEN DALY APRN 786.2 COUGH 08/25/2009 LUIZ LEGER MD 786.2 COUGH 08/25/2009 RAJOTTE COMMUTER TRAIN OPERATOR, ANTONIO A 786.2 COUGH 08/25/2009 KEN DALY APRN 786.2 COUGH 08/25/2009 RAJOTTE COMMUTER TRAIN OPERATOR, ANTONIO A 786.2 COUGH 08/25/2009 GINA COLIN DO 786.2 COUGH 08/25/2009 RAJOTTE COMMUTER TRAIN OPERATOR, ANTONIO A 786.2 COUGH 08/25/2009 786.2 COUGH 08/25/2009 KELLEY COMMUTER TRAIN OPERATOR, AIDAN A 786.2 COUGH 08/25/2009 RAJOTTE COMMUTER TRAIN OPERATOR, ANTONIO A 786.2 COUGH 08/25/2009 HARDINSACHIN WEINERERO COMMUTER TRAIN OPERATOR, CHANDU N 786.2 COUGH 11/10/2009 782.3 EDEMA 11/10/2009 786.05 SHORTNESS OF BREATH 11/10/2009 782.3 EDEMA 11/10/2009 786.05 SHORTNESS OF BREATH 11/10/2009 NATO PARADA APRN 782.3 EDEMA 11/10/2009 PARADA COMMUTER TRAIN OPERATOR, NATO R 786.05 SHORTNESS OF BREATH 11/10/2009 KEN DALY APRN 782.3 EDEMA 11/10/2009 KEN DALY APRN 786.05 SHORTNESS OF BREATH 11/10/2009 782.3 EDEMA 11/10/2009 786.05 SHORTNESS OF BREATH 11/10/2009 RAJOTTE COMMUTER TRAIN OPERATOR, ANTONIO A 782.3 EDEMA 11/10/2009 RAJOTTE COMMUTER TRAIN OPERATOR, ANTONIO A 786.05 SHORTNESS OF BREATH 11/10/2009 RAJOTTE COMMUTER TRAIN OPERATOR, ANTONIO A 782.3 EDEMA 11/10/2009 RAJOTTE COMMUTER TRAIN OPERATOR, ANTONIO A 786.05 SHORTNESS OF BREATH 11/10/2009 RAJOTTE COMMUTER TRAIN OPERATOR, ANTONIO A 782.3 EDEMA 11/10/2009 RAJOTTE COMMUTER TRAIN OPERATOR, ANTONIO A 786.05 SHORTNESS OF BREATH 11/10/2009 RAJOTTE COMMUTER TRAIN OPERATOR, ANTONIO A 782.3 EDEMA 11/10/2009 RAJOTTE COMMUTER TRAIN OPERATOR, ANTONIO A 786.05 SHORTNESS OF BREATH 11/10/2009 RAJOTTE COMMUTER TRAIN OPERATOR, ANTONIO A 782.3 EDEMA 11/10/2009 RAJOTTE COMMUTER TRAIN OPERATOR, ANTONIO A 786.05 SHORTNESS OF BREATH 11/10/2009 RAJOTTE COMMUTER TRAIN OPERATOR, ANTONIO A 782.3 EDEMA 11/10/2009 RAJOTTE COMMUTER TRAIN OPERATOR, ANTONIO A 786.05 SHORTNESS OF BREATH 11/10/2009 KEN DALY APRN 782.3 EDEMA 11/10/2009 KEN DALY APRN 786.05 SHORTNESS OF BREATH 11/10/2009 LUIZ LEGER MD 782.3 EDEMA 11/10/2009 LUIZ LEGER MD 786.05 SHORTNESS OF BREATH 11/10/2009 RAJOTTE COMMUTER TRAIN OPERATOR, ANTONIO A 782.3 EDEMA 11/10/2009 RAJOTTE COMMUTER TRAIN OPERATOR, ANTONIO A 786.05 SHORTNESS OF BREATH 11/10/2009 KEN DALY APRN 782.3 EDEMA 11/10/2009 KEN DALY APRN 786.05 SHORTNESS OF BREATH 11/10/2009 RAJOTTE COMMUTER TRAIN OPERATOR, ANTONIO A 782.3 EDEMA 11/10/2009 RAJOTTE COMMUTER TRAIN OPERATOR, ANTONIO A 786.05 SHORTNESS OF BREATH 11/10/2009 COLIN DO, GINA K 782.3 EDEMA 11/10/2009 COLIN DO, GINA K 786.05 SHORTNESS OF BREATH 11/10/2009 RAJOTTE COMMUTER TRAIN OPERATOR, ANTONIO A 782.3 EDEMA 11/10/2009 RAJOTTE COMMUTER TRAIN OPERATOR, ANTONIO A 786.05 SHORTNESS OF BREATH 11/10/2009 782.3 EDEMA 11/10/2009 786.05 SHORTNESS OF BREATH 11/10/2009 KELLEY COMMUTER TRAIN OPERATOR, AIDAN A 782.3 EDEMA 11/10/2009 KELLEY COMMUTER TRAIN OPERATOR, AIDAN A 786.05 SHORTNESS OF BREATH 11/10/2009 RAJOTTE COMMUTER TRAIN OPERATOR, ANTONIO A 782.3 EDEMA 11/10/2009 RAJOTTE COMMUTER TRAIN OPERATOR, ANTONIO A 786.05 SHORTNESS OF BREATH 11/10/2009 HARDIN CASHERO COMMUTER TRAIN OPERATOR, CHANDU N 782.3 EDEMA 11/10/2009 HARDIN CASHERO COMMUTER TRAIN OPERATOR, CHANDU N 786.05 SHORTNESS OF BREATH 01/03/2010 599.0 URINARY TRACT INFECTION, SITE NOT SPECIFIED 01/03/2010 599.0 URINARY TRACT INFECTION, SITE NOT SPECIFIED 01/03/2010 NATO PARADA APRN 599.0 URINARY TRACT INFECTION, SITE NOT SPECIFIED 01/03/2010 KEN DALY APRN 599.0 URINARY TRACT INFECTION, SITE NOT SPECIFIED 01/03/2010 599.0 URINARY TRACT INFECTION, SITE NOT SPECIFIED 01/03/2010 RAJOTTE COMMUTER TRAIN OPERATOR, ANTONIO A 599.0 URINARY TRACT INFECTION, SITE NOT SPECIFIED 01/03/2010 RAJOTTE COMMUTER TRAIN OPERATOR, ANTONIO A 599.0 URINARY TRACT INFECTION, SITE NOT SPECIFIED 01/03/2010 RAJOTTE COMMUTER TRAIN OPERATOR, ANTONIO A 599.0 URINARY TRACT INFECTION, SITE NOT SPECIFIED 01/03/2010 RAJOTTE COMMUTER TRAIN OPERATOR, ANTONIO A 599.0 URINARY TRACT INFECTION, SITE NOT SPECIFIED 01/03/2010 RAJOTTE COMMUTER TRAIN OPERATOR, ANTONIO A 599.0 URINARY TRACT INFECTION, SITE NOT SPECIFIED 01/03/2010 RAJOTTE COMMUTER TRAIN OPERATOR, ANTONIO A 599.0 URINARY TRACT INFECTION, SITE NOT SPECIFIED 01/03/2010 KEN DALY APRN 599.0 URINARY TRACT INFECTION, SITE NOT SPECIFIED 01/03/2010 LUIZ LEGER MD 599.0 URINARY TRACT INFECTION, SITE NOT SPECIFIED 01/03/2010 ANTHONY COMMUTER TRAIN OPERATOR, ANTONIO A 599.0 URINARY TRACT INFECTION, SITE NOT SPECIFIED 01/03/2010 MALIKA ADAMS KEN Cortez 599.0 URINARY TRACT INFECTION, SITE NOT SPECIFIED 01/03/2010 JANETTOTTE COMMUTER TRAIN OPERATOR, ANTONIO A 599.0 URINARY TRACT INFECTION, SITE NOT SPECIFIED 01/03/2010 GINA COLIN DO K 599.0 URINARY TRACT INFECTION, SITE NOT SPECIFIED 01/03/2010 RAJOTTE COMMUTER TRAIN OPERATOR, ANTONIO A 599.0 URINARY TRACT INFECTION, SITE NOT SPECIFIED 01/03/2010 599.0 URINARY TRACT INFECTION, SITE NOT SPECIFIED 01/03/2010 KELLEY APRN, AIDAN A 599.0 URINARY TRACT INFECTION, SITE NOT SPECIFIED 01/03/2010 JANETTOTTE COMMUTER TRAIN OPERATOR, ANTONIO A 599.0 URINARY TRACT INFECTION, SITE NOT SPECIFIED 01/03/2010 LASHAWN ALVAREZ BRYANCHANDU Capri 599.0 URINARY TRACT INFECTION, SITE NOT SPECIFIED 01/27/2010 Ot 272.4 01/27/2010 Ot 401.9 01/27/2010 Ot 496 01/27/2010 Ot 780.2 01/27/2010 Ot 785.1 01/27/2010 Ot V53.31 01/27/2010 Ot V58.66 01/27/2010 Ot V58.69 02/04/2010 Ot 250.00 02/04/2010 Ot 327.23 02/04/2010 Ot 401.9 03/02/2011 Ot 272.4 HYPERLIPIDEMIA NEC/NOS 03/02/2011 Ot 278.01 MORBID OBESITY 03/02/2011 Ot 327.23 OBSTRUCTIVE SLEEP APNEA (ADULT) (PEDIATR 03/02/2011 Ot 401.9 HYPERTENSION NOS 03/02/2011 Ot 414.01 CORONARY ATHEROSCLEROSIS OF [place] CORON 03/02/2011 Ot 433.10 CAROTID ARTERY OCCLUSION W O CEREBRAL IN 03/02/2011 Ot 496 CHR AIRWAY OBSTRUCT NEC 03/02/2011 Ot V45.01 CARDIAC PACEMAKER IN SITU 03/02/2011 Ot V85.42 BODY MASS INDEX 45.0-49.9, ADULT 06/22/2011 Ot 250.00 DIAB CRISTIANO WO COMPL, TYPE II OR UNSPEC TY 06/22/2011 Ot 272.4 HYPERLIPIDEMIA NEC/NOS 06/22/2011 Ot 414.00 CORON ATHEROSCLER NOS TYPE VESSEL, NATIV 06/22/2011 Ot 434.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 NOS W CEREBRAL IN 06/22/2011 Ot V12.51 HX-VENOUS THROMBOSIS EMBOLISM 06/22/2011 Ot V45.01 CARDIAC PACEMAKER IN SITU 06/22/2011 Ot V45.81 AORTOCORONARY BYPASS 06/22/2011 Ot V58.61 ANTICOAGULANTS,LT,CURRENT USE 06/22/2011 Ot V58.69 OTH MED,LT, CURRENT USE 07/13/2011 Ot 272.4 HYPERLIPIDEMIA NEC/NOS 07/13/2011 Ot 401.9 HYPERTENSION NOS 07/13/2011 Ot 414.01 CORONARY ATHEROSCLEROSIS OF [place] CORON 07/13/2011 Ot 427.81 SINOATRIAL NODE DYSFUNCT 07/13/2011 Ot 496 CHR AIRWAY OBSTRUCT NEC 07/13/2011 Ot 786.50 CHEST PAIN NOS 07/13/2011 Ot V45.01 CARDIAC PACEMAKER IN SITU 07/13/2011 Ot V45.82 PERCUTANEOUS TRANSLUM CORON ANGIOPLASTY 07/13/2011 Ot V58.66 LONG-TERM ( CURRENT) USE OF ASPIRIN 07/13/2011 Ot V58.69 OTH MED,LT, CURRENT USE 08/21/2011 461.9 SINUSITIS ACUTE 08/21/2011 461.9 SINUSITIS ACUTE 08/21/2011 NATO PARADA APRN 461.9 SINUSITIS ACUTE 08/21/2011 KEN DALY APRN 461.9 SINUSITIS ACUTE 08/21/2011 461.9 SINUSITIS ACUTE 08/21/2011 ANTHONY ADAMS, ANTONIO A 461.9 SINUSITIS ACUTE 08/21/2011 ANTHONY ADAMS, ANTONIO A 461.9 SINUSITIS ACUTE 08/21/2011 ANTHONY ADAMS, ANTONIO A 461.9 SINUSITIS ACUTE 08/21/2011 ANTHONY ADAMS, ANTONIO A 461.9 SINUSITIS ACUTE 08/21/2011 ANTHONY ADAMS, ANTONIO A 461.9 SINUSITIS ACUTE 08/21/2011 ANTHONY ADAMS, ANTONIO A 461.9 SINUSITIS ACUTE 08/21/2011 KEN DALY APRN 461.9 SINUSITIS ACUTE 08/21/2011 LUIZ LEGER MD 461.9 SINUSITIS ACUTE 08/21/2011 ANTHONY ADAMS, ANTONIO A 461.9 SINUSITIS ACUTE 08/21/2011 KEN DALY APRN 461.9 SINUSITIS ACUTE 08/21/2011 RAJOTTE COMMUTER TRAIN OPERATOR, ANTONIO A 461.9 SINUSITIS ACUTE 08/21/2011 GINA COLIN DO K 461.9 SINUSITIS ACUTE 08/21/2011 RAJOTTE COMMUTER TRAIN OPERATOR, ANTONIO A 461.9 SINUSITIS ACUTE 08/21/2011 461.9 SINUSITIS ACUTE 08/21/2011 KELLEY ADAMS AIDAN A 461.9 SINUSITIS ACUTE 08/21/2011 RAJOTTE COMMUTER TRAIN OPERATOR, ANTONIO A 461.9 SINUSITIS ACUTE 08/21/2011 LASHAWN ALVAREZ COMMUTER TRAIN OPERATOR, CHANDU N 461.9 SINUSITIS ACUTE 10/25/2011 599.0 URINARY TRACT INFECTION 10/25/2011 599.0 URINARY TRACT INFECTION 10/25/2011 NATO PARADA APRN 599.0 URINARY TRACT INFECTION 10/25/2011 KEN DALY APRN 599.0 URINARY TRACT INFECTION 10/25/2011 599.0 URINARY TRACT INFECTION 10/25/2011 RAJOTTE COMMUTER TRAIN OPERATOR, ANTONIO A 599.0 URINARY TRACT INFECTION 10/25/2011 RAJOTTE COMMUTER TRAIN OPERATOR, ANTONIO A 599.0 URINARY TRACT INFECTION 10/25/2011 RAJOTTE COMMUTER TRAIN OPERATOR, ANTONIO A 599.0 URINARY TRACT INFECTION 10/25/2011 RAJOTTE COMMUTER TRAIN OPERATOR, ANTONIO A 599.0 URINARY TRACT INFECTION 10/25/2011 RAJOTTE COMMUTER TRAIN OPERATOR, ANTONIO A 599.0 URINARY TRACT INFECTION 10/25/2011 RAJOTTE COMMUTER TRAIN OPERATOR, ANTONIO A 599.0 URINARY TRACT INFECTION 10/25/2011 KEN DALY APRN 599.0 URINARY TRACT INFECTION 10/25/2011 LUIZ LEGER MD 599.0 URINARY TRACT INFECTION 10/25/2011 RAJOTTE COMMUTER TRAIN OPERATOR, ANTONIO A 599.0 URINARY TRACT INFECTION 10/25/2011 KEN DALY APRN 599.0 URINARY TRACT INFECTION 10/25/2011 RAJOTTE COMMUTER TRAIN OPERATOR, ANTONIO A 599.0 URINARY TRACT INFECTION 10/25/2011 GINA COLIN DO K 599.0 URINARY TRACT INFECTION 10/25/2011 RAJOTTE COMMUTER TRAIN OPERATOR, ANTONIO A 599.0 URINARY TRACT INFECTION 10/25/2011 599.0 URINARY TRACT INFECTION 10/25/2011 KELLEY COMMUTER TRAIN OPERATOR, AIDAN A 599.0 URINARY TRACT INFECTION 10/25/2011 ANTHONY BRANDTN, ANTONIO A 599.0 URINARY TRACT INFECTION 10/25/2011 CHANDU GARDNER APRN N 599.0 URINARY TRACT INFECTION 02/16/2012 V04.81 FLU DX (3 YRS AND ABOVE, IM) 02/16/2012 V04.81 FLU DX (3 YRS AND ABOVE, IM) 02/16/2012 NATO PARADA APRN V04.81 FLU DX (3 YRS AND ABOVE, IM) 02/16/2012 KEN DALY APRN V04.81 FLU DX (3 YRS AND ABOVE, IM) 02/16/2012 V04.81 FLU DX (3 YRS AND ABOVE, IM) 02/16/2012 ANTHONY COMMUTER TRAIN OPERATOR, ANTONIO A V04.81 FLU DX (3 YRS AND ABOVE, IM) 02/16/2012 KOREYE COMMUTER TRAIN OPERATOR, ANTONIO A V04.81 FLU DX (3 YRS AND ABOVE, IM) 02/16/2012 KOREYE COMMUTER TRAIN OPERATOR, ANTONIO A V04.81 FLU DX (3 YRS AND ABOVE, IM) 02/16/2012 KOREYE COMMUTER TRAIN OPERATOR, ANTONIO A V04.81 FLU DX (3 YRS AND ABOVE, IM) 02/16/2012 KOREYE COMMUTER TRAIN OPERATOR, ANTONIO A V04.81 FLU DX (3 YRS AND ABOVE, IM) 02/16/2012 RAJKORIE COMMUTER TRAIN OPERATOR, ANTONIO A V04.81 FLU DX (3 YRS AND ABOVE, IM) 02/16/2012 KEN DALY APRN V04.81 FLU DX (3 YRS AND ABOVE, IM) 02/16/2012 LUIZ LEGER MD V04.81 FLU DX (3 YRS AND ABOVE, IM) 02/16/2012 ANTHONY ADAMS, ANTONIO A V04.81 FLU DX (3 YRS AND ABOVE, IM) 02/16/2012 KEN DALY APRN V04.81 FLU DX (3 YRS AND ABOVE, IM) 02/16/2012 ANTHONY COMMUTER TRAIN OPERATOR, ANTONIO A V04.81 FLU DX (3 YRS AND ABOVE, IM) 02/16/2012 GINA COLIN DO V04.81 FLU DX (3 YRS AND ABOVE, IM) 02/16/2012 RAJOTTE COMMUTER TRAIN OPERATOR, ANTONIO A V04.81 FLU DX (3 YRS AND ABOVE, IM) 02/16/2012 V04.81 FLU DX (3 YRS AND ABOVE, IM) 02/16/2012 KELLEY COMMUTER TRAIN OPERATOR, AIDAN A V04.81 FLU DX (3 YRS AND ABOVE, IM) 02/16/2012 RAJOTTE COMMUTER TRAIN OPERATOR, ANTONIO A V04.81 FLU DX (3 YRS AND ABOVE, IM) 02/16/2012 LASHAWN ALVAREZ BRYAN, CHANDU N V04.81 FLU DX (3 YRS AND ABOVE, IM) 04/04/2012 461.9 SINUSITIS ACUTE 04/04/2012 461.9 SINUSITIS ACUTE 04/04/2012 NATO PARADA APRN 461.9 SINUSITIS ACUTE 04/04/2012 KEN DALY APRN 461.9 SINUSITIS ACUTE 04/04/2012 461.9 SINUSITIS ACUTE 04/04/2012 RAJOTTE COMMUTER TRAIN OPERATOR, ANTONIO A 461.9 SINUSITIS ACUTE 04/04/2012 RAJOTTE COMMUTER TRAIN OPERATOR, ANTONIO A 461.9 SINUSITIS ACUTE 04/04/2012 RAJOTTE COMMUTER TRAIN OPERATOR, ANTONIO A 461.9 SINUSITIS ACUTE 04/04/2012 RAJOTTE COMMUTER TRAIN OPERATOR, ANTONIO A 461.9 SINUSITIS ACUTE 04/04/2012 RAJOTTE COMMUTER TRAIN OPERATOR, ANTONIO A 461.9 SINUSITIS ACUTE 04/04/2012 RAJOTTE COMMUTER TRAIN OPERATOR, ANTONIO A 461.9 SINUSITIS ACUTE 04/04/2012 KEN DALY APRN 461.9 SINUSITIS ACUTE 04/04/2012 LUIZ LEGER MD 461.9 SINUSITIS ACUTE 04/04/2012 RAJOTTE COMMUTER TRAIN OPERATOR, ANTONIO A 461.9 SINUSITIS ACUTE 04/04/2012 KEN DALY APRN 461.9 SINUSITIS ACUTE 04/04/2012 RAJOTTE COMMUTER TRAIN OPERATOR, ANTONIO A 461.9 SINUSITIS ACUTE 04/04/2012 GINA COLIN DO 461.9 SINUSITIS ACUTE 04/04/2012 RAJOTTE COMMUTER TRAIN OPERATOR, ANTONIO A 461.9 SINUSITIS ACUTE 04/04/2012 461.9 SINUSITIS ACUTE 04/04/2012 KELLEY ADAMS AIDAN A 461.9 SINUSITIS ACUTE 04/04/2012 RAJOTTE COMMUTER TRAIN OPERATOR, ANTONIO A 461.9 SINUSITIS ACUTE 04/04/2012 LASHAWN ALVAREZ COMMUTER TRAIN OPERATOR, CHANDU N 461.9 SINUSITIS ACUTE 04/19/2012 454.9 VARICOSE VEINS ASYMPTOMATIC 04/19/2012 465.9 UPPER RESPIRATORY INFECTION 04/19/2012 NATO PARADA APRN R 454.9 VARICOSE VEINS ASYMPTOMATIC 04/19/2012 CORAL PARADA APRNIA R 465.9 UPPER RESPIRATORY INFECTION 04/19/2012 KEN DALY APRN T 454.9 VARICOSE VEINS ASYMPTOMATIC 04/19/2012 KEN DALY APRN T 465.9 UPPER RESPIRATORY INFECTION 04/19/2012 454.9 VARICOSE VEINS ASYMPTOMATIC 04/19/2012 465.9 UPPER RESPIRATORY INFECTION 04/19/2012 RAJOTTE COMMUTER TRAIN OPERATOR, ANTONIO A 454.9 VARICOSE VEINS ASYMPTOMATIC 04/19/2012 RAJOTTE COMMUTER TRAIN OPERATOR, ANTONIO A 465.9 UPPER RESPIRATORY INFECTION 04/19/2012 RAJOTTE COMMUTER TRAIN OPERATOR, ANTONIO A 454.9 VARICOSE VEINS ASYMPTOMATIC 04/19/2012 RAJOTTE COMMUTER TRAIN OPERATOR, ANTONIO A 465.9 UPPER RESPIRATORY INFECTION 04/19/2012 RAJOTTE COMMUTER TRAIN OPERATOR, ANTONIO A 454.9 VARICOSE VEINS ASYMPTOMATIC 04/19/2012 RAJOTTE COMMUTER TRAIN OPERATOR, ANTONIO A 465.9 UPPER RESPIRATORY INFECTION 04/19/2012 RAJOTTE COMMUTER TRAIN OPERATOR, ANTONIO A 454.9 VARICOSE VEINS ASYMPTOMATIC 04/19/2012 RAJOTTE COMMUTER TRAIN OPERATOR, ANTONIO A 465.9 UPPER RESPIRATORY INFECTION 04/19/2012 RAJOTTE COMMUTER TRAIN OPERATOR, ANTONIO A 454.9 VARICOSE VEINS ASYMPTOMATIC 04/19/2012 RAJOTTE COMMUTER TRAIN OPERATOR, ANTONIO A 465.9 UPPER RESPIRATORY INFECTION 04/19/2012 RAJOTTE COMMUTER TRAIN OPERATOR, ANTONIO A 454.9 VARICOSE VEINS ASYMPTOMATIC 04/19/2012 RAJOTTE COMMUTER TRAIN OPERATOR, ANTONIO A 465.9 UPPER RESPIRATORY INFECTION 04/19/2012 KEN DALY APRN T 454.9 VARICOSE VEINS ASYMPTOMATIC 04/19/2012 KEN DALY APRN T 465.9 UPPER RESPIRATORY INFECTION 04/19/2012 LUIZ LEGER MD 454.9 VARICOSE VEINS ASYMPTOMATIC 04/19/2012 LUIZ LEGER MD 465.9 UPPER RESPIRATORY INFECTION 04/19/2012 RAJOTTE COMMUTER TRAIN OPERATOR, ANTONIO A 454.9 VARICOSE VEINS ASYMPTOMATIC 04/19/2012 RAJOTTE COMMUTER TRAIN OPERATOR, ANTONIO A 465.9 UPPER RESPIRATORY INFECTION 04/19/2012 KEN DALY APRN T 454.9 VARICOSE VEINS ASYMPTOMATIC 04/19/2012 KEN DALY APRN T 465.9 UPPER RESPIRATORY INFECTION 04/19/2012 RAJOTTE COMMUTER TRAIN OPERATOR, ANTONIO A 454.9 VARICOSE VEINS ASYMPTOMATIC 04/19/2012 RAJOTTE COMMUTER TRAIN OPERATOR, ANTONIO A 465.9 UPPER RESPIRATORY INFECTION 04/19/2012 COLIN DO, GINA K 454.9 VARICOSE VEINS ASYMPTOMATIC 04/19/2012 COLIN DO, GINA K 465.9 UPPER RESPIRATORY INFECTION 04/19/2012 RAJOTTE COMMUTER TRAIN OPERATOR, ANTONIO A 454.9 VARICOSE VEINS ASYMPTOMATIC 04/19/2012 RAJOTTE COMMUTER TRAIN OPERATOR, ANTONIO A 465.9 UPPER RESPIRATORY INFECTION 04/19/2012 KELLEY COMMUTER TRAIN OPERATOR, AIDAN A 454.9 VARICOSE VEINS ASYMPTOMATIC 04/19/2012 KELLEY COMMUTER TRAIN OPERATOR, AIDAN A 465.9 UPPER RESPIRATORY INFECTION 04/19/2012 RAJOTTE COMMUTER TRAIN OPERATOR, ANTONIO A 454.9 VARICOSE VEINS ASYMPTOMATIC 04/19/2012 RAJOTTE COMMUTER TRAIN OPERATOR, ANTONIO A 465.9 UPPER RESPIRATORY INFECTION 04/19/2012 HARDIN CASHERO COMMUTER TRAIN OPERATOR, CHANDU N 454.9 VARICOSE VEINS ASYMPTOMATIC 04/19/2012 HARDIN CASHERO COMMUTER TRAIN OPERATOR, CHANDU N 465.9 UPPER RESPIRATORY INFECTION 05/10/2012 NATO PARADA APRN 553.20 VENTRAL HERNIA 05/10/2012 KEN DALY APRN 553.20 VENTRAL HERNIA 05/10/2012 553.20 VENTRAL HERNIA 05/10/2012 RAJOTTE COMMUTER TRAIN OPERATOR, ANTONIO A 553.20 VENTRAL HERNIA 05/10/2012 RAJOTTE COMMUTER TRAIN OPERATOR, ANTONIO A 553.20 VENTRAL HERNIA 05/10/2012 RAJOTTE COMMUTER TRAIN OPERATOR, ANTONIO A 553.20 VENTRAL HERNIA 05/10/2012 RAJOTTE COMMUTER TRAIN OPERATOR, ANTONIO A 553.20 VENTRAL HERNIA 05/10/2012 RAJOTTE COMMUTER TRAIN OPERATOR, ANTONIO A 553.20 VENTRAL HERNIA 05/10/2012 RAJOTTE COMMUTER TRAIN OPERATOR, ANTONIO A 553.20 VENTRAL HERNIA 05/10/2012 KEN DALY APRN 553.20 VENTRAL HERNIA 05/10/2012 ARSEN MARI, LUIZ 553.20 VENTRAL HERNIA 05/10/2012 RAJOTTE COMMUTER TRAIN OPERATOR, ANTONIO A 553.20 VENTRAL HERNIA 05/10/2012 MALIKA COMMUTER TRAIN OPERATORKEN Farooq T 553.20 VENTRAL HERNIA 05/10/2012 RAJOTTE COMMUTER TRAIN OPERATOR, ANTONIO A 553.20 VENTRAL HERNIA 05/10/2012 COLIN GINA MARION K 553.20 VENTRAL HERNIA 05/10/2012 RAJOTTE COMMUTER TRAIN OPERATOR, ANTONIO A 553.20 VENTRAL HERNIA 05/10/2012 KELLEY COMMUTER TRAIN OPERATOR, AIDAN A 553.20 VENTRAL HERNIA 05/10/2012 RAJOTTE COMMUTER TRAIN OPERATOR, ANTONIO A 553.20 VENTRAL HERNIA 05/10/2012 LASHAWN ALVAREZ COMMUTER TRAIN OPERATOR, CHANDU N 553.20 VENTRAL HERNIA 05/28/2012 KEN DALY APRN 278.00 OBESITY 05/28/2012 KEN DALY APRN T 553.9 HERNIA UNSPECIFIED SITE 05/28/2012 278.00 OBESITY 05/28/2012 553.9 HERNIA UNSPECIFIED SITE 05/28/2012 RAJOTTE COMMUTER TRAIN OPERATOR, ANTONIO A 278.00 OBESITY 05/28/2012 RAJOTTE COMMUTER TRAIN OPERATOR, ANTONIO A 553.9 HERNIA UNSPECIFIED SITE 05/28/2012 RAJOTTE COMMUTER TRAIN OPERATOR, ANTONIO A 278.00 OBESITY 05/28/2012 RAJOTTE COMMUTER TRAIN OPERATOR, ANTONIO A 553.9 HERNIA UNSPECIFIED SITE 05/28/2012 RAJOTTE COMMUTER TRAIN OPERATOR, ANTONIO A 278.00 OBESITY 05/28/2012 RAJOTTE COMMUTER TRAIN OPERATOR, ANTONIO A 553.9 HERNIA UNSPECIFIED SITE 05/28/2012 RAJOTTE COMMUTER TRAIN OPERATOR, ANTONIO A 278.00 OBESITY 05/28/2012 RAJOTTE COMMUTER TRAIN OPERATOR, ANTONIO A 553.9 HERNIA UNSPECIFIED SITE 05/28/2012 RAJOTTE COMMUTER TRAIN OPERATOR, ANTONIO A 278.00 OBESITY 05/28/2012 RAJOTTE COMMUTER TRAIN OPERATOR, ANTONIO A 553.9 HERNIA UNSPECIFIED SITE 05/28/2012 RAJOTTE COMMUTER TRAIN OPERATOR, ANTONIO A 278.00 OBESITY 05/28/2012 RAJOTTE COMMUTER TRAIN OPERATOR, ANTONIO A 553.9 HERNIA UNSPECIFIED SITE 05/28/2012 KEN DALY APRN 278.00 OBESITY 05/28/2012 KEN DALY APRN 553.9 HERNIA UNSPECIFIED SITE 05/28/2012 LUIZ LEGER MD 278.00 OBESITY 05/28/2012 LUIZ LEGER MD 553.9 HERNIA UNSPECIFIED SITE 05/28/2012 RAJOTTE COMMUTER TRAIN OPERATOR, ANTONIO A 278.00 OBESITY 05/28/2012 RAJOTTE COMMUTER TRAIN OPERATOR, ANTONIO A 553.9 HERNIA UNSPECIFIED SITE 05/28/2012 MALIKA ADAMS, KEN T 278.00 OBESITY 05/28/2012 KEN DALY APRN T 553.9 HERNIA UNSPECIFIED SITE 05/28/2012 RAJOTTE COMMUTER TRAIN OPERATOR, ANTONIO A 278.00 OBESITY 05/28/2012 RAJOTTE COMMUTER TRAIN OPERATOR, ANTONIO A 553.9 HERNIA UNSPECIFIED SITE 05/28/2012 COLIN DO, GINA K 278.00 OBESITY 05/28/2012 COLIN DO, GINA K 553.9 HERNIA UNSPECIFIED SITE 05/28/2012 RAJOTTE COMMUTER TRAIN OPERATOR, ANTONIO A 278.00 OBESITY 05/28/2012 RAJOTTE COMMUTER TRAIN OPERATOR, ANTONIO A 553.9 HERNIA UNSPECIFIED SITE 05/28/2012 KELLEY COMMUTER TRAIN OPERATOR, AIDAN A 278.00 OBESITY 05/28/2012 KELLEY COMMUTER TRAIN OPERATOR, AIDAN A 553.9 HERNIA UNSPECIFIED SITE 05/28/2012 RAJOTTE COMMUTER TRAIN OPERATOR, ANTONIO A 278.00 OBESITY 05/28/2012 RAJOTTE COMMUTER TRAIN OPERATOR, ANTONIO A 553.9 HERNIA UNSPECIFIED SITE 05/28/2012 HARDIN CASHERO COMMUTER TRAIN OPERATOR, CHANDU N 278.00 OBESITY 05/28/2012 HARDIN CASHERO COMMUTER TRAIN OPERATOR, CHANDU N 553.9 HERNIA UNSPECIFIED SITE 02/05/2013 RAJOTTE COMMUTER TRAIN OPERATOR, ANTONIO A 719.46 PAIN- KNEE 02/05/2013 RAJOTTE COMMUTER TRAIN OPERATOR, ANTONIO A 719.46 PAIN- KNEE 02/05/2013 RAJOTTE COMMUTER TRAIN OPERATOR, ANTONIO A 719.46 PAIN- KNEE 02/05/2013 RAJOTTE COMMUTER TRAIN OPERATOR, ANTONIO A 719.46 PAIN- KNEE 02/05/2013 RAJOTTE COMMUTER TRAIN OPERATOR, ANTONIO A 719.46 PAIN- KNEE 02/05/2013 RAJOTTE COMMUTER TRAIN OPERATOR, ANTONIO A 719.46 PAIN- KNEE 02/05/2013 KEN DALY APRN 719.46 PAIN- KNEE 02/05/2013 LUIZ LEGER MD 719.46 PAIN- KNEE 02/05/2013 RAJOTTE COMMUTER TRAIN OPERATOR, ANTONIO A 719.46 PAIN- KNEE 02/05/2013 KEN DALY APRN 719.46 PAIN- KNEE 02/05/2013 RAJOTTE COMMUTER TRAIN OPERATOR, ANTONIO A 719.46 PAIN- KNEE 02/05/2013 GINA COILN DO 719.46 PAIN- KNEE 02/05/2013 RAJOTTE COMMUTER TRAIN OPERATOR, ANTONIO A 719.46 PAIN- KNEE 02/05/2013 AIDAN BENSON APRN 719.46 PAIN- KNEE 02/05/2013 RAJOTTE COMMUTER TRAIN OPERATOR, ANTONIO A 719.46 PAIN- KNEE 02/05/2013 LASHAWN ALVAREZ BRYANCHANDU Capri 719.46 PAIN- KNEE 03/19/2013 ANGÉLICAMARIAELENA ROSENBERG Ot 719.46 JOINT PAIN-L/LEG 03/19/2013 MARIAELENA MAGUIRE Ot 959.7 LOWER LEG INJURY NOS 03/19/2013 MARIAELENA MAGUIRE Ot E000.0 CIVILIAN ACTIVITY DONE FOR INCOME OR PAY 03/19/2013 MARIAELENA MAGUIRE Ot E849.6 ACCIDENT IN PUBLIC BLDG 03/19/2013 MARIAELENA MAGUIRE Ot E927.0 OVEREXERTION FROM SUDDEN STRENUOUS MOVEM 03/19/2013 MARIAELENA MAGUIRE Ot V57.1 PHYSICAL THERAPY NEC 04/11/2013 RAJKORIE COMMUTER TRAIN OPERATOR, ANTONIO A 466.0 BRONCHITIS, ACUTE 04/11/2013 RAJOTTE COMMUTER TRAIN OPERATOR, ANTONIO A 466.0 BRONCHITIS, ACUTE 04/11/2013 RAJOTTE COMMUTER TRAIN OPERATOR, ANTONIO A 466.0 BRONCHITIS, ACUTE 04/11/2013 RAJOTTE COMMUTER TRAIN OPERATOR, ANTONIO A 466.0 BRONCHITIS, ACUTE 04/11/2013 KEN DALY APRN 466.0 BRONCHITIS, ACUTE 04/11/2013 ARSEN MARI, LUIZ 466.0 BRONCHITIS, ACUTE 04/11/2013 RAJOTTE COMMUTER TRAIN OPERATOR, ANTONIO A 466.0 BRONCHITIS, ACUTE 04/11/2013 KEN DALY APRN 466.0 BRONCHITIS, ACUTE 04/11/2013 RAJOTTE COMMUTER TRAIN OPERATOR, ANTONIO A 466.0 BRONCHITIS, ACUTE 04/11/2013 GINA COLIN DO 466.0 BRONCHITIS, ACUTE 04/11/2013 RAJOTTE COMMUTER TRAIN OPERATOR, ANTONIO A 466.0 BRONCHITIS, ACUTE 04/11/2013 AIDAN BENSON APRN A 466.0 BRONCHITIS, ACUTE 04/11/2013 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 APRN A 466.0 BRONCHITIS, ACUTE 04/11/2013 LASHAWN ALVAREZ BRYANCHANDU N 466.0 BRONCHITIS, ACUTE 07/03/2013 LUIZ LEGER MD Ot 250.00 DIAB CRISTIANO WO COMPL, TYPE II OR UNSPEC TY 07/03/2013 LUIZ LEGER MD Ot 272.4 HYPERLIPIDEMIA NEC/NOS 07/03/2013 LUIZ LEGER MD Ot 278.00 OBESITY, NOS 07/03/2013 LUIZ LEGER MD Ot 327.23 OBSTRUCTIVE SLEEP APNEA (ADULT) (PEDIATR 07/03/2013 LUIZ LEGER MD Ot 401.9 HYPERTENSION NOS 07/03/2013 LUIZ LEGER MD Ot 414.01 CORONARY ATHEROSCLEROSIS OF [place] CORON 07/03/2013 LUIZ LEGER MD Ot 427.81 SINOATRIAL NODE DYSFUNCT 07/03/2013 LUIZ LEGER MD Ot 530.81 ESOPHAGEAL REFLUX 07/03/2013 LUIZ LEGER MD Ot 553.3 DIAPHRAGMATIC HERNIA 07/03/2013 LUIZ LEGER MD Ot 786.09 RESPIRATORY ABNORM NEC 07/03/2013 LUIZ LEGER MD Ot 786.59 CHEST PAIN NEC 07/03/2013 LUIZ LEGER MD Ot V12.54 PERSONAL HX OF TIA, CEREBRAL INFARCTION 07/03/2013 LUIZ LEGER MD Ot V45.01 CARDIAC PACEMAKER IN SITU 07/03/2013 LUIZ LEGER MD Ot V45.82 PERCUTANEOUS TRANSLUM CORON ANGIOPLASTY 07/03/2013 LUIZ LEGER MD Ot V58.69 OT MED,LT,CURRENT USE 07/03/2013 LUIZ LEGER MD Ot V85.42 BODY MASS INDEX 45.0-49.9, ADULT 07/11/2013 MARIAELENA MAGUIRE Ot V57.1 PHYSICAL THERAPY NEC 07/11/2013 MARIAELENA MAGUIRE Ot V58.43 AFTERCARE POST SURGERY INJURY/TRAUMA 09/19/2013 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 APRN A 719.47 PAIN IN JOINT INVOLVING ANKLE AND FOOT 09/19/2013 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 APRN A 726.71 ACHILLES BURSITIS OR TENDINITIS 09/19/2013 KEN DALY APRN 719.47 PAIN IN JOINT INVOLVING ANKLE AND FOOT 09/19/2013 KEN DALY APRN 726.71 ACHILLES BURSITIS OR TENDINITIS 09/19/2013 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 APRN A 719.47 PAIN IN JOINT INVOLVING ANKLE AND FOOT 09/19/2013 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 APRN A 726.71 ACHILLES BURSITIS OR TENDINITIS 09/19/2013 GINA COLIN DO 719.47 PAIN IN JOINT INVOLVING ANKLE AND FOOT 09/19/2013 GINA COLIN DO K 726.71 ACHILLES BURSITIS OR TENDINITIS 09/19/2013 DARCY CRUZ APRNYL A 719.47 PAIN IN JOINT INVOLVING ANKLE AND FOOT 09/19/2013 DARCY CRUZ APRNYL A 726.71 ACHILLES BURSITIS OR TENDINITIS 09/19/2013 AIDAN BENSON APRN A 719.47 PAIN IN JOINT INVOLVING ANKLE AND FOOT 09/19/2013 AIDAN BENSON APRN A 726.71 ACHILLES BURSITIS OR TENDINITIS 09/19/2013 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 APRN A 719.47 PAIN IN JOINT INVOLVING ANKLE AND FOOT 09/19/2013 DARCY CRUZ APRNYL A 726.71 ACHILLES BURSITIS OR TENDINITIS 09/19/2013 CHANDU GARDNER APRN 719.47 PAIN IN JOINT INVOLVING ANKLE AND FOOT 09/19/2013 CHANDU GARDNER APRN N 726.71 ACHILLES BURSITIS OR TENDINITIS 11/11/2013 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 B AND B GANG WORKER Ot 719.47 JOINT PAIN-ANKLE 11/11/2013 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 B AND B GANG WORKER Ot 726.71 ACHILLES TENDINITIS 11/11/2013 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 B AND B GANG WORKER Ot V57.1 PHYSICAL THERAPY NEC 12/17/2013 DARCY CRUZ APRNYL A 719.46 PAIN- KNEE 12/17/2013 GINA COLIN DO 719.46 PAIN- KNEE 12/17/2013 DARCY CRUZ APRNYL A 719.46 PAIN- KNEE 12/17/2013 AIDAN BENSON APRN A 719.46 PAIN- KNEE 12/17/2013 DARCY CRUZ APRNYL A 719.46 PAIN- KNEE 12/17/2013 HARDINSACHIN ALVAREZ APRN, CHANDU N 719.46 PAIN- KNEE 02/13/2014 ANTHONY BRANDTCapri ANTONIO A V04.81 FLU SHOT 02/13/2014 KELLEY COMMUTER TRAIN OPERATOR, AIDAN A V04.81 FLU SHOT 02/13/2014 KOREYE COMMUTER TRAIN OPERATOR, ANTONIO A V04.81 FLU SHOT 02/13/2014 HARDIN HUSAMGISSELLE CONLEY APRNCY N V04.81 FLU SHOT 05/18/2014 KELLEY COMMUTER TRAIN OPERATOR, AIDAN A 799.81 DECREASED LIBIDO 05/18/2014 KELLEY COMMUTER TRAIN OPERATOR, AIDAN A V49.81 ASYMPTOMATIC POSTMENOPAUSAL STATUS (AGE-RELATED) (NATURAL) 05/18/2014 ANTHONY BRYAN ANTONIO A 799.81 DECREASED LIBIDO 05/18/2014 KOREYE COMMUTER TRAIN OPERATOR, ANTONIO A V49.81 ASYMPTOMATIC POSTMENOPAUSAL STATUS (AGE-RELATED) (NATURAL) 05/18/2014 HARDIN HUSAMGISSELLE CONLEY APRNCY N 799.81 DECREASED LIBIDO 05/18/2014 HARDIN HUSAMYAEL COMMUTER TRAIN OPERATORGISSELLE FarooqCY N V49.81 ASYMPTOMATIC POSTMENOPAUSAL STATUS (AGE-RELATED) (NATURAL) 05/28/2014 DARCY CRUZ APRNYL A V72.31 ENVIRONMENTAL LAW PROFESSOR EXAM, ROUTINE 05/28/2014 DARCY CRUZ APRNYL A V73.81 HPV SCREENING 05/28/2014 DARCY CRUZ APRNYL A V76.10 BREAST CANCER SCREENING 05/28/2014 DARCY CRUZ APRNYL A V76.2 CERVICAL CANCER SCREENING (PAP SMEAR) 05/28/2014 CHANDU GARDNER APRN N V72.31 ENVIRONMENTAL LAW PROFESSOR EXAM, ROUTINE 05/28/2014 GISSELLE GARDNER APRNCY N V73.81 HPV SCREENING 05/28/2014 LASHAWN HUSAMGISSELLE CONLEY APRNCY N V76.10 BREAST CANCER SCREENING 05/28/2014 LASHAWN HUSAMCHANDU CONLEY APRN N V76.2 CERVICAL CANCER SCREENING (PAP SMEAR) 06/04/2014 DARCY CRUZ APRNYL A 465.9 UPPER RESPIRATORY INFECTION 06/04/2014 DARCY CRUZ APRNYL A 786.2 COUGH 06/04/2014 LASHAWN HUSAMCHANDU CONLEY APRN N 465.9 UPPER RESPIRATORY INFECTION 06/04/2014 CHANDU GARDNER APRN N 786.2 COUGH 06/10/2014 BENJI BROWN MD Ot 715.35 LOC OSTEOARTH NOS-PELVIS 06/10/2014 BENJI BROWN MD Ot 724.4 LUMBOSACRAL NEURITIS NOS 06/10/2014 BENJI BROWN MD Ot 729.5 PAIN IN LIMB 06/11/2014 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 APRN A 486 PNEUMONIA UNSPECIFIED 06/11/2014 CHANDU GARDNER APRN N 486 PNEUMONIA UNSPECIFIED 07/01/2014 CHANDU GARDNER APRN N 701.9 SKIN TAG 07/13/2014 CHANDU GARDNER APRN N 789.03 ABDOMINAL PAIN RIGHT LOWER QUADRANT 08/14/2014 Ot 553.1 08/14/2014 Ot 562.10 08/14/2014 Ot 592.0 08/14/2014 Ot V81.5 08/26/2014 CHANDU GARDNER APRN N 729.5 PAIN IN LIMB 03/08/2015 Ot V53.31 03/08/2015 Ot V72.63 03/08/2015 Ot V72.81 03/08/2015 Ot V74.8 03/08/2015 Ot 998.59 03/08/2015 Ot 272.4 03/08/2015 Ot 427.81 03/08/2015 Ot 794.31 03/08/2015 Ot 272.4 03/08/2015 Ot 401.9 03/08/2015 Ot 414.00 03/08/2015 Ot 397.0 03/08/2015 Ot 414.00 03/08/2015 Ot 416.8 03/08/2015 Ot 424.0 03/08/2015 Ot 786.50 03/08/2015 Ot 414.00 03/08/2015 Ot 786.50 03/08/2015 Ot 434.91 03/08/2015 Ot 272.4 03/08/2015 Ot 553.20 03/08/2015 SARAHI RUIZ B AND B GANG WORKER Ot 250.00 03/08/2015 SARAHI RUIZP Ot 272.4 03/08/2015 SARAHI RUIZP Ot 401.9 03/08/2015 JEWEL OROZCO Ot 272.4 03/08/2015 VINICIO PA, JEWEL Nugent Ot 278.01 03/08/2015 VINICIO PA, JEWEL Nugent Ot 327.23 03/08/2015 VINICIO PA, JEWEL Nugent Ot 401.9 03/08/2015 VINICIO PA, JEWEL Nugent Ot 414.00 03/08/2015 VINICIO PA, JEWEL K Ot 496 03/08/2015 VINICIO PA, JEWEL Nugent Ot 786.05 03/08/2015 VINICIO PA, JEWEL Nugent Ot 272.4 03/08/2015 VINICIO PA, JEWEL Nugent Ot 278.01 03/08/2015 VINICIO PA, JEWEL Nugent Ot 327.23 03/08/2015 VINICIO PA, JEWEL Nugent Ot 401.9 03/08/2015 VINICIO PA, JEWEL Raffi Ot 414.00 03/08/2015 VINICIO PA, JEWEL Nugent Ot 496 03/08/2015 VINICIO PA, JEWEL Nugent Ot 786.05 03/08/2015 AIDAN BENSON APRN Ot V76.12 03/08/2015 Ot 553.1 03/08/2015 Ot 562.10 03/08/2015 Ot 592.0 03/08/2015 Ot V81.5 03/10/2015 VELIA ARDON MD Ot E11.9 TYPE 2 DIABETES MELLITUS WITHOUT COMPLIC 03/10/2015 VELIA ARDON MD Ot E78.5 HYPERLIPIDEMIA, UNSPECIFIED 03/10/2015 VELIA ARDON MD Ot G47.33 OBSTRUCTIVE SLEEP APNEA (ADULT) (PEDIATR 03/10/2015 VELIA ARDON MD Ot I10 ESSENTIAL (PRIMARY) HYPERTENSION 03/10/2015 VELIA ARDON MD Ot I25.10 ATHSCL HEART DISEASE OF [place] CORONARY 03/10/2015 VELIA ARDON MD Ot N13.2 HYDRONEPHROSIS WITH RENAL AND URETERAL C 03/10/2015 VELIA ARDON MD Ot N81.10 CYSTOCELE, UNSPECIFIED 03/10/2015 VELIA ARDON MD Ot Z79.899 OTHER MEDICAL MANAGEMENT SPECIALIST (CURRENT) DRUG THERAPY 03/10/2015 DUGLAS MARI, VELIA Farooq Ot Z95.0 PRESENCE OF CARDIAC PACEMAKER 03/11/2015 Ot V53.31 03/11/2015 Ot V72.63 03/11/2015 Ot V72.81 03/11/2015 Ot V74.8 03/11/2015 Ot 998.59 03/11/2015 Ot 272.4 03/11/2015 Ot 427.81 03/11/2015 Ot 794.31 03/11/2015 Ot 272.4 03/11/2015 Ot 401.9 03/11/2015 Ot 414.00 03/11/2015 Ot 397.0 03/11/2015 Ot 414.00 03/11/2015 Ot 416.8 03/11/2015 Ot 424.0 03/11/2015 Ot 786.50 03/11/2015 Ot 414.00 03/11/2015 Ot 786.50 03/11/2015 Ot 434.91 03/11/2015 Ot 272.4 03/11/2015 Ot 553.20 03/11/2015 SARAHI RUIZ B AND B GANG WORKER Ot 250.00 03/11/2015 SARAHI RUIZ B AND B GANG WORKER Ot 272.4 03/11/2015 SARAHI RUIZ B AND B GANG WORKER Ot 401.9 03/11/2015 VINICIO PAJEWEL K Ot 272.4 03/11/2015 VINICIO PA, JEWEL K Ot 278.01 03/11/2015 VINICIO PA, JEWEL K Ot 327.23 03/11/2015 VINICIO PA, JEWEL K Ot 401.9 03/11/2015 VINICIO PA, JEWEL K Ot 414.00 03/11/2015 VINICIO PA, JEWEL K Ot 496 03/11/2015 VINICIO PA, JEWEL K Ot 786.05 03/11/2015 VINICIO PA, JEWEL K Ot 272.4 03/11/2015 VINICIO PA, JEWEL K Ot 278.01 03/11/2015 VINICIO PA, JEWEL K Ot 327.23 03/11/2015 VINICIO PA, JEWEL K Ot 401.9 03/11/2015 VINCIIO PA, JEWEL K Ot 414.00 03/11/2015 JEWEL OROZCO Ot 496 03/11/2015 JEWEL OROZCO Ot 786.05 03/11/2015 AIDAN BENSON APRN Ot V76.12 03/11/2015 Ot 553.1 03/11/2015 Ot 562.10 03/11/2015 Ot 592.0 03/11/2015 Ot V81.5 03/11/2015 DRU LINDO MD Ot E78.5 03/11/2015 DRU LINDO MD Ot I10 03/11/2015 DRU LINDO MD Ot I25.10 03/11/2015 DRU LINDO MD Ot I49.5 03/11/2015 DRU LINDO MD Ot R55 03/19/2015 MARI AMARO MD Ot E11.9 TYPE 2 DIABETES MELLITUS WITHOUT COMPLIC 03/19/2015 MARI AMARO MD Ot N13.2 HYDRONEPHROSIS WITH RENAL AND URETERAL C 03/19/2015 MARI AMARO MD Ot Z79.899 OTHER SNF (CURRENT) DRUG THERAPY 03/19/2015 MARI AMARO MD Ot Z95.0 PRESENCE OF CARDIAC PACEMAKER 03/24/2015 DRU LINDO MD Ot E78.5 03/24/2015 DRU LINDO MD Ot I10 03/24/2015 DRU LINDO MD Ot I25.10 03/24/2015 DRU LINDO MD Ot I49.5 03/24/2015 DRU LINDO MD Ot R55 04/07/2015 DRU LINDO MD Ot E78.2 04/07/2015 DRU LINDO MD Ot I10 04/07/2015 DRU LINDO MD Ot I25.10 04/07/2015 DRU LINDO MD Ot I49.5 04/07/2015 DRU LINDO MD Ot R55 05/16/2015 ASHOK MARI, GABRIELA Hoyt Ot N13.2 HYDRONEPHROSIS WITH RENAL AND URETERAL C 05/16/2015 ASHOK MARI, GABRIELA Hoyt Ot N39.0 URINARY TRACT INFECTION, SITE NOT SPECIF 05/16/2015 Ot V53.31 05/16/2015 Ot V72.63 05/16/2015 Ot V72.81 05/16/2015 Ot V74.8 05/16/2015 Ot 998.59 05/16/2015 Ot 272.4 05/16/2015 Ot 427.81 05/16/2015 Ot 794.31 05/16/2015 Ot 272.4 05/16/2015 Ot 401.9 05/16/2015 Ot 414.00 05/16/2015 Ot 397.0 05/16/2015 Ot 414.00 05/16/2015 Ot 416.8 05/16/2015 Ot 424.0 05/16/2015 Ot 786.50 05/16/2015 Ot 414.00 05/16/2015 Ot 786.50 05/16/2015 Ot 434.91 05/16/2015 Ot 272.4 05/16/2015 Ot 553.20 05/16/2015 RUIZSARAHI B AND B GANG WORKER Ot 250.00 05/16/2015 RUIZSARAHI B AND B GANG WORKER Ot 272.4 05/16/2015 RUIZSARAHI B AND B GANG WORKER Ot 401.9 05/16/2015 CHRISTENSEN-CHETAN PA, JEWEL K Ot 272.4 05/16/2015 CHRISTENSEN-CHETAN PA, JEWEL K Ot 278.01 05/16/2015 CHRISTENSEN-CHETAN PA, JEWEL K Ot 327.23 05/16/2015 CHRISTENSEN-CHETAN PA, JEWEL K Ot 401.9 05/16/2015 CHRISTENSEN-CHETAN PA, JEWEL K Ot 414.00 05/16/2015 CHRISTENSEN-CHETAN PA, JEWEL K Ot 496 05/16/2015 CHRISTENSEN-CHETAN PA, JEWEL K Ot 786.05 05/16/2015 CHRISTENSEN-CHETAN PA, JEWEL K Ot 272.4 05/16/2015 CHRISTENSEN-CHETAN PA, JEWEL K Ot 278.01 05/16/2015 CHRISTENSEN-CHETAN PA, JEWEL K Ot 327.23 05/16/2015 CHRISTENSEN-CHETAN PA, JEWEL K Ot 401.9 05/16/2015 CHRISTENSEN-CHETAN PA, JEWEL K Ot 414.00 05/16/2015 CHRISTENSEN-CHETAN PA, JEWEL K Ot 496 05/16/2015 CHRISTENSEN-CHETAN PA, JEWEL K Ot 786.05 05/16/2015 AIDAN BENSON APRN Ot V76.12 05/16/2015 Ot 553.1 05/16/2015 Ot 562.10 05/16/2015 Ot 592.0 05/16/2015 Ot V81.5 05/16/2015 GUICHO MARI, DRU Aguero Ot E78.5 05/16/2015 GUICHO MARI, DRU Aguero Ot I10 05/16/2015 GUICHO MARI, DRU Aguero Ot I25.10 05/16/2015 GUICHO MARI, DRU Aguero Ot I49.5 05/16/2015 GUICHO MARI, DRU Aguero Ot R55 05/16/2015 GUICHO MARI, DRU Aguero Ot E78.2 05/16/2015 GUICHO MARI, DRU Aguero Ot I10 05/16/2015 GUICHO MARI, DRU Aguero Ot I25.10 05/16/2015 GUICHO MARI, DRU Aguero Ot I49.5 05/16/2015 GUICHO MARI, DRU Aguero Ot R55 05/16/2015 JAYSON MARI, NOHEMY Mcclendon Ot N20.2 05/19/2015 NOHEMY TYLER MD Ot N20.2 05/27/2015 BENJI BROWN MD Ot S00.81XA ABRASION OF OTHER PART OF HEAD, INITIAL 05/27/2015 BENJI BROWN MD Ot S09.90XA UNSPECIFIED INJURY OF HEAD, INITIAL ENCO 05/27/2015 BENJI BROWN MD Ot W01.0XXA FALL SAME LEV FROM SLIP/TRIP W/O STRIKE 05/27/2015 BENJI BROWN MD Ot Y92.[address] TO SINGLE-FAMILY (PRIVA 05/27/2015 BENJI BROWN MD Ot Y99.0 CIVILIAN ACTIVITY DONE FOR INCOME OR PAY 07/11/2015 JAYSON MARI, NOHEMY Mcclendon Ot N20.2 CALCULUS OF KIDNEY WITH CALCULUS OF [place] 11/22/2015 Ot 272.4 HYPERLIPIDEMIA NEC/NOS 11/22/2015 Ot 427.81 SINOATRIAL NODE DYSFUNCT 11/22/2015 Ot 794.31 ABNORM ELECTROCARDIOGRAM 11/22/2015 Ot 272.4 HYPERLIPIDEMIA NEC/NOS 11/22/2015 Ot 401.9 HYPERTENSION NOS 11/22/2015 Ot 414.00 CORON ATHEROSCLER NOS TYPE VESSEL, NATIV 11/22/2015 Ot 397.0 TRICUSPID VALVE DISEASE 11/22/2015 Ot 414.00 CORON ATHEROSCLER NOS TYPE VESSEL, NATIV 11/22/2015 Ot 416.8 CHR PULMON HEART DIS NEC 11/22/2015 Ot 424.0 MITRAL VALVE DISORDER 11/22/2015 Ot 786.50 CHEST PAIN NOS 11/22/2015 Ot 414.00 CORON ATHEROSCLER NOS TYPE VESSEL, NATIV 11/22/2015 Ot 786.50 CHEST PAIN NOS 11/22/2015 Ot 434.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 NOS W CEREBRAL IN 11/22/2015 Ot 272.4 HYPERLIPIDEMIA NEC/NOS 11/22/2015 Ot 553.20 VENTRAL HERNIA NOS 11/22/2015 RUIZ, SARAHI Mcclendon B AND B GANG WORKER Ot 250.00 DIAB CRISTIANO WO COMPL, TYPE II OR UNSPEC TY 11/22/2015 RUIZ, SARAHI Mcclendon B AND B GANG WORKER Ot 272.4 HYPERLIPIDEMIA NEC/NOS 11/22/2015 RUIZSARAHI B AND B GANG WORKER Ot 401.9 HYPERTENSION NOS 11/22/2015 JEWEL OROZCO Ot 272.4 HYPERLIPIDEMIA NEC/NOS 11/22/2015 JEWEL OROZCO Ot 278.01 MORBID OBESITY 11/22/2015 JEWEL OROZCO Ot 327.23 OBSTRUCTIVE SLEEP APNEA (ADULT) (PEDIATR 11/22/2015 JEWEL OROZCO Ot 401.9 HYPERTENSION NOS 11/22/2015 JEWEL OROZCO Ot 414.00 CORON ATHEROSCLER NOS TYPE VESSEL, NATIV 11/22/2015 JEWEL OROZCO Ot 496 CHR AIRWAY OBSTRUCT NEC 11/22/2015 JEWEL OROZCO Ot 786.05 SHORTNESS OF BREATH 11/22/2015 JEWEL OROZCO Ot 272.4 HYPERLIPIDEMIA NEC/NOS 11/22/2015 JEWEL OROZCO Ot 278.01 MORBID OBESITY 11/22/2015 JEWEL OROZCO Ot 327.23 OBSTRUCTIVE SLEEP APNEA (ADULT) (PEDIATR 11/22/2015 JEWEL OROZCO Ot 401.9 HYPERTENSION NOS 11/22/2015 JEWEL OROZCO Ot 414.00 CORON ATHEROSCLER NOS TYPE VESSEL, NATIV 11/22/2015 JEWEL OROZCO Ot 496 CHR AIRWAY OBSTRUCT NEC 11/22/2015 JEWEL OROZCO Ot 786.05 SHORTNESS OF BREATH 11/22/2015 AIDAN BENSON APRN Ot V76.12 OTH SCREEN MAMMO-MALIGN NEOPLASM OF [place] 11/22/2015 Ot 553.1 UMBILICAL HERNIA 11/22/2015 Ot 562.10 DIVERTICULOSIS COLON (W/O MENT OF HEMORR 11/22/2015 Ot 592.0 CALCULUS OF KIDNEY 11/22/2015 Ot V81.5 SCREEN FOR NEPHROPATHY 11/22/2015 DRU LINDO MD Ot E78.5 HYPERLIPIDEMIA, UNSPECIFIED 11/22/2015 DRU LINDO MD Ot I10 ESSENTIAL (PRIMARY) HYPERTENSION 11/22/2015 DRU LINDO MD Ot I25.10 ATHSCL HEART DISEASE OF [place] CORONARY 11/22/2015 DRU LINDO MD Ot I49.5 SICK SINUS SYNDROME 11/22/2015 DRU LINDO MD Ot R55 SYNCOPE AND COLLAPSE 11/22/2015 DRU LINDO MD Ot E78.2 MIXED HYPERLIPIDEMIA 11/22/2015 DRU LINDO MD Ot I10 ESSENTIAL (PRIMARY) HYPERTENSION 11/22/2015 DRU LINDO MD Ot I25.10 ATHSCL HEART DISEASE OF [place] CORONARY 11/22/2015 DRU LINDO MD Ot I49.5 SICK SINUS SYNDROME 11/22/2015 DRU LINDO MD Ot R55 SYNCOPE AND COLLAPSE 11/22/2015 JAYSON MARI, NOHEMY Mcclendon Ot N20.2 CALCULUS OF KIDNEY WITH CALCULUS OF [place] 11/22/2015 ERNESTINA RUELAS DO Ot M17.11 UNILATERAL PRIMARY OSTEOARTHRITIS, RIGHT 11/22/2015 ERNESTINA RUELAS DO Ot S59.901A UNSPECIFIED INJURY OF RIGHT ELBOW, INITI 11/22/2015 ERNESTINA RUELAS DO Ot S80.01XA CONTUSION OF RIGHT KNEE, INITIAL ENCOUNT 11/22/2015 ERNESTINA RUELAS DO Ot W01.0XXA FALL SAME LEV FROM SLIP/TRIP W/O STRIKE 11/22/2015 ERNESTINA RUELAS DO Ot Y92.[address] OF OCCURRENCE OF T 11/22/2015 ERNESTINA RUELAS DO Ot Y99.0 CIVILIAN ACTIVITY DONE FOR INCOME OR PAY 11/22/2015 ERNESTINA RUELAS DO Ot Z23 ENCOUNTER FOR IMMUNIZATION 11/26/2015 Ot 272.4 HYPERLIPIDEMIA NEC/NOS 11/26/2015 Ot 427.81 SINOATRIAL NODE DYSFUNCT 11/26/2015 Ot 794.31 ABNORM ELECTROCARDIOGRAM 11/26/2015 Ot 272.4 HYPERLIPIDEMIA NEC/NOS 11/26/2015 Ot 401.9 HYPERTENSION NOS 11/26/2015 Ot 414.00 CORON ATHEROSCLER NOS TYPE VESSEL, NATIV 11/26/2015 Ot 397.0 TRICUSPID VALVE DISEASE 11/26/2015 Ot 414.00 CORON ATHEROSCLER NOS TYPE VESSEL, NATIV 11/26/2015 Ot 416.8 CHR PULMON HEART DIS NEC 11/26/2015 Ot 424.0 MITRAL VALVE DISORDER 11/26/2015 Ot 786.50 CHEST PAIN NOS 11/26/2015 Ot 414.00 CORON ATHEROSCLER NOS TYPE VESSEL, NATIV 11/26/2015 Ot 786.50 CHEST PAIN NOS 11/26/2015 Ot 434.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 NOS W CEREBRAL IN 11/26/2015 Ot 272.4 HYPERLIPIDEMIA NEC/NOS 11/26/2015 Ot 553.20 VENTRAL HERNIA NOS 11/26/2015 RUIZSARAHI IRAHETA B AND B GANG WORKER Ot 250.00 DIAB CRISTIANO WO COMPL, TYPE II OR UNSPEC TY 11/26/2015 RUIZSARAHI IRAHETA B AND B GANG WORKER Ot 272.4 HYPERLIPIDEMIA NEC/NOS 11/26/2015 SARAHI RUIZ B AND B GANG WORKER Ot 401.9 HYPERTENSION NOS 11/26/2015 JEWEL OROZCO Ot 272.4 HYPERLIPIDEMIA NEC/NOS 11/26/2015 JEWEL OROZCO Ot 278.01 MORBID OBESITY 11/26/2015 JEWEL OROZCO Ot 327.23 OBSTRUCTIVE SLEEP APNEA (ADULT) (PEDIATR 11/26/2015 JEWEL OROZCO Ot 401.9 HYPERTENSION NOS 11/26/2015 JEWEL OROZCO Ot 414.00 CORON ATHEROSCLER NOS TYPE VESSEL, NATIV 11/26/2015 JEWEL OROZCO Ot 496 CHR AIRWAY OBSTRUCT NEC 11/26/2015 JEWEL OROZCO Ot 786.05 SHORTNESS OF BREATH 11/26/2015 JEWEL OROZCO Ot 272.4 HYPERLIPIDEMIA NEC/NOS 11/26/2015 JEWEL OROZCO Ot 278.01 MORBID OBESITY 11/26/2015 JEWEL OROZCO Ot 327.23 OBSTRUCTIVE SLEEP APNEA (ADULT) (PEDIATR 11/26/2015 JEWEL OROZCO Ot 401.9 HYPERTENSION NOS 11/26/2015 JEWEL OROZCO Ot 414.00 CORON ATHEROSCLER NOS TYPE VESSEL, NATIV 11/26/2015 JEWEL OROZCO Ot 496 CHR AIRWAY OBSTRUCT NEC 11/26/2015 JEWEL OROZCO Ot 786.05 SHORTNESS OF BREATH 11/26/2015 AIDAN BENSON APRN Ot V76.12 OTH SCREEN MAMMO-MALIGN NEOPLASM OF [place] 11/26/2015 Ot 553.1 UMBILICAL HERNIA 11/26/2015 Ot 562.10 DIVERTICULOSIS COLON (W/O MENT OF HEMORR 11/26/2015 Ot 592.0 CALCULUS OF KIDNEY 11/26/2015 Ot V81.5 SCREEN FOR NEPHROPATHY 11/26/2015 DRU LINDO MD Ot E78.5 HYPERLIPIDEMIA, UNSPECIFIED 11/26/2015 DRU LINDO MD Ot I10 ESSENTIAL (PRIMARY) HYPERTENSION 11/26/2015 DRU LINDO MD Ot I25.10 ATHSCL HEART DISEASE OF [place] CORONARY 11/26/2015 DRU LINDO MD Ot I49.5 SICK SINUS SYNDROME 11/26/2015 DRU LINDO MD Ot R55 SYNCOPE AND COLLAPSE 11/26/2015 DRU LINDO MD Ot E78.2 MIXED HYPERLIPIDEMIA 11/26/2015 DRU LINDO MD Ot I10 ESSENTIAL (PRIMARY) HYPERTENSION 11/26/2015 DRU LINDO MD Ot I25.10 ATHSCL HEART DISEASE OF [place] CORONARY 11/26/2015 DRU LINDO MD Ot I49.5 SICK SINUS SYNDROME 11/26/2015 DRU LINDO MD Ot R55 SYNCOPE AND COLLAPSE 11/26/2015 JAYSON MARI, NOHEMY Mcclendon Ot N20.2 CALCULUS OF KIDNEY WITH CALCULUS OF [place] 12/16/2015 ERNESTINA RUELAS DO Ot M17.11 UNILATERAL PRIMARY OSTEOARTHRITIS, RIGHT 12/16/2015 ERNESTINA RUELAS DO Ot S59.901A UNSPECIFIED INJURY OF RIGHT ELBOW, INITI 12/16/2015 ERNESTINA RUELAS DO Ot S80.01XA CONTUSION OF RIGHT KNEE, INITIAL ENCOUNT 12/16/2015 ERNESTINA RUELAS DO Ot W01.0XXA FALL SAME LEV FROM SLIP/TRIP W/O STRIKE 12/16/2015 ERNESTINA RUELAS DO Ot Y92.[address] OF OCCURRENCE OF T 12/16/2015 ERNESTINA RUELAS DO Ot Y99.0 CIVILIAN ACTIVITY DONE FOR INCOME OR PAY 12/16/2015 ERNESTINA RUELAS DO Ot Z23 ENCOUNTER FOR IMMUNIZATION 01/18/2016 YANA SCHMITZ COMMUTER TRAIN OPERATOR Ot R10.84 GENERALIZED ABDOMINAL PAIN 01/18/2016 YANA SCHMITZ COMMUTER TRAIN OPERATOR Ot Z87.442 PERSONAL HISTORY OF URINARY CALCULI 02/01/2016 NOHEMY TYLER MD Ot N20.0 CALCULUS OF KIDNEY 02/01/2016 DRU LINDO MD Ot E78.2 MIXED HYPERLIPIDEMIA 02/01/2016 DRU LINDO MD Ot N20.0 CALCULUS OF KIDNEY 02/01/2016 DRU LINDO MD Ot E78.2 MIXED HYPERLIPIDEMIA 02/01/2016 GUICHO MARI, DRU Aguero Ot N20.0 CALCULUS OF KIDNEY 02/02/2016 YANA SCHMIZT COMMUTER TRAIN OPERATOR Ot R10.84 GENERALIZED ABDOMINAL PAIN 02/02/2016 YANA SCHMITZ COMMUTER TRAIN OPERATOR Ot Z87.442 PERSONAL HISTORY OF URINARY CALCULI 02/03/2016 DRU LINDO MD Ot E78.2 MIXED HYPERLIPIDEMIA 02/03/2016 DRU LINDO MD Ot N20.0 CALCULUS OF KIDNEY 02/16/2016 DRU LINDO MD Ot E78.2 MIXED HYPERLIPIDEMIA 02/16/2016 DRU LINDO MD Ot N20.0 CALCULUS OF KIDNEY 02/16/2016 NOHEMY TYLER MD Ot N20.0 CALCULUS OF KIDNEY 04/18/2016 Ot 427.81 SINOATRIAL NODE DYSFUNCT 04/18/2016 Ot 794.31 ABNORM ELECTROCARDIOGRAM 04/18/2016 Ot 272.4 HYPERLIPIDEMIA NEC/NOS 04/18/2016 Ot 401.9 HYPERTENSION NOS 04/18/2016 Ot 414.00 CORON ATHEROSCLER NOS TYPE VESSEL, NATIV 04/18/2016 Ot 397.0 TRICUSPID VALVE DISEASE 04/18/2016 Ot 414.00 CORON ATHEROSCLER NOS TYPE VESSEL, NATIV 04/18/2016 Ot 416.8 CHR PULMON HEART DIS NEC 04/18/2016 Ot 424.0 MITRAL VALVE DISORDER 04/18/2016 Ot 786.50 CHEST PAIN NOS 04/18/2016 Ot 414.00 CORON ATHEROSCLER NOS TYPE VESSEL, NATIV 04/18/2016 Ot 786.50 CHEST PAIN NOS 04/18/2016 Ot 434.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 NOS W CEREBRAL IN 04/18/2016 Ot 272.4 HYPERLIPIDEMIA NEC/NOS 04/18/2016 Ot 553.20 VENTRAL HERNIA NOS 04/18/2016 RUIZSARAHI IRAHETA [employer] WORKER Ot 250.00 DIAB CRISTIANO WO COMPL, TYPE II OR UNSPEC TY 04/18/2016 RUIZSARAHI [employer] G[employer] WORKER Ot 272.4 HYPERLIPIDEMIA NEC/NOS 04/18/2016 RUIZSARAHI IRAHETA [employer] WORKER Ot 401.9 HYPERTENSION NOS 04/18/2016 JEWEL OROZCO Ot 272.4 HYPERLIPIDEMIA NEC/NOS 04/18/2016 JEWEL OROZCO Ot 278.01 MORBID OBESITY 04/18/2016 JEWEL OROZCO Ot 327.23 OBSTRUCTIVE SLEEP APNEA (ADULT) (PEDIATR 04/18/2016 JEWEL OROZCO Ot 401.9 HYPERTENSION NOS 04/18/2016 JEWEL OROZCO Ot 414.00 CORON ATHEROSCLER NOS TYPE VESSEL, NATIV 04/18/2016 JEWEL OROZCO Ot 496 CHR AIRWAY OBSTRUCT NEC 04/18/2016 JEWEL OROZCO Ot 786.05 SHORTNESS OF BREATH 04/18/2016 JEWEL OROZCO Ot 272.4 HYPERLIPIDEMIA NEC/NOS 04/18/2016 JEWEL OROZCO Ot 278.01 MORBID OBESITY 04/18/2016 JEWEL OROZCO Ot 327.23 OBSTRUCTIVE SLEEP APNEA (ADULT) (PEDIATR 04/18/2016 JEWEL OROZCO Ot 401.9 HYPERTENSION NOS 04/18/2016 JEWEL OROZCO Ot 414.00 CORON ATHEROSCLER NOS TYPE VESSEL, NATIV 04/18/2016 JEWEL OROZCO Ot 496 CHR AIRWAY OBSTRUCT NEC 04/18/2016 JEWEL OROZCO Ot 786.05 SHORTNESS OF BREATH 04/18/2016 AIDAN BENSON Danelle ADAMS Ot V76.12 OTH SCREEN MAMMO-MALIGN NEOPLASM OF [place] 04/18/2016 Ot 553.1 UMBILICAL HERNIA 04/18/2016 Ot 562.10 DIVERTICULOSIS COLON (W/O MENT OF HEMORR 04/18/2016 Ot 592.0 CALCULUS OF KIDNEY 04/18/2016 Ot V81.5 SCREEN FOR NEPHROPATHY 04/18/2016 DRU LINDO MD Ot E78.5 HYPERLIPIDEMIA, UNSPECIFIED 04/18/2016 DRU LINDO MD Ot I10 ESSENTIAL (PRIMARY) HYPERTENSION 04/18/2016 DRU LINDO MD Ot I25.10 ATHSCL HEART DISEASE OF [place] CORONARY 04/18/2016 DRU LINDO MD Ot I49.5 SICK SINUS SYNDROME 04/18/2016 DRU LINDO MD Ot R55 SYNCOPE AND COLLAPSE 04/18/2016 DRU LINDO MD Ot E78.2 MIXED HYPERLIPIDEMIA 04/18/2016 DRU LINDO MD Ot I10 ESSENTIAL (PRIMARY) HYPERTENSION 04/18/2016 DRU LINDO MD Ot I25.10 ATHSCL HEART DISEASE OF [place] CORONARY 04/18/2016 DRU LINDO MD Ot I49.5 SICK SINUS SYNDROME 04/18/2016 DRU LINDO MD Ot R55 SYNCOPE AND COLLAPSE 04/18/2016 NOHEMY TYLER MD Ot N20.2 CALCULUS OF KIDNEY WITH CALCULUS OF [place] 04/18/2016 YANA SCHMITZ COMMUTER TRAIN OPERATOR Ot R10.84 GENERALIZED ABDOMINAL PAIN 04/18/2016 YANA SCHMITZ COMMUTER TRAIN OPERATOR Ot Z87.442 PERSONAL HISTORY OF URINARY CALCULI 04/18/2016 DRU LINDO MD Ot E78.2 MIXED HYPERLIPIDEMIA 04/18/2016 DRU LINDO MD Ot N20.0 CALCULUS OF KIDNEY 04/18/2016 NOHEMY TYLER MD Ot N20.0 CALCULUS OF KIDNEY 04/19/2016 RAJOTTE, ANTONIO A B [employer] GANG WORKER Ot I10 ESSENTIAL (PRIMARY) HYPERTENSION 04/19/2016 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 [employer] GANG WORKER Ot R00.1 BRADYCARDIA, UNSPECIFIED 04/19/2016 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 [employer] GANG WORKER Ot R42 DIZZINESS AND GIDDINESS 04/19/2016 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 B [employer] B GANG WORKER Ot Z95.0 PRESENCE OF CARDIAC PACEMAKER 04/30/2016 JAYSON MARI, NOHEMY Mcclendon Ot N20.0 CALCULUS OF KIDNEY 05/03/2016 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 B [employer] B GANG WORKER Ot I10 ESSENTIAL (PRIMARY) HYPERTENSION 05/03/2016 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 B AND B GANG WORKER Ot R00.1 BRADYCARDIA, UNSPECIFIED 05/03/2016 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 B [employer] B GANG WORKER Ot R42 DIZZINESS AND GIDDINESS 05/03/2016 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 B [employer] GANG WORKER Ot Z95.0 PRESENCE OF CARDIAC PACEMAKER 01/01/2017 MAY OROZCOTH K Ot E78.2 MIXED HYPERLIPIDEMIA 01/01/2017 MAY OROZCOTH K Ot I10 ESSENTIAL (PRIMARY) HYPERTENSION 01/01/2017 VINICIO NICOLE JEWEL K Ot I25.10 ATHSCL HEART DISEASE OF [place] CORONARY 01/01/2017 MAY OROZCOTH K Ot R42 DIZZINESS AND GIDDINESS 01/17/2017 MAY OROZCOTH K Ot E78.2 MIXED HYPERLIPIDEMIA 01/17/2017 VINICIO NICOLE JEWEL K Ot I10 ESSENTIAL (PRIMARY) HYPERTENSION 01/17/2017 DINO OROZCODITH K Ot I25.10 ATHSCL HEART DISEASE OF [place] CORONARY 01/17/2017 VINICIO NICOLE JEWEL K Ot R42 DIZZINESS AND GIDDINESS 02/07/2017 VINICIO NICOLE JEWEL K Ot E78.2 MIXED HYPERLIPIDEMIA 02/07/2017 VINICIO NICOLE JEWEL K Ot I10 ESSENTIAL (PRIMARY) HYPERTENSION 02/07/2017 VINICIO NICOLE JEWEL K Ot I25.10 ATHSCL HEART DISEASE OF [place] CORONARY 02/07/2017 VINICIO NICOLE JEWEL K Ot R42 DIZZINESS AND GIDDINESS 02/27/2017 GUICHO MARI, DRU Aguero Ot I10 ESSENTIAL (PRIMARY) HYPERTENSION 02/27/2017 DRU LINDO MD Ot I25.10 ATHSCL HEART DISEASE OF [place] CORONARY 02/27/2017 DRU LINDO MD Ot I49.5 SICK SINUS SYNDROME 02/27/2017 DRU LINDO MD Ot R00.2 PALPITATIONS 02/27/2017 DRU LINDO MD Ot R06.02 SHORTNESS OF BREATH 03/08/2017 DRU LINDO MD Ot I10 ESSENTIAL (PRIMARY) HYPERTENSION 03/08/2017 DRU LINDO MD Ot I25.10 ATHSCL HEART DISEASE OF [place] CORONARY 03/08/2017 DRU LINDO MD Ot I49.5 SICK SINUS SYNDROME 03/08/2017 DRU LINDO MD Ot R00.2 PALPITATIONS 03/08/2017 DRU LINDO MD Ot R06.02 SHORTNESS OF BREATH 04/04/2017 DRU LINDO MD Ot E66.9 OBESITY, UNSPECIFIED 04/04/2017 DRU LINDO MD Ot E78.5 HYPERLIPIDEMIA, UNSPECIFIED 04/04/2017 DRU LINDO MD Ot G47.33 OBSTRUCTIVE SLEEP APNEA (ADULT) (PEDIATR 04/04/2017 DRU LINDO MD Ot I10 ESSENTIAL (PRIMARY) HYPERTENSION 04/04/2017 DRU LINDO MD Ot I25.10 ATHSCL HEART DISEASE OF [place] CORONARY 04/04/2017 DRU LINDO MD Ot I49.5 SICK SINUS SYNDROME 04/04/2017 DRU LINDO MD Ot I65.23 OCCLUSION AND STENOSIS OF BILATERAL [place] 04/04/2017 DRU LINDO MD Ot J44.9 CHRONIC OBSTRUCTIVE PULMONARY DISEASE, U 04/04/2017 DRU LINDO MD Ot R07.9 CHEST PAIN, UNSPECIFIED 04/04/2017 DRU LINDO MD Ot Z68.42 BODY MASS INDEX (BMI) 45.0-49.9, ADULT 04/04/2017 DRU LINDO MD Ot Z79.82 SNF (CURRENT) USE OF ASPIRIN 04/04/2017 DRU LINDO MD Ot Z79.899 OTHER MEDICAL MANAGEMENT SPECIALIST (CURRENT) DRUG THERAPY 04/04/2017 DRU LINDO MD Ot Z88.0 ALLERGY STATUS TO PENICILLIN 04/04/2017 DRU LINDO MD Ot Z95.0 PRESENCE OF CARDIAC PACEMAKER 04/18/2017 DRU LINDO MD Ot E66.9 OBESITY, UNSPECIFIED 04/18/2017 DRU LINDO MD Ot E78.5 HYPERLIPIDEMIA, UNSPECIFIED 04/18/2017 DRU LINDO MD Ot G47.33 OBSTRUCTIVE SLEEP APNEA (ADULT) (PEDIATR 04/18/2017 DRU LINDO MD Ot I10 ESSENTIAL (PRIMARY) HYPERTENSION 04/18/2017 DRU LINDO MD Ot I25.10 ATHSCL HEART DISEASE OF [place] CORONARY 04/18/2017 DRU LINDO MD Ot I49.5 SICK SINUS SYNDROME 04/18/2017 DRU LINDO MD Ot I65.23 OCCLUSION AND STENOSIS OF BILATERAL RUBIN 04/18/2017 DRU LINDO MD, Ot J44.9 CHRONIC OBSTRUCTIVE PULMONARY DISEASE, U 04/18/2017 DRU LINDO MD Ot R07.9 CHEST PAIN, UNSPECIFIED 04/18/2017 DRU LINDO MD Ot Z68.42 BODY MASS INDEX (BMI) 45.0-49.9, ADULT 04/18/2017 DRU LINDO MD Ot Z79.82 SNF (CURRENT) USE OF ASPIRIN 04/18/2017 DRU LINDO MD Ot Z79.899 OTHER SNF (CURRENT) DRUG THERAPY 04/18/2017 DRU LINDO MD Ot Z88.0 ALLERGY STATUS TO PENICILLIN 04/18/2017 DRU LINDO MD Ot Z95.0 PRESENCE OF CARDIAC PACEMAKER 08/02/2017 TRISTAN ALCALA APRN Ot E11.9 TYPE 2 DIABETES MELLITUS WITHOUT COMPLIC 08/02/2017 TRISTAN ALCALA APRN Ot E78.00 PURE HYPERCHOLESTEROLEMIA, UNSPECIFIED 08/02/2017 TRISTAN ALCALA APRN Ot F32.9 MAJOR DEPRESSIVE DISORDER, SINGLE EPISOD 08/02/2017 TRISTAN ALCALA APRN Ot G47.30 SLEEP APNEA, UNSPECIFIED 08/02/2017 TRISTAN ALCALA APRN Ot I10 ESSENTIAL (PRIMARY) HYPERTENSION 08/02/2017 TRISTAN ALCALA APRN Ot I25.10 ATHSCL HEART DISEASE OF [place] CORONARY 08/02/2017 TRISTAN ALCALA APRN Ot N20.1 CALCULUS OF URETER 08/02/2017 TRISTAN ALCALA APRN Ot R10.9 UNSPECIFIED ABDOMINAL PAIN 08/02/2017 TRISTAN ALCALA APRN Ot Z79.82 SNF (CURRENT) USE OF ASPIRIN 08/02/2017 TRISTAN ALCALA APRN Ot Z82.49 FAMILY HX OF ISCHEM HEART DIS AND OTH DI 08/02/2017 TRISTAN ALCALA APRN Ot Z86.73 PRSNL HX OF TIA (TIA), AND CEREB INFRC W 08/02/2017 TRISTAN ALCALA APRN Ot Z87.19 PERSONAL HISTORY OF OTHER DISEASES OF TH 08/02/2017 TRISTAN ALCALA APRN Ot Z87.442 PERSONAL HISTORY OF URINARY CALCULI 08/02/2017 TRISTAN ALCALA APRN Ot Z88.0 ALLERGY STATUS TO PENICILLIN 08/02/2017 TRISTAN ALCALA APRN Ot Z88.1 ALLERGY STATUS TO OTHER ANTIBIOTIC AGENT 08/02/2017 TRISTAN ALCALA APRN Ot Z95.0 PRESENCE OF CARDIAC PACEMAKER 08/02/2017 TRISTAN ALCALA APRN Ot Z95.5 PRESENCE OF CORONARY ANGIOPLASTY IMPLANT 08/06/2017 TRISTAN ALCALA APRN Ot E11.9 TYPE 2 DIABETES MELLITUS WITHOUT COMPLIC 08/06/2017 TRISTAN ALCALA APRN Ot E78.00 PURE HYPERCHOLESTEROLEMIA, UNSPECIFIED 08/06/2017 TRISTAN ALCALA APRN Ot F32.9 MAJOR DEPRESSIVE DISORDER, SINGLE EPISOD 08/06/2017 TRISTAN ALCALA APRN Ot G47.30 SLEEP APNEA, UNSPECIFIED 08/06/2017 TRISTAN ALCALA APRN Ot I10 ESSENTIAL (PRIMARY) HYPERTENSION 08/06/2017 TRISTAN ALCALA APRN Ot I25.10 ATHSCL HEART DISEASE OF [place] CORONARY 08/06/2017 TRISTAN ALCALA APRN Ot N20.1 CALCULUS OF URETER 08/06/2017 TRISTAN ALCALA APRN Ot R10.9 UNSPECIFIED ABDOMINAL PAIN 08/06/2017 TRISTAN ALCALA APRN Ot Z79.82 MEDICAL MANAGEMENT SPECIALIST (CURRENT) USE OF ASPIRIN 08/06/2017 TRISTAN ALCALA APRN Ot Z82.49 FAMILY HX OF ISCHEM HEART DIS AND OTH DI 08/06/2017 TRISTAN ALCALA APRN Ot Z86.73 PRSNL HX OF TIA (TIA), AND CEREB INFRC W 08/06/2017 TRISTAN ALCALA COMMUTER TRAIN OPERATOR Ot Z87.19 PERSONAL HISTORY OF OTHER DISEASES OF TH 08/06/2017 TRISTAN ALCALA COMMUTER TRAIN OPERATOR Ot Z87.442 PERSONAL HISTORY OF URINARY CALCULI 08/06/2017 TRISTAN ALCALA COMMUTER TRAIN OPERATOR Ot Z88.0 ALLERGY STATUS TO PENICILLIN 08/06/2017 TRISTAN ALCALA COMMUTER TRAIN OPERATOR Ot Z88.1 ALLERGY STATUS TO OTHER ANTIBIOTIC AGENT 08/06/2017 TRISTAN ALCALA COMMUTER TRAIN OPERATOR Ot Z95.0 PRESENCE OF CARDIAC PACEMAKER 08/06/2017 TRISTAN ALCALA COMMUTER TRAIN OPERATOR Ot Z95.5 PRESENCE OF CORONARY ANGIOPLASTY IMPLANT 08/10/2017 JAYSON MARI, NOHEMY Mcclendon Ot N20.2 CALCULUS OF KIDNEY WITH CALCULUS OF URET 08/10/2017 NOHEMY TYLER MD Ot N20.0 CALCULUS OF KIDNEY 08/12/2017 NOHEMY TYLER MD Ot N20.1 CALCULUS OF URETER Procedures Code Description Performed By Performed On 00.40 PROCEDURE ON SINGLE VESSEL 03/01/2011 00.45 INSERTION OF ONE VASCULAR STENT 03/01/2011 00.66 PERCUTANEOUS TRANSLUMINAL CORONARY ANGIO 03/01/2011 36.07 INSRT OF DRUG-ELUTING CORON ARTERY STENT 03/01/2011 37.22 LEFT HEART CARDIAC CATH 03/01/2011 88.53 LT HEART ANGIOCARDIOGRAM 03/01/2011 88.56 CORONAR ARTERIOGR-2 CATH 03/01/2011 27423 A1C (IN-HOUSE) 04/19/2012 09690 MICRO ALBUMIN-IN HOUSE 04/19/2012 55575 US ABDOMINAL ULTRASOUND, COMPLETE 05/10/2012 02215 OXIMETRY 04/11/2013 18129 OXIMETRY 04/27/2013 39395 XRAY CHEST 2 VIEW 05/14/2013 86604 ROUTINE VENIPUNCTURE 06/23/2013 [id number] GFR CALC (RESULT ONLY) 06/23/2013 18959 CMP 06/23/2013 79431 LIPID PANEL 06/23/2013 Physical Physical Therapy, [facility] 09/23/2013 45329 A1C (IN-HOUSE) 10/03/2013 Omid Pool 12/21/2013 77569 ROUTINE VENIPUNCTURE 02/02/2014 80373 LIPID PANEL 02/02/2014 90876 LIVER PANEL (LFT) 02/02/2014 07538 ROUTINE VENIPUNCTURE 05/18/2014 83576 [facility] 05/18/2014 44136 [facility] 05/18/2014 61101 05/18/2014 Results Test Result Range CD3+CD4+ (T4 helper) cells/100 cells in blood - 02/01/16 06:30 Timed urine calcium measurement (mass/volume) 231 % < 250 Urine oxalate detection 55 < 45 Urine uric acid measurement (mass/volume) 281 % < 700 Urine citrate measurement (mass/volume) 644 % > 320 Urine pH measurement 5.5 5.5-7.0 24 hour urine specimen volume measurement 1.80 % > 2.00 Sodium urate/total calculus mass ratio by infrared spectroscopy 149 % < 200 Sulfites [presence] in urine by test strip 32 < 30 Urine phosphate measurement (mass/volume) 1942 % < 1100 Urine magnesium measurement (mass/volume) 87 % > 60 Urine calcium oxalate measurement 2.51 < 2.00 Urine calcium phosphate crystals detection by computer assisted method 0.92 < 2.00 24 hour urine sodium urate (saturation fraction) 0.63 < 2.00 Triple phosphate crystals detection in urine sediment by light microscopy 0.10 < 75.00 24 hour urine uric acid (saturation fraction) 1.44 < 2.00 Urine ammonium measurement 46 % 14-62 Urine potassium measurement 52 % 19-135 24 hour urine creatinine measurement (mass/time) 1777 % 600-1800 Clinical armhole baster jumpbasting review of results See Below [facility] Comprehensive metabolic panel - 04/18/16 11:32 Serum or plasma sodium measurement (moles/volume) 139 mmol/L 135-145 Serum or plasma potassium measurement (moles/volume) 4.2 mmol/L 3.6-5.0 Serum or plasma chloride measurement (moles/volume) 105 mmol/L 98-107 Carbon dioxide 23 mmol/L 21-32 Serum or plasma anion gap determination (moles/volume) 11 mmol/L 5-14 Serum or plasma urea nitrogen measurement (mass/volume) 19 mg/dL 7-18 Serum or plasma creatinine measurement (mass/volume) 0.69 mg/dL 0.60-1.30 Serum or plasma urea nitrogen/creatinine mass ratio 28 NR Serum or plasma creatinine measurement with calculation of estimated glomerular filtration rate > NR Serum or plasma glucose measurement (mass/volume) 116 mg/dL 70-105 Serum or plasma calcium measurement (mass/volume) 9.4 mg/dL 8.5-10.1 Serum or plasma total bilirubin measurement (mass/volume) 0.4 mg/dL 0.1-1.0 Serum or plasma alkaline phosphatase measurement (enzymatic activity/volume) 65 U/L 40-136 Serum or plasma aspartate aminotransferase measurement (enzymatic activity/ volume) 17 U/L 5-34 Serum or plasma alanine aminotransferase measurement (enzymatic activity/volume ) 24 U/L 0-55 Serum or plasma protein measurement (mass/volume) 6.8 g/dL 6.4-8.2 Serum or plasma albumin measurement (mass/volume) 4.2 g/dL 3.2-4.5 Magnesium - 04/18/16 11:32 Magnesium 2.1 mg/dL 1.8-2.4 Complete urinalysis with reflex to culture - 04/04/17 07:10 Urine color determination YELLOW NRG Urine clarity determination CLEAR NRG Urine pH measurement by test strip 6.5 5-9 Specific gravity of urine by test strip 1.015 1.016- 1.022 Urine protein assay by test strip, semi-quantitative NEGATIVE NEGATIVE Urine glucose detection by automated test strip NEGATIVE NEGATIVE Erythrocytes detection in urine sediment by light microscopy 2+ NEGATIVE Urine ketones detection by automated test strip NEGATIVE NEGATIVE Urine nitrite detection by test strip NEGATIVE NEGATIVE Urine total bilirubin detection by test strip NEGATIVE NEGATIVE Urine urobilinogen measurement by automated test strip (mass/volume) NORMAL NORMAL Urine leukocyte esterase detection by dipstick NEGATIVE NEGATIVE Automated urine sediment erythrocyte count by microscopy (number/high power field) [HPF] NRG Automated urine sediment leukocyte count by microscopy (number/high power field ) NONE NRG Bacteria detection in urine sediment by light microscopy NEGATIVE NRG Squamous epithelial cells detection in urine sediment by light microscopy 5-10 NRG Crystals detection in urine sediment by light microscopy NONE NRG Casts detection in urine sediment by light microscopy NONE NRG Mucus detection in urine sediment by light microscopy NEGATIVE NRG Complete urinalysis with reflex to culture NO NRG Automated blood complete blood count (hemogram) panel - 04/04/17 07:27 Blood leukocytes automated count (number/volume) 5.5 10*3/uL 4.3-11.0 Blood erythrocytes automated count (number/volume) 4.10 10*6/uL 4.35-5.85 Venous blood hemoglobin measurement (mass/volume) 12.1 g/dL 11.5-16.0 Blood hematocrit (volume fraction) 36 % 35-52 Automated erythrocyte mean corpuscular volume 89 [foz_us] 80-99 Automated erythrocyte mean corpuscular hemoglobin (mass per erythrocyte) 30 pg 25-34 Automated erythrocyte mean corpuscular hemoglobin concentration measurement ( mass/volume) 33 g/dL 32-36 Automated erythrocyte distribution width ratio 14.1 % 10.0-14.5 Automated blood platelet count (count/volume) 291 10*3/uL 130-400 Automated blood platelet mean volume measurement 8.5 [foz_us] 7.4-10.4 PT panel in platelet poor plasma by coagulation assay - 04/04/17 07:27 Prothrombin time (PT) in platelet poor plasma by coagulation assay 13.2 s 12.2-14.7 INR in platelet poor plasma or blood by coagulation assay 1.0 0.8-1.4 Activated partial thromboplastin time (aPTT) in platelet poor plasma bycoagulation assay - 04/04/17 07:27 Activated partial thromboplastin time (aPTT) in platelet poor plasma bycoagulation assay 26 s 24-35 Comprehensive metabolic panel - 04/04/17 07:27 Serum or plasma sodium measurement (moles/volume) 141 mmol/L 135-145 Serum or plasma potassium measurement (moles/volume) 4.1 mmol/L 3.6-5.0 Serum or plasma chloride measurement (moles/volume) 102 mmol/L 98-107 Carbon dioxide 28 mmol/L 21-32 Serum or plasma anion gap determination (moles/volume) 11 mmol/L 5-14 Serum or plasma urea nitrogen measurement (mass/volume) 22 mg/dL 7-18 Serum or plasma creatinine measurement (mass/volume) 0.77 mg/dL 0.60-1.30 Serum or plasma urea nitrogen/creatinine mass ratio 29 NRG Serum or plasma creatinine measurement with calculation of estimated glomerular filtration rate > NRG Serum or plasma glucose measurement (mass/volume) 153 mg/dL 70-105 Serum or plasma calcium measurement (mass/volume) 9.2 mg/dL 8.5-10.1 Serum or plasma total bilirubin measurement (mass/volume) 0.6 mg/dL 0.1-1.0 Serum or plasma alkaline phosphatase measurement (enzymatic activity/volume) 62 U/L 40-136 Serum or plasma aspartate aminotransferase measurement (enzymatic activity/ volume) 17 U/L 5-34 Serum or plasma alanine aminotransferase measurement (enzymatic activity/volume ) 23 U/L 0-55 Serum or plasma protein measurement (mass/volume) 6.9 g/dL 6.4-8.2 Serum or plasma albumin measurement (mass/volume) 4.0 g/dL 3.2-4.5 Methicillin resistant Staphylococcus aureus (MRSA) screening culture - 07:27 Methicillin resistant Staphylococcus aureus (MRSA) screening culture NEG NRG LIPID PANEL - 06/25/17 12:06 CHOLESTEROL, TOTAL 198 mg/dL <200 HDL CHOLESTEROL 47 mg/dL >50 TRIGLYCERIDES 112 mg/dL <150 LDL-CHOLESTEROL 129 mg/dL (calc) NRG CHOL/HDLC RATIO 4.2 (calc) <5.0 NON HDL CHOLESTEROL 151 mg/dL (calc) <130 CMP - 06/25/17 12:06 GLUCOSE 139 mg/dL 65-99 UREA NITROGEN (BUN) 18 mg/dL 7-25 CREATININE 0.67 mg/dL 0.50-1.05 eGFR NON-AFR. LATVIAN 98 mL/min/1.73m2 > OR=60 eGFR 114 mL/min/1.73m2 > OR=60 BUN/CREATININE RATIO NOT APPLICABLE (calc) 6-22 SODIUM 141 mmol/L 135-146 POTASSIUM 4.2 mmol/L 3.5-5.3 CHLORIDE 104 mmol/L 98-110 CARBON DIOXIDE 23 mmol/L 20-31 CALCIUM 9.3 mg/dL 8.6-10.4 PROTEIN, TOTAL 6.4 g/dL 6.1-8.1 ALBUMIN 4.1 g/dL 3.6-5.1 GLOBULIN 2.3 g/dL (calc) 1.9-3.7 ALBUMIN/GLOBULIN RATIO 1.8 (calc) 1.0-2.5 BILIRUBIN, TOTAL 0.6 mg/dL 0.2-1.2 ALKALINE PHOSPHATASE 62 U/L 33-130 AST 12 U/L 10-35 ALT 16 U/L 6-29 CBC - 06/25/17 12:06 WHITE BLOOD CELL COUNT 5.4 Thousand/uL 3.8-10.8 RED BLOOD CELL COUNT 3.72 Million/uL 3.80-5.10 HEMOGLOBIN 11.2 g/dL 11.7-15.5 HEMATOCRIT 32.8 % 35.0-45.0 MCV 88.2 fL 80.0-100.0 MCH 30.1 pg 27.0-33.0 MCHC 34.1 g/dL 32.0-36.0 RDW 13.7 % 11.0-15.0 PLATELET COUNT 275 Thousand/uL 140-400 MPV 9.0 fL 7.5-12.5 ABSOLUTE NEUTROPHILS 3364 cells/uL 7215-5938 ABSOLUTE LYMPHOCYTES 1512 cells/uL 850-3900 ABSOLUTE MONOCYTES 335 cells/uL 200-950 ABSOLUTE EOSINOPHILS 140 cells/uL 15-500 ABSOLUTE BASOPHILS 49 cells/uL 0-200 NEUTROPHILS 62.3 % NRG LYMPHOCYTES 28.0 % NRG MONOCYTES 6.2 % NRG EOSINOPHILS 2.6 % NRG BASOPHILS 0.9 % NRG TSH - 06/25/17 12:06 TSH 1.81 mIU/L 0.40-4.50 URIC ACID, SERUM - 07/10/17 11:37 URIC ACID 7.7 mg/dL 2.5-7.0 Complete blood count (CBC) with automated white blood cell (WBC) differential - 08/02/17 11:30 Blood leukocytes automated count (number/volume) 5.7 10*3/uL 4.3-11.0 Blood erythrocytes automated count (number/volume) 4.29 10*6/uL 4.35-5.85 Venous blood hemoglobin measurement (mass/volume) 12.8 g/dL 11.5-16.0 Blood hematocrit (volume fraction) 38 % 35-52 Automated erythrocyte mean corpuscular volume 88 [foz_us] 80-99 Automated erythrocyte mean corpuscular hemoglobin (mass per erythrocyte) 30 pg 25-34 Automated erythrocyte mean corpuscular hemoglobin concentration measurement ( mass/volume) 34 g/dL 32-36 Automated erythrocyte distribution width ratio 13.8 % 10.0-14.5 Automated blood platelet count (count/volume) 277 10*3/uL 130-400 Automated blood platelet mean volume measurement 8.6 [foz_us] 7.4-10.4 Automated blood neutrophils/100 leukocytes 53 % 42-75 Automated blood lymphocytes/100 leukocytes 35 % 12-44 Blood monocytes/100 leukocytes 7 % 0-12 Automated blood eosinophils/100 leukocytes 5 % 0-10 Automated blood basophils/100 leukocytes 1 % 0-10 Blood neutrophils automated count (number/volume) 3.0 10*3 1.8-7.8 Blood lymphocytes automated count (number/volume) 2.0 10*3 1.0-4.0 Blood monocytes automated count (number/volume) 0.4 10*3 0.0-1.0 Automated eosinophil count 0.3 10*3/uL 0.0-0.3 Automated blood basophil count (count/volume) 0.0 10*3/uL 0.0-0.1 Comprehensive metabolic panel - 08/02/17 11:30 Serum or plasma sodium measurement (moles/volume) 138 mmol/L 135-145 Serum or plasma potassium measurement (moles/volume) 3.4 mmol/L 3.6-5.0 Serum or plasma chloride measurement (moles/volume) 100 mmol/L 98-107 Carbon dioxide 27 mmol/L 21-32 Serum or plasma anion gap determination (moles/volume) 11 mmol/L 5-14 Serum or plasma urea nitrogen measurement (mass/volume) 18 mg/dL 7-18 Serum or plasma creatinine measurement (mass/volume) 0.76 mg/dL 0.60-1.30 Serum or plasma urea nitrogen/creatinine mass ratio 24 NRG Serum or plasma creatinine measurement with calculation of estimated glomerular filtration rate > NRG Serum or plasma glucose measurement (mass/volume) 219 mg/dL 70-105 Serum or plasma calcium measurement (mass/volume) 9.3 mg/dL 8.5-10.1 Serum or plasma total bilirubin measurement (mass/volume) 0.6 mg/dL 0.1-1.0 Serum or plasma alkaline phosphatase measurement (enzymatic activity/volume) 59 U/L 40-136 Serum or plasma aspartate aminotransferase measurement (enzymatic activity/ volume) 18 U/L 5-34 Serum or plasma alanine aminotransferase measurement (enzymatic activity/volume ) 25 U/L 0-55 Serum or plasma protein measurement (mass/volume) 6.9 g/dL 6.4-8.2 Serum or plasma albumin measurement (mass/volume) 4.2 g/dL 3.2-4.5 Complete urinalysis with reflex to culture - 08/02/17 12:50 Urine color determination YELLOW NRG Urine clarity determination CLEAR NRG Urine pH measurement by test strip 5 5-9 Specific gravity of urine by test strip 1.010 1.016- 1.022 Urine protein assay by test strip, semi-quantitative NEGATIVE NEGATIVE Urine glucose detection by automated test strip NEGATIVE NEGATIVE Erythrocytes detection in urine sediment by light microscopy NEGATIVE NEGATIVE Urine ketones detection by automated test strip NEGATIVE NEGATIVE Urine nitrite detection by test strip NEGATIVE NEGATIVE Urine total bilirubin detection by test strip NEGATIVE NEGATIVE Urine urobilinogen measurement by automated test strip (mass/volume) NORMAL NORMAL Urine leukocyte esterase detection by dipstick NEGATIVE NEGATIVE Automated urine sediment erythrocyte count by microscopy (number/high power field) NONE NRG Automated urine sediment leukocyte count by microscopy (number/high power field ) NONE NRG Bacteria detection in urine sediment by light microscopy NEGATIVE NRG Squamous epithelial cells detection in urine sediment by light microscopy RARE NRG Crystals detection in urine sediment by light microscopy NONE NRG Casts detection in urine sediment by light microscopy NONE NRG Mucus detection in urine sediment by light microscopy NEGATIVE NRG Complete urinalysis with reflex to culture NO NRG Encounters ACCT No. Visit Date/Time Discharge Status Pt. Type Provider Facility Loc./Unit Complaint [id number] 08/26/2014 08:16:00 08/26/2014 23:59:59 CLS Outpatient LASHAWN ALVAREZ APRCapri CHANDU Capri [id number] 06/11/2014 13:36:00 06/11/2014 23:59:59 CLS Outpatient 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 APRN [id number] 05/18/2014 15:59:00 05/18/2014 23:59:59 CLS Outpatient KELLEY AIDAN ADAMS [id number] 02/13/2014 16:00:00 02/13/2014 23:59:59 CLS Outpatient 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 APRN [id number] 02/02/2014 07:30:00 02/02/2014 23:59:59 CLS Outpatient GINA COLIN DO [id number] 12/17/2013 08:38:00 12/17/2013 23:59:59 CLS Outpatient 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 APRN [id number] 10/03/2013 09:00:00 10/03/2013 23:59:59 CLS Outpatient KEN DALY APRN [id number] 09/19/2013 15:03:00 09/19/2013 23:59:59 CLS Outpatient 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 APRN [id number] 08/12/2013 17:15:00 08/12/2013 23:59:59 CLS Outpatient LUIZ LEGER MD [id number] 08/04/2013 11:12:00 08/04/2013 23:59:59 CLS Outpatient KEN DALY APRN [id number] 06/23/2013 09:12:00 06/23/2013 23:59:59 CLS Outpatient 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 APRN [id number] 05/14/2013 13:53:00 05/14/2013 23:59:59 CLS Outpatient 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 APRN [id number] 04/25/2013 14:09:00 04/25/2013 23:59:59 CLS Outpatient 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 APRN [id number] 04/11/2013 13:47:00 04/11/2013 23:59:59 CLS Outpatient 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 APRN [id number] 03/03/2013 09:57:00 03/03/2013 23:59:59 CLS Outpatient 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 APRN [id number] 02/05/2013 08:33:00 02/05/2013 23:59:59 CLS Outpatient 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 APRN [id number] 05/28/2012 14:40:00 05/28/2012 23:59:59 CLS Outpatient KEN DALY APRN [id number] 05/10/2012 14:28:00 05/10/2012 23:59:59 CLS Outpatient NATO PARADA APRN Bob [id number] 04/19/2012 13:26:00 04/19/2012 23:59:59 CLS Outpatient [id number] 04/04/2012 11:44:00 04/04/2012 23:59:59 CLS Outpatient [id number] 04/04/2012 11:44:00 04/04/2012 23:59:59 CLS Outpatient [id number] 12/09/2012 08:40:00 Document Registration [id number] 08/13/2014 05:02:29 ACT Document Registration [id number] 07/10/2017 11:20:00 07/10/2017 23:59:59 CLS Outpatient KEN DALY APRN [facility] [id number] 07/10/2017 11:20:00 Document Registration [id number] 06/25/2017 11:40:00 Document Registration [id number] 08/09/2017 08:15:00 08/09/2017 23:59:59 CLS Preadmit JAYSON MARI, NOHEMY Mcclendon [facility] RAD LIVER MASS [id number] 08/09/2017 05:36:00 08/09/2017 11:14:00 DIS Outpatient NOHEMY TYLER MD [facility] PREOP RIGHT RENAL STONE [id number] 08/06/2017 12:14:00 08/06/2017 23:59:59 CLS Outpatient NOHEMY TYLER MD [facility] RAD URETERAL STONE [id number] 08/02/2017 11:15:00 08/02/2017 14:18:00 DIS Emergency ALCALATRISTAN COMMUTER TRAIN OPERATOR [facility] ER POSS KIDNEY STONE [id number] 04/04/2017 06:42:00 04/04/2017 15:02:00 DIS Outpatient DRU LINDO MD [facility] CATH CAD,CP,ABN STRESS SOB [id number] 02/26/2017 10:28:00 02/26/2017 23:59:59 CLS Outpatient DRU LINDO MD [facility] LAB I25.10 I10 I49.5 [id number] 01/22/2017 07:29:00 01/22/2017 23:59:59 CLS Outpatient JEWEL OROZCO [facility] CARD I25.10 [id number] 12/29/2016 08:11:00 12/29/2016 23:59:59 CLS Outpatient JEWEL OROZCO [facility] CARD I25.10 [id number] 05/01/2016 00:09:00 05/01/2016 23:59:59 CLS Preadmit NOHEMY TYLER MD [facility] LAB RENAL STONES [id number] 02/01/2016 08:37:00 04/30/2016 00:01:00 DIS Outpatient NOHEMY TYLER MD [facility] LAB RENAL STONES [id number] 04/18/2016 11:20:00 04/18/2016 23:59:59 CLS Outpatient 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 B AND B GANG WORKER [facility] LAB BRADYCARDIA,DIZZINESS ,HYERTENSION [id number] 01/31/2016 17:30:00 01/31/2016 23:59:59 CLS Outpatient GUICHO MARI, DRU Aguero [facility] LAB HYPERLIPIDEMIA [id number] 01/17/2016 17:56:00 01/17/2016 23:59:59 CLS Outpatient YANA SCHMITZ APRN [facility] RAD RIGHT FLANK PAIN, HISTORY OF RENAL CALCULI [id number] 11/22/2015 03:52:00 11/22/2015 05:20:00 DIS Emergency JESSENIA DO, ERNESTINA K [facility] ER R ELBOW PAIN [id number] 07/12/2015 00:08:00 07/12/2015 23:59:59 CLS Preadmit NOHEMY TYLER MD [facility] LAB STONES [id number] 04/14/2015 08:05:00 07/11/2015 00:01:00 DIS Outpatient JAYSON MARI, NOHEMY Mcclendon [facility] LAB STONES [id number] 05/27/2015 05:34:00 05/27/2015 07:35:00 DIS Emergency BENJI BROWN MD [facility] ER FALL,HEAD TRAUMA [id number] 05/16/2015 06:27:00 05/16/2015 08:46:00 DIS Emergency ASHOK MARI, GABRIELA Hoyt [facility] ER POSS KIDNEY STONES [id number] 03/19/2015 19:50:00 03/19/2015 22:39:00 DIS Emergency MARI AMARO MD [facility] ER POSS KIDNEY STONES [id number] 03/15/2015 07:02:00 03/15/2015 23:59:59 CLS Outpatient DRU LINDO MD [facility] CARD CAD,HTN,SSS [id number] 03/09/2015 20:35:00 03/10/2015 16:40:00 DIS Outpatient VELIA ARDON MD [facility] RIGHT URETERAL STONE INTRACTABLE N/V [id number] 03/08/2015 12:17:00 03/08/2015 23:59:59 CLS Outpatient DRU LINDO MD [facility] CARD CAD,HTN,SSS,SYNCOPE,HLP [id number] 08/12/2014 15:55:00 08/12/2014 23:59:59 CLS Outpatient ANTONIO MORALES [facility] OCC FELL FROM CHAIR [id number] 06/22/2014 09:44:00 06/22/2014 23:59:59 CLS Outpatient KELLEY AIDANMICHAEL Mcclendon APRN [facility] RAD SCREENING [id number] 06/10/2014 10:36:00 06/10/2014 13:02:00 DIS Emergency BENJI BROWN MD [facility] ER PAIN DOWN LEFT LEG [id number] 11/06/2013 08:45:00 11/11/2013 15:19:00 DIS Outpatient 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 [facility] REHAB LEFT ANKLE WEAKNESS [id number] 07/08/2013 15:15:00 07/11/2013 16:37:00 DIS Outpatient MARIAELENA MAGUIRE [facility] REHAB L KNEE SYNOVECTOMY GRADE 3 CM [facility] [id number] 07/02/2013 17:10:00 07/03/2013 10:37:00 DIS Outpatient LUIZ LEGER MD [facility] CATH CHEST PAIN [id number] 05/26/2013 07:11:00 05/26/2013 23:59:59 CLS Outpatient JEWEL OROZCO [facility] RAD CAD,COPD,HTN [id number] 05/19/2013 07:45:00 05/19/2013 23:59:59 CLS Outpatient JEWEL OROZCO [facility] CARD CAD,COPD, HTN [id number] 03/10/2013 15:30:00 03/19/2013 13:24:00 DIS Outpatient MARIAELENA MAGUIRE [facility] REHAB L KNEE PAIN [id number] 09/03/2012 06:50:00 09/03/2012 23:59:59 CLS Outpatient SARAHI RUIZ [employer] GANG WORKER [facility] LAB HTN,HLP [id number] 08/14/2017 11:30:00 TIMMY TYLER MD, NOHEMY [place]man [facility] RIGHT RENAL STONE [id number] 07/21/2014 12:53:00 Document Registration [id number] 05/13/2012 06:42:00 Document Registration [id number] 11/13/2011 07:38:00 Document Registration [id number] 07/12/2011 11:06:00 Document Registration [id number] 06/29/2011 07:59:00 Document Registration [id number] 06/28/2011 11:02:00 Document Registration [id number] 06/26/2011 11:20:00 Document Registration [id number] 06/21/2011 22:00:00 Document Registration [id number] 06/05/2011 07:51:00 Document Registration [id number] 03/01/2011 11:58:00 Document Registration [id number] 02/22/2011 06:51:00 Document Registration [id number] 08/22/2010 09:40:00 Document Registration [id number] 03/04/2010 17:08:00 Document Registration [id number] 02/03/2010 20:52:00 Document Registration [id number] 01/26/2010 09:50:00 Document Registration [id number] 01/25/2010 08:19:00 Document Registration
[2017-08-14] MEDS ORDERED: SCOPOLAMINE 1.5 MG (TRANSDERM-SCOP) PATCH TD ONE (07:30)
[2017-08-14] MEDS ORDERED: ONDANSETRON 4 MG/2 ML (SDV) Z0FRAN IVP ONE ×2 (07:30→11:00)
[2017-08-14] MEDS ORDERED: FAMOTIDINE 20MG/2ML IV (PEPCID) IVP ONE (07:30)
[2017-08-14] MEDS ORDERED: ONDANSETRON 4 MG/2 ML (SDV) Z0FRAN ONE ×2 (07:37→09:32)
[2017-08-14] MEDS ORDERED: SCOPOLAMINE 1.5 MG (TRANSDERM-SCOP) PATCH ONE (07:37)
[2017-08-14] MEDS ORDERED: LEVOFLOXACIN 250 MG/50 ML IVPB 50 ML ONE (07:38)
[2017-08-14] MEDS ORDERED: CATHETER FLUSH 10 ML SYR IV PRN (07:45)
--- NOTE | 2017-08-14 07:47 | Diagnostic Imaging Report ---
INDICATION: Preop evaluation for lithotripsy. COMPARISON: 08/01/2017. FINDINGS: There are multiple hyperdensities within the right renal fossa compatible with known renal stones. Nonobstructive bowel gas pattern. Degenerative changes in the hips are seen. Partially imaged pacemaker leads. IMPRESSION: 1. Right-sided renal calculi are noted. Dictated by: Dictated on workstation # [id number]
[2017-08-14] MEDS: LACTATED RINGERS 1,000 ML IV PRN ×2 (07:58→09:25)
[2017-08-14] MEDS ORDERED: MIDAZOLAM 2 MG/2 ML (VERSED) VIAL ONE (08:50)
[2017-08-14] MEDS ORDERED: proPOfol 200 MG/20 ML (DIPRIVAN) VIAL IV ONE (08:50)
[2017-08-14] MEDS ORDERED: LIDOCAINE PF 2% 5 ML (XYLOCAINE) VIAL ONE (08:50)
[2017-08-14] MEDS ORDERED: fentaNYL INJECTION 100 MCG/2 ML AMP ONE (08:52)
--- NOTE | 2017-08-14 09:07 | Progress Note-Post Operative ---
Post-Operative Progess Note Surgeon (s)/Buffer Chrome (s) Surgeon NOHEMY TYLER MD Buffer Chrome: N/A Pre-Operative Diagnosis RT RENAL STONE Post-Operative Diagnosis SAME Procedure & Operative Findings Date of Procedure 08/14/17 Procedure Performed/Findings RT ESWL Anesthesia Type GENERAL Estimated Blood Loss Estimated blood loss (mL): N/A Specimens/Packing Specimens Removed N/A Packing: N/A NOHEMY TYLER MD Aug 14, 2017 9:07 am
--- NOTE | 2017-08-14 09:09 | Discharge Inst-Urology ---
Discharge Inst-Urology Discharge Medications New, Converted, or Re-newed RX: RX on Chart Patient Instructions/Follow Up Plan Please make appointment to been seen in office in 2 weeks. KUB prior to it KUB on way home Post ESWL instructions Increase oral fluids for 48 hours and then as needed. Diet and Activity as tolerated. If questions or concerns contact your physician Or seek help at emergency department. NOHEMY TYLER MD Aug 14, 2017 9:09 am
[2017-08-14] MEDS ORDERED: FUROSEMIDE 40 MG/4 ML INJ (LASIX) ONE (09:17)
[2017-08-14] MEDS ORDERED: SEVOFLURANE (ULTANE) 15 ML INHAL SOLN ONE (09:31)
[2017-08-14] MEDS ORDERED: KETOROLAC 30 MG/ML VIAL ONE (09:31)
[2017-08-14] MEDS ORDERED: DEXAMETHASONE 10 MG/ML (DECADRON) 1 ML VIAL ONE (09:32)
[2017-08-14] MEDS ORDERED: ONDANSETRON 4 MG/2 ML (SDV) Z0FRAN IVP PRN (09:45)
[2017-08-14] MEDS ORDERED: HYDROmorphone (DILAUDID) 2 MG/ML VIAL IVP PRN (09:45)
[2017-08-14] MEDS ORDERED: morphine INJ 10 MG/ML 1ML (SYR OR VIAL) IVP PRN (09:45)
--- NOTE | 2017-08-14 10:15 | Anesthesia-General Post-Op ---
General Patient Condition Mental Status/LOC: Same as Preop Cardiovascular: Satisfactory Nausea/Vomiting: Absent Respiratory: Satisfactory Pain: Controlled Complications: Absent Post Op Complications Complications None Follow Up Care/Instructions Patient Instructions None needed. Anesthesia/Patient Condition Patient Condition Patient is doing well, no complaints, stable vital signs, no apparent adverse anesthesia problems. No complications reported per nursing. JULIEN KINNEY CRNA Aug 14, 2017 10:15
[2017-08-14 10:20] VITALS: BP 122/58
[2017-08-14 10:50] VITALS: BP 136/67
[2017-08-14] MEDS ORDERED: ACETAMINOPHEN 500 MG TAB (TYLENOL) PO ONE (11:00)
[2017-08-14] MEDS ORDERED: NITR-65 PO (11:11)
[2017-08-14] MEDS ORDERED: HYDR-3870 PO (11:11)
[2017-08-14] MEDS ORDERED: TAMS0.4C98 PO (11:11)
--- NOTE | 2017-08-14 11:17 | Diagnostic Imaging Report ---
INDICATION: Status post ESWL. COMPARISON: Earlier the same day. FINDINGS: Two supine radiographic views of the abdomen were obtained. Right-sided nephrolithiasis is again identified. There is no appreciable significant interval change but evaluation is somewhat suboptimal secondary to overlying soft tissue attenuation. No unexpected radiopaque foreign bodies are seen. The small bowel loops are nondistended. There is no large collection of free intraperitoneal air. IMPRESSION: 1. Persistent right-sided nephrolithiasis as described above. 2. Nonobstructed small bowel gas pattern. Dictated by: Dictated on workstation # [id number]
[2017-08-14 11:35] VITALS: BP 143/70
[2017-08-14 12:00] VITALS: BP 143/70
--- NOTE | 2017-08-14 14:28 | OPERATIVE REPORT ---
DATE OF SERVICE: 08/14/2017 PREOPERATIVE DIAGNOSIS: Right renal stones. POSTOPERATIVE DIAGNOSIS: Right renal stones. OPERATION PERFORMED: Right ESWL. SURGEON: Arun Tyler MD ANESTHESIA: General. COMPLICATIONS: None. DESCRIPTION OF PROCEDURE: Under satisfactory general anesthesia, the patient in supine position on the ESWL table, the right renal stones were localized. Shocks were delivered at kV of 5, a total of 2000 shocks. We could not see any more stones. The patient received 40 mg of Lasix and 30 mg of Toradol at the end of the procedure. She tolerated the procedure and anesthesia well and was sent to recovery room in stable condition. Job ID: [id number] DocumentID: [id number] Dictated Date: 08/14/2017 09:20:20 Social Worker Assistant Date: 08/14/2017 14:27:47 Dictated By: ARUN TYLER MD
== END 2017-08-14 12:00 | disposition home or self-care (01) ==
LOC: SDC 06:59
PROVIDERS: ATTEND Urology
DX: N20.0 Calculus of kidney (principal); I25.10 Atherosclerotic heart disease of native coronary artery without angina pectoris; I10 Essential (primary) hypertension; E78.00 Pure hypercholesterolemia, unspecified; J44.9 Chronic obstructive pulmonary disease, unspecified; G47.33 Obstructive sleep apnea (adult) (pediatric); F32.9 Major depressive disorder, single episode, unspecified; E66.01 Morbid (severe) obesity due to excess calories; Z68.42 Body mass index [BMI] 45.0-49.9, adult; Z79.82 Long term (current) use of aspirin; Z79.899 Other long term (current) drug therapy; Z95.0 Presence of cardiac pacemaker
CPT/HCPCS: 74018; 87081

== ENCOUNTER → 2017-08-30 | Outpatient (CLI) | payer BC ==
[~2017-08-30] MED LIST changes: +CATHETER FLUSH 10 ML SYR IV PRN; +HYDR-3870 PO; +IOHEXOL 350 MG/ML 100 ML (OMNIPAQUE 350) VIAL IV ONE; +NITR-65 PO; +NS 250 ML (IVPB) BAG IV ONE; +RECEIVED CONTRAST (Hold Metformin) IV SCH
--- NOTE | 2017-08-30 15:33 | Diagnostic Imaging Report ---
PROCEDURE: CT abdomen with contrast only. TECHNIQUE: Multiple contiguous axial images were obtained through the abdomen after the administration of intravenous contrast. INDICATION: Questionable liver mass noted on noncontrast CT from 08/02/2017. The study is performed for further evaluation. FINDINGS: The heart is enlarged. The lung bases are clear. There is an area of persistent low density in the right lobe immediately anterior to the right portal vein corresponding with previously noted abnormality. This measures 2.6 cm. This is present on the arterial and portal venous phase. This is also seen on the delayed images. No other liver lesion is seen. Pancreas and spleen are unremarkable. No adrenal mass is identified. Right kidney is hydronephrotic. Previously noted calculi on the right remain in place. Aorta is nonaneurysmal. There is no ascites. Bowel loops are unremarkable. IMPRESSION: Persistent area of low density in the right lobe of the liver, remaining indeterminate between a true mass versus an area of perhaps focal fatty infiltration. Liver ultrasound should be attempted for further characterization, as patient can unlikely undergo MRI due to a pacemaker. Dictated by: Dictated on workstation # [id number]
== END ==
LOC: RAD 14:19
PROVIDERS: ATTEND Urology
DX: K76.9 Liver disease, unspecified (principal)
CPT/HCPCS: 74160

== ENCOUNTER 2017-09-06 16:28 | Emergency (ER) | payer BC ==
[~2017-09-06] VITALS: Ht 165.1 cm; Wt 113.4 kg
[~2017-09-06 16:28] MED LIST changes: -CATHETER FLUSH 10 ML SYR IV PRN; -IOHEXOL 350 MG/ML 100 ML (OMNIPAQUE 350) VIAL IV ONE; -NS 250 ML (IVPB) BAG IV ONE; -RECEIVED CONTRAST (Hold Metformin) IV SCH
--- OUTSIDE RECORDS SUMMARY | 2017-09-06 16:34 | XMS REPORT ---
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 341265087 Problem Hx of cardiac pacemaker Z95.0 Active 037509960 Problem Hypertension I10 Active [id number] ALLERGIES No Information ENCOUNTERS Encounter Location Date Diagnosis [facility] [id number] [place] [id number] Aug, Dermatitis L30.9 [facility] [id number] [place] [address]44- 1209 Jul, [facility] [id number] [place] [address] 67498- 1580 Jul, 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 and High risk medication use Z79.899 [facility] [id number] [place] [address] 83201- 6471 Jul, [facility] [id number] [place] [address] 09967- 6141 Jul, Arthralgia of left hand M25.542 ; Pain in right foot M79.671 and Pain of left foot M79.672 [facility] [id number] [place] [address] [id number] Jul, Arthralgia of left hand M25.542 ; Pain in right foot M79.671 and Pain of left foot M79.672 [facility] [id number] [place] [address] 15847- 6643 19 Jun, 2017 BMI 45.0-49.9, adult Z68.42 ; Hx of cardiac pacemaker Z95.0 and Hypertension I10 [address] [address]- [address] 12 Jun, 2017 BMI 45.0-49.9, adult Z68.42 ; Hx of cardiac pacemaker Z95.0 and Hypertension I10 [address] [address]- [address] Mar, [place] [address] [id number] Mar, 2017 Cough R05 ; Acute bronchitis J20.9 and BMI 40.0-44.9, adult Z68.[address] [id number] 27 Feb, 2017 Bronchitis J40 and Shortness of breath R06.[address] [address]- [address]690 16 Feb, [address] [id number] 15 Jan, 2017 Encounter for immunization Z23 [address] [address]- [address]79 10 Aug, 2016 Pain in right leg M79.[address] [address]- 2820 06 Jul, 2016 Cramps of left lower extremity R25.[address] [id number] 02 Jun, 2016 Cough in adult patient R05 and Acute maxillary sinusitis, recurrence not specified J01.[address] [id number] 13 Apr, 2016 Dizziness R42 ; Elevated blood pressure reading R03.0 and Hx of cardiac pacemaker Z95.[address] [id number] Feb, Encounter for immunization Z23 [facility] [address] [address] Jan, Right flank pain R10.9 and History of renal calculi Z87.442 [place] [address] [address]- 7271 Dec, Contusion of elbow, right S50.01XA and Contusion of knee, right S80.01XA [place] [address] [address]36- 5679 Nov, Contusion of elbow, right S50.01XA and Contusion of knee, right S80.01XA [facility] [address] [address] Jul, Leg cramps R25.2 [place] [address] [address]95- 2182 Jul, [place] [address] [address]- 0246 Jul, [place] [address] [address]- 7913 Jul, Hypertension I10 and Calculus of kidney N20.0 [place] [address] 11916- 1252 Jul, Hypertension I10 [facility] [address] [id number] Jun, Pneumonia J18.9 [place] [address] [address]- 0215 Feb, Encounter for immunization Z23 [place] [address] [address]- [address] Dec, Arthritis 716.90 [place] [address] [address]60- 8292 Nov, [facility] [place] [facility] [address] [id number] [place] [address]- 1533 14 Aug, 2014 [facility] [place] [facility] [address] [id number] [place] [address]- 9559 Aug, [facility] [place] [facility] [address] [id number] [place] [address]- 7301 Jul, [facility] [place] [facility] [address] [id number] [place] [address]- 0065 Jul, [facility] [place] [facility] [address] [id number] [place] [address]- 3497 Jul, [facility] [place] [facility] [address] [id number] [place] [address]- 8914 Jul, [facility] [place] [facility] [address] [id number] [place] [address]- 9402 Jul, [facility] [place] [facility] [address] [id number] [place] [address]- 6794 Jul, [facility] [place] [facility] [address] [id number] [place] [address]- 2740 Jul, [facility] [place] [facility] [address] [id number] [place] [address]- 1154 Jul, [facility] [place] [facility] [address] [id number] [place] [address]- 1825 Jun, [facility] [place] [facility] [address] [id number], [place] [address]- 2309 Jun, [facility] [place] [facility] [address] [id number] [place] [address]- 5235 Jun, [facility] [place] [facility] [address] [id number] [place] [address]- 4536 Jun, [facility] [place] [facility] [address] [id number] [place] [address]- 8715 Jun, [facility] [place] [facility] [address] [id number] [place] [address]- 6117 16 Jun, 2014 [facility] [address] [id number] [place] [address]- 9322 Jun, [facility] [place] [facility] [address] [id number] [place] [address]- 6805 Jun, [facility] [place] [facility] [address] [id number] [place] [address]- 8686 May, [facility] [place] [facility] [address] [id number] [place] [address]- 5405 May, [facility] [place] [facility] [address] [id number] [place] [address]- 7915 May, [facility] [place] [facility] [address] [id number] [place] [address]- 6337 May, [facility] [place] [facility] [address] [id number] [place] [address]- 5933 May, [facility] [place] [facility] [address] [id number] [place] [address]- 5311 May, [facility] [place] [facility] [address] [id number] [place] [address]- 9479 May, [facility] [place] [facility] [address] [id number] [place] [address]- 1031 May, [facility] [place] [facility] [address] [id number] [place] [address]- 1627 May, [facility] [place] [facility] [address] [id number] [place] [address]- 2693 May, [facility] [place] [facility] [address] [id number] [place] [address]- 9842 May, [facility] [place] [facility] [address] [id number] [place] [address]- 7365 Mar, [facility] [place] [facility] [address] [id number] [place] [address] Mar, [facility] [place] [facility] [address] [id number] [place] [address]- 1730 Feb, [facility] [place] [facility] [address] [id number] [place] [address]- 4471 Feb, [facility] [place] [facility] [address] [id number] [place] [address]- 1117 Feb, [facility] [place] [facility] [address] [id number] [place] [address]- 9880 Feb, [facility] [place] [facility] [address] [id number] [place] [address]- 3541 Feb, [facility] [place] [facility] [address] [id number] [place] [address]- 3159 Feb, [facility] [place] [facility] [address] [id number] [place] [address]- 4471 30 Jan, 2014 [facility] [place] [facility] [address] [id number] [place] [address]- 0244 30 Jan, 2013 [facility] [place] [facility] [address] [id number] [place] [address]- 5247 29 Jan, 2013 [facility] [place] [facility] [address] [id number] [place] [address]- 7807 29 Jan, 2013 [facility] [place] [facility] [address] [id number], [place] [address]- 4681 24 Jan, 2013 [facility] [place] [facility] [address] [id number], [place] [address]- 8039 24 Jan, 2013 [facility] [place] [facility] [address] [id number] [place] [address]- 2540 24 Jan, 2013 [facility] [place] [facility] [address] [id number] [place] [address]- 3016 24 Jan, 2013 [facility] [place] [facility] [address] [id number], [place] [address]- 2796 03 Jan, 2013 [facility] [place] [facility] [address] [id number], [place] [address]- 0948 Jan, [facility] [place] [facility] [address] [id number] [place] [address]- 6579 Dec, [facility] [place] [facility] [address] [id number] [place] [address]- 8951 Dec, [facility] [place] [facility] [address] [id number] [place] [address]- 2000 Dec, [facility] [place] [facility] [address] [id number] [place] [address]- 6038 Dec, [facility] [place] [facility] [address] [id number] [place] [address]- 2935 Dec, [facility] [place] [facility] [address] [id number] [place] [address]- 3080 Dec, [facility] [place] [facility] [address] [id number] [place] [address]- 4105 Dec, [facility] [place] [facility] [address] [id number] [place] [address]- 8761 Dec, [facility] [place] [facility] [address] [id number] [place] [address]- 9914 Oct, [facility] [place] [facility] [address] [id number] [place] [address]- 7402 Oct, [facility] [place] [facility] [address] [id number] [place] [address]- 7471 September, [facility] [place] [facility] [address] [id number] [place] [address]- 4843 September, [facility] [place] [facility] [address] [id number] [place] [address]- 1079 September, [facility] [place] [facility] [address] [id number] [place] [address]- 4512 September, [facility] [place] [facility] [address] [id number] [place] [address]- 4138 Aug, [facility] [place] [facility] [address] [id number] [place] [address]- 9699 Aug, [facility] [place] [facility] [address] [id number] [place] [address]- 0918 Aug, [facility] [place] [facility] [address] [id number] [place] [address]- 5576 Aug, [facility] [place] [facility] [address] [id number] [place] [address]- 6263 Jul, [facility] [place] [facility] [address] [id number] [place] [address]- 5654 Jul, [facility] [place] [facility] [address] [id number] [place] [address]- 6146 Jun, [facility] [place] [facility] [address] [facility] [id number] [place] 8577 Jun, [facility] [place] [facility] [address] [id number] [place] [address]- 7437 Jun, [facility] [place] [facility] [address] [id number] [place] [address]- 6350 Jun, [facility] [place] [facility] [address] [facility] [id number] [place] [address]- 2314 Jun, [facility] [place] [facility] [address] [facility] [id number] [place] [address]- 6402 Jun, [facility] [place] [facility] [address] [id number] [place] [address]- 4574 May, [facility] [place] [facility] [address] [id number] [place] 2914 May, [facility] [place] [facility] [address] [id number] [place] [address]- 9054 Apr, [facility] [place] [facility] [address] [id number] [place] [address]- 2388 Apr, [facility] [place] [facility] [address] [facility] [id number] [place] [address]- 9207 Apr, [facility] [place] [facility] [address] [id number] [place] [address]- 3826 Apr, [facility] [place] [facility] [address] [id number] [place] [address] Apr, [facility] [place] [facility] [address] [id number] [place] [address]- 8654 Apr, [facility] [place] [facility] [address] [id number] [place] [address]- 5498 Apr, [facility] [place] [facility] [address] [id number] [place] [address]- 2860 Apr, [facility] [place] [facility] [address] [id number] [place] [address]- 9156 Mar, [facility] [place] [facility] [address] [id number] [place] [address]- 6800 Mar, [facility] [place] [facility] [address] [id number] [place] [address]- 8058 Feb, [facility] [place] [facility] [address] [id number] [place] [address]- 9604 Feb, [facility] [place] [facility] [address] [id number] [place] [address]- 3616 Feb, [facility] [place] [facility] [address] [id number] [place] [address]- 3920 Jan, [facility] [place] [facility] [address] [id number] [place] [address]- 0295 Dec, [facility] [place] [facility] [address] [id number] [place] [address]- 4057 Dec, [facility] [place] [facility] [address] [id number] [place] [address]- 6647 Dec, [facility] [place] [facility] [address] [id number] [place] [address]- 7252 Dec, [facility] [place] [facility] [address] [id number] [place] [address]- 1050 Nov, [facility] [address] [id number] [place] [address]- 9087 September, [facility] [place] [facility] [address] [id number] [place] [address] 2546 September, [facility] [address] [id number] [place] [address]- 4966 Jun, [facility] [place] [facility] [address] [id number] [place] [address]- 1678 Jun, [facility] [address] [id number] [place] [address]- 6004 Jun, [facility] [address] [id number] [place] [address]- 3978 May, [facility] [address] [id number] [place] [address]- 8907 May, [facility] [address] [id number] [place] [address]- 0446 May, [facility] [address] [id number] [place] [address]- 7966 Apr, [facility] [address] [id number] [place] [address]- 0814 Apr, [facility] [address] [id number] [place] [address]- 7245 Apr, [facility] [address] [id number] [place] [address]- 6122 Apr, [facility] [place] [facility] [address] [id number] [place] [address]- 3006 Apr, [facility] [place] [facility] [address] [id number] [place] [address]- 6811 Mar, [facility] [place] [facility] [address] [id number] [place] [address]- 9861 Mar, [facility] [place] [facility] [address] [id number] [place] [address]- 2591 Feb, [facility] [place] [facility] [address] [id number] [place] [address]- 4049 Feb, [facility] [place] [facility] [address] [facility] [id number] [place] [address]- 2456 Oct, [facility] [place] [facility] [address] [id number] [place] [address]- 1164 Oct, [facility] [place] [facility] [address] [id number] [place] [address]- 6661 Oct, [facility] [place] [facility] [address] [id number] [place] [address]- 1346 Oct, [facility] [place] [facility] [address] [id number] [place] [address]- 1056 Oct, [facility] [place] [facility] [address] [id number], [place] [address]- 2319 September, [facility] [place] [facility] [address] [id number] [place] [address]- 7172 September, [facility] [place] [facility] [address] [id number] [place] [address]- 8173 Aug, [facility] [place] [facility] [address] [id number], [place] [address]- 3645 Aug, [facility] [place] [facility] [address] [id number], [place] [address]- 5171 Aug, [facility] [place] [facility] [address] [id number] [place] [address]- 2790 Jul, [facility] [place] [facility] [address] [id number], [place] [address]- 5211 Apr, [facility] [place] [facility] [address] [id number] [place] [address]- 6481 Mar, [facility] [place] [facility] [address] [facility] [id number] [place] [address]- 2714 Apr, [facility] [address] [facility] [id number], [place] [address]- 3364 Apr, [facility] [address] [id number], [place] [address]- 2859 Mar, [facility] [address] [facility] [id number], [place] [address]- 5418 Feb, [facility] [address] [id number], [place] [address] Nov, [facility] [address] [facility] [id number], [place] [address] Mar, [facility] [address] [id number], [place] [address] Jun, IMMUNIZATIONS Vaccine Route Administration Date Status FLUARIX QUAD (3 AND UP) 2017 IM Intramuscular Jan 19, 2017 Administered SOCIAL HISTORY Never Assessed REASON FOR VISIT Flu shot Lalito KLINE PLAN OF CARE VITAL SIGNS MEDICATIONS No Known Medications RESULTS No Results PROCEDURES Procedure Date Ordered Result Body Site FLUARIX QUAD (3 & UP)--2014Jan 19, 2017 SINGLE IMMUNIZATION ADMIN Jan 19, 2017 INSTRUCTIONS MEDICATIONS ADMINISTERED No Known Medications MEDICAL (GENERAL) HISTORY Type Description Date Medical History HTN Medical History pacemaker Medical History bradychardia Medical History COPD Medical History sleep apnea Medical History gout Medical History kidney stones Surgical History pacemaker Surgical History bilateral carpal tunnel Surgical History left ankle ligament repair Surgical History scope on right knee Surgical History kidney stone removal Surgical History cardiac cath, no stents needed 03/2017 Hospitalization History surgeries Hospitalization History kidney stone 05/2017
--- OUTSIDE RECORDS SUMMARY | 2017-09-06 16:39 | XMS REPORT | Continuity of Care Document ---
Author Author [facility] Address Unknown Phone Unavailable Allergies Active Description Code Type Severity Reaction Onset Reported/Identified Relationship to Patient Clinical Status Yes Penicillins Drug Allergy 06/12/2008 Yes Penicillins Drug Allergy N/A N/A 06/12/2008 Yes NKANo Known Allergies NKA Miscellaneous Allergy Mild N/A 09/04/2008 Yes Penicillins [id number] Drug Allergy Mild N/A 09/30/2008 Medications There [...] APRN 250.02 DIABETES II UNCONTROLLED 11/11/2007 RAJOTTE FUR FARMER, ANTONIO A 272.4 HYPERLIPIDEMIA UNSPECIFIED 11/11/2007 RAJOTTE FUR FARMER, ANTONIO A 401.1 HYPERTENSION, BENIGN ESSENTIAL 11/11/2007 RAJOTTE FUR FARMER, ANTONIO A 458.0 ORTHOSTATIC HYPOTENSION 11/11/2007 RAJOTTE FUR FARMER, ANTONIO A 250.02 DIABETES II UNCONTROLLED 11/11/2007 RAJOTTE FUR FARMER, ANTONIO A 272.4 HYPERLIPIDEMIA UNSPECIFIED 11/11/2007 RAJOTTE FUR FARMER, ANTONIO A 401.1 HYPERTENSION, BENIGN ESSENTIAL 11/11/2007 RAJOTTE FUR FARMER, ANTONIO A 458.0 ORTHOSTATIC HYPOTENSION 11/11/2007 RAJOTTE FUR FARMER, ANTONIO A 250.02 DIABETES II UNCONTROLLED 11/11/2007 RAJOTTE FUR FARMER, ANTONIO A 272.4 HYPERLIPIDEMIA UNSPECIFIED 11/11/2007 RAJOTTE FUR FARMER, ANTONIO A 401.1 HYPERTENSION, BENIGN ESSENTIAL 11/11/2007 RAJOTTE FUR FARMER, ANTONIO A 458.0 ORTHOSTATIC HYPOTENSION 11/11/2007 RAJOTTE FUR FARMER, ANTONIO A 250.02 DIABETES II UNCONTROLLED 11/11/2007 RAJOTTE FUR FARMER, ANTONIO A 272.4 HYPERLIPIDEMIA UNSPECIFIED 11/11/2007 RAJOTTE FUR FARMER, ANTONIO A 401.1 HYPERTENSION, BENIGN ESSENTIAL 11/11/2007 RAJOTTE FUR FARMER, ANTONIO A 458.0 ORTHOSTATIC HYPOTENSION 11/11/2007 RAJOTTE FUR FARMER, ANTONIO A 250.02 DIABETES II UNCONTROLLED 11/11/2007 RAJOTTE FUR FARMER, ANTONIO A 272.4 HYPERLIPIDEMIA UNSPECIFIED 11/11/2007 RAJOTTE FUR FARMER, ANTONIO A 401.1 HYPERTENSION, BENIGN ESSENTIAL 11/11/2007 RAJOTTE FUR FARMER, ANTONIO A 458.0 ORTHOSTATIC HYPOTENSION 11/11/2007 RAJOTTE FUR FARMER, ANTONIO A 250.02 DIABETES II UNCONTROLLED 11/11/2007 RAJOTTE FUR FARMER, ANTONIO A 272.4 HYPERLIPIDEMIA UNSPECIFIED 11/11/2007 RAJOTTE FUR FARMER, ANTONIO A 401.1 HYPERTENSION, BENIGN ESSENTIAL 11/11/2007 RAJOTTE FUR FARMER, ANTONIO A 458.0 ORTHOSTATIC HYPOTENSION 11/11/2007 KEN [...] LEGER MD 458.0 ORTHOSTATIC HYPOTENSION 11/11/2007 RAJOTTE FUR FARMER, ANTONIO A 250.02 DIABETES II UNCONTROLLED 11/11/2007 RAJOTTE FUR FARMER, ANTONIO A 272.4 HYPERLIPIDEMIA UNSPECIFIED 11/11/2007 RAJOTTE FUR FARMER, ANTONIO A 401.1 HYPERTENSION, BENIGN ESSENTIAL 11/11/2007 RAJOTTE FUR FARMER, ANTONIO A 458.0 ORTHOSTATIC HYPOTENSION 11/11/2007 KEN DALY APRN 250.02 DIABETES II UNCONTROLLED 11/11/2007 KEN DALY APRN 272.4 HYPERLIPIDEMIA UNSPECIFIED 11/11/2007 KEN DALY APRN 401.1 HYPERTENSION, BENIGN ESSENTIAL 11/11/2007 KEN DALY APRN 458.0 ORTHOSTATIC HYPOTENSION 11/11/2007 RAJOTTE FUR FARMER, ANTONIO A 250.02 DIABETES II UNCONTROLLED 11/11/2007 RAJOTTE FUR FARMER, ANTONIO A 272.4 HYPERLIPIDEMIA UNSPECIFIED 11/11/2007 RAJOTTE FUR FARMER, ANTONIO A 401.1 HYPERTENSION, BENIGN ESSENTIAL 11/11/2007 RAJOTTE FUR FARMER, ANTONIO A 458.0 ORTHOSTATIC HYPOTENSION 11/11/2007 COLIN DO, GIAN K 250.02 DIABETES II UNCONTROLLED 11/11/2007 COLIN DO, GINA K 272.4 HYPERLIPIDEMIA UNSPECIFIED 11/11/2007 COLIN DO, GINA K 401.1 HYPERTENSION, BENIGN ESSENTIAL 11/11/2007 COLIN DO, GINA K 458.0 ORTHOSTATIC HYPOTENSION 11/11/2007 RAJOTTE FUR FARMER, ANTONIO A 250.02 DIABETES II UNCONTROLLED 11/11/2007 RAJOTTE FUR FARMER, ANTONIO A 272.4 HYPERLIPIDEMIA UNSPECIFIED 11/11/2007 RAJOTTE FUR FARMER, ANTONIO A 401.1 HYPERTENSION, BENIGN ESSENTIAL 11/11/2007 RAJOTTE FUR FARMER, ANTONIO A 458.0 ORTHOSTATIC HYPOTENSION 11/11/2007 250.02 DIABETES II UNCONTROLLED 11/11/2007 272.4 HYPERLIPIDEMIA UNSPECIFIED 11/11/2007 401.1 HYPERTENSION, BENIGN ESSENTIAL 11/11/2007 458.0 ORTHOSTATIC HYPOTENSION 11/11/2007 KELLEY FUR FARMER, AIDAN A 250.02 DIABETES II UNCONTROLLED 11/11/2007 KELLEY FUR FARMER, AIDAN A 272.4 HYPERLIPIDEMIA UNSPECIFIED 11/11/2007 KELLEY FUR FARMER, AIDAN A 401.1 HYPERTENSION, BENIGN ESSENTIAL 11/11/2007 KELLEY FUR FARMER, AIDAN A 458.0 ORTHOSTATIC HYPOTENSION 11/11/2007 RAJOTTE FUR FARMER, ANTONIO A 250.02 DIABETES II UNCONTROLLED 11/11/2007 RAJOTTE FUR FARMER, ANTONIO A 272.4 HYPERLIPIDEMIA UNSPECIFIED 11/11/2007 RAJOTTE FUR FARMER, ANTONIO A 401.1 HYPERTENSION, BENIGN ESSENTIAL 11/11/2007 RAJOTTE FUR FARMER, ANTONIO A 458.0 ORTHOSTATIC HYPOTENSION 11/11/2007 LASHAWN CASHYAEL FUR FARMER, CHANDU N 250.02 DIABETES II UNCONTROLLED 11/11/2007 LASHAWN WEINERERO FUR FARMER, CHANDU N 272.4 HYPERLIPIDEMIA UNSPECIFIED 11/11/2007 HARDIN CASHERO FUR FARMER, CHANDU N 401.1 HYPERTENSION, BENIGN ESSENTIAL 11/11/2007 HARDIN CASHERO FUR FARMER, CHANDU N 458.0 ORTHOSTATIC HYPOTENSION 02/10/2008 250.00 [...] VACCINATION AND INOCULATION AGAINST INFLUENZA 02/10/2008 KOREYE FUR FARMER, ANTONIO A 250.00 DIABETES II CONTROLLED 02/10/2008 RAJKORIE FUR FARMER, ANTONIO A 401.9 UNSPECIFIED ESSENTIAL HYPERTENSION 02/10/2008 ANTHONY ADAMS, ANTONIO A V03.82 PCV7 PCV23, STREPTOCOCCUS PNEUMONIAE [PNEUMOCOCCUS] 02/10/2008 KOREYE FUR FARMER, ANTONIO A V04.81 NEED FOR PROPHYLACTIC VACCINATION AND INOCULATION AGAINST INFLUENZA 02/10/2008 KOREYE FUR FARMER, ANTONIO A 250.00 DIABETES II CONTROLLED 02/10/2008 RAJKORIE FUR FARMER, ANTONIO A 401.9 UNSPECIFIED ESSENTIAL HYPERTENSION 02/10/2008 KOREYE FUR FARMER, ANTONIO A V03.82 PCV7 PCV23, STREPTOCOCCUS PNEUMONIAE [PNEUMOCOCCUS] 02/10/2008 ANTHONY BRANDTN, ANTONIO A V04.81 NEED FOR PROPHYLACTIC VACCINATION AND INOCULATION AGAINST INFLUENZA 02/10/2008 KOREYE FUR FARMER, ANTONIO A 250.00 DIABETES II CONTROLLED 02/10/2008 KOREYE FUR FARMER, ANTONIO A 401.9 UNSPECIFIED ESSENTIAL HYPERTENSION 02/10/2008 KOREYE FUR FARMER, ANTONIO A V03.82 PCV7 PCV23, STREPTOCOCCUS PNEUMONIAE [PNEUMOCOCCUS] 02/10/2008 JANETTOTTE FUR FARMER, ANTONIO A V04.81 NEED FOR PROPHYLACTIC VACCINATION AND INOCULATION AGAINST INFLUENZA 02/10/2008 KOREYE FUR FARMER, ANTONIO A 250.00 DIABETES II CONTROLLED 02/10/2008 RAJOTTE FUR FARMER, ANTONIO A 401.9 UNSPECIFIED ESSENTIAL HYPERTENSION 02/10/2008 KOREYE FUR FARMER, ANTONIO A V03.82 PCV7 PCV23, STREPTOCOCCUS PNEUMONIAE [PNEUMOCOCCUS] 02/10/2008 KOREYE FUR FARMER, ANTONIO A V04.81 NEED FOR PROPHYLACTIC VACCINATION AND INOCULATION AGAINST INFLUENZA 02/10/2008 RAJOTTE FUR FARMER, ANTONIO A 250.00 DIABETES II CONTROLLED 02/10/2008 RAJOTTE FUR FARMER, ANTONIO A 401.9 UNSPECIFIED ESSENTIAL HYPERTENSION 02/10/2008 RAJOTTE FUR FARMER, ANTONIO A V03.82 PCV7 PCV23, STREPTOCOCCUS PNEUMONIAE [PNEUMOCOCCUS] 02/10/2008 RAJOTTE FUR FARMER, ANTONIO A V04.81 NEED FOR PROPHYLACTIC VACCINATION AND INOCULATION AGAINST INFLUENZA 02/10/2008 RAJOTTE FUR FARMER, ANTONIO A 250.00 DIABETES II CONTROLLED 02/10/2008 RAJOTTE FUR FARMER, ANTONIO A 401.9 UNSPECIFIED ESSENTIAL HYPERTENSION 02/10/2008 RAJOTTE FUR FARMER, ANTONIO A V03.82 PCV7 PCV23, STREPTOCOCCUS PNEUMONIAE [PNEUMOCOCCUS] 02/10/2008 JANETTOTTE FUR FARMER, ANTONIO A V04.81 NEED FOR PROPHYLACTIC VACCINATION [...] VACCINATION AND INOCULATION AGAINST INFLUENZA 02/10/2008 JANETTOTTE FUR FARMER, ANTONIO A 250.00 DIABETES II CONTROLLED 02/10/2008 RAJKORIE FUR FARMER, ANTONIO A 401.9 UNSPECIFIED ESSENTIAL HYPERTENSION 02/10/2008 KOREYE FUR FARMER, ANTONIO A V03.82 PCV7 PCV23, STREPTOCOCCUS PNEUMONIAE [PNEUMOCOCCUS] 02/10/2008 JANETTOTTE FUR FARMER, ANTONIO A V04.81 NEED FOR PROPHYLACTIC VACCINATION [...] VACCINATION AND INOCULATION AGAINST INFLUENZA 02/10/2008 KELLEY FUR FARMER, AIDAN A 250.00 DIABETES II CONTROLLED 02/10/2008 KELLEY FUR FARMER, AIDAN A 401.9 UNSPECIFIED ESSENTIAL HYPERTENSION 02/10/2008 KELLEY FUR FARMER, AIDAN A V03.82 PCV7 PCV23, STREPTOCOCCUS PNEUMONIAE [PNEUMOCOCCUS] 02/10/2008 KELLEY FUR FARMER, AIDAN A V04.81 NEED FOR PROPHYLACTIC VACCINATION [...] AIDAN BENSON APRN 790.29 PREDIABETES 05/18/2008 RAJOTTE FUR FARMER, ANTONIO A 719.47 PAIN IN JOINT INVOLVING ANKLE AND FOOT 05/18/2008 RAJOTTE FUR FARMER, ANTONIO A 790.29 PREDIABETES 05/18/2008 HARDIN HUSAMYAEL FUR FARMER, CHANDU N 719.47 PAIN IN JOINT INVOLVING ANKLE AND FOOT 05/18/2008 LASHAWN ALVAREZ FUR FARMER, CHANDU N 790.29 PREDIABETES 06/12/2008 709.9 DERMATOLOGY - NON-INFECTIOUS 06/12/2008 709.9 DERMATOLOGY - NON-INFECTIOUS 06/12/2008 NATO PARADA APRN 709.9 DERMATOLOGY - NON-INFECTIOUS 06/12/2008 KEN DALY APRN 709.9 DERMATOLOGY - NON-INFECTIOUS 06/12/2008 709.9 DERMATOLOGY - NON-INFECTIOUS 06/12/2008 RAJOTTE FUR FARMER, ANTONIO A 709.9 DERMATOLOGY - NON-INFECTIOUS 06/12/2008 RAJOTTE FUR FARMER, ANTONIO A 709.9 DERMATOLOGY - NON-INFECTIOUS 06/12/2008 RAJOTTE FUR FARMER, ANTONIO A 709.9 DERMATOLOGY - NON-INFECTIOUS 06/12/2008 RAJOTTE FUR FARMER, ANTONIO A 709.9 DERMATOLOGY - NON-INFECTIOUS 06/12/2008 RAJOTTE FUR FARMER, ANTONIO A 709.9 DERMATOLOGY - NON-INFECTIOUS 06/12/2008 RAJOTTE FUR FARMER, ANTONIO A 709.9 DERMATOLOGY - NON-INFECTIOUS 06/12/2008 KEN DALY APRN 709.9 DERMATOLOGY - NON-INFECTIOUS 06/12/2008 LUIZ LEGER MD 709.9 DERMATOLOGY - NON-INFECTIOUS 06/12/2008 RAJOTTE FUR FARMER, ANTONIO A 709.9 DERMATOLOGY - NON-INFECTIOUS 06/12/2008 KEN DALY APRN 709.9 DERMATOLOGY - NON-INFECTIOUS 06/12/2008 RAJOTTE FUR FARMER, ANTONIO A 709.9 DERMATOLOGY - NON-INFECTIOUS 06/12/2008 GINA COLIN DO 709.9 DERMATOLOGY - NON-INFECTIOUS 06/12/2008 RAJOTTE FUR FARMER, ANTONIO A 709.9 DERMATOLOGY - NON-INFECTIOUS 06/12/2008 709.9 DERMATOLOGY - NON-INFECTIOUS 06/12/2008 KELLEY ADAMS, AIDAN A 709.9 DERMATOLOGY - NON-INFECTIOUS 06/12/2008 RAJOTTE FUR FARMER, ANTONIO A 709.9 DERMATOLOGY - NON-INFECTIOUS 06/12/2008 CHANDU GARDNER APRN N 709.9 DERMATOLOGY - NON-INFECTIOUS 06/17/2008 625.6 STRESS INCONTINENCE FEMALE 06/17/2008 625.6 STRESS INCONTINENCE FEMALE 06/17/2008 NATO PARADA APRN 625.6 STRESS INCONTINENCE FEMALE 06/17/2008 KEN DALY APRN 625.6 STRESS INCONTINENCE FEMALE 06/17/2008 625.6 STRESS INCONTINENCE FEMALE 06/17/2008 JANETTOTTE FUR FARMER, ANTONIO A 625.6 STRESS INCONTINENCE FEMALE 06/17/2008 RAJOTTE FUR FARMER, ANTONIO A 625.6 STRESS INCONTINENCE FEMALE 06/17/2008 RAJOTTE FUR FARMER, ATNONIO A 625.6 STRESS INCONTINENCE FEMALE 06/17/2008 RAJOTTE FUR FARMER, ANTONIO A 625.6 STRESS INCONTINENCE FEMALE 06/17/2008 RAJOTTE FUR FARMER, ANTONIO A 625.6 STRESS INCONTINENCE FEMALE 06/17/2008 KOREYE BRYAN, ANTONIO A 625.6 STRESS INCONTINENCE FEMALE 06/17/2008 KEN DALY APRN 625.6 STRESS INCONTINENCE FEMALE 06/17/2008 LUIZ LEGER MD 625.6 STRESS INCONTINENCE FEMALE 06/17/2008 RAJKORIE FUR FARMER, ANTONIO A 625.6 STRESS INCONTINENCE FEMALE 06/17/2008 KEN DALY APRN 625.6 STRESS INCONTINENCE FEMALE 06/17/2008 JANETTOTTE FUR FARMER, ANTONIO A 625.6 STRESS INCONTINENCE FEMALE 06/17/2008 GINA COLIN DO 625.6 STRESS INCONTINENCE FEMALE 06/17/2008 KOERYE FUR FARMER, ANTONIO A 625.6 STRESS INCONTINENCE FEMALE 06/17/2008 625.6 STRESS INCONTINENCE FEMALE 06/17/2008 KELLEY ADAMS AIDAN A 625.6 STRESS INCONTINENCE FEMALE 06/17/2008 KOREYE FUR FARMER, ANTONIO A 625.6 STRESS INCONTINENCE FEMALE 06/17/2008 CHANDU GARDNER APRN N 625.6 STRESS INCONTINENCE FEMALE 07/06/2008 692.9 DERMATITIS CONTACT UNSPECIFIED 07/06/2008 692.9 DERMATITIS CONTACT UNSPECIFIED 07/06/2008 NATO PARADA APRN 692.9 DERMATITIS CONTACT UNSPECIFIED 07/06/2008 KEN DALY APRN 692.9 DERMATITIS CONTACT UNSPECIFIED 07/06/2008 692.9 DERMATITIS CONTACT UNSPECIFIED 07/06/2008 RAJOTTE FUR FARMER, ANTONIO A 692.9 DERMATITIS CONTACT UNSPECIFIED 07/06/2008 RAJOTTE FUR FARMER, ANTONIO A 692.9 DERMATITIS CONTACT UNSPECIFIED 07/06/2008 RAJOTTE FUR FARMER, ANTONIO A 692.9 DERMATITIS CONTACT UNSPECIFIED 07/06/2008 RAJOTTE FUR FARMER, ANTONIO A 692.9 DERMATITIS CONTACT UNSPECIFIED 07/06/2008 RAJOTTE FUR FARMER, ANTONIO A 692.9 DERMATITIS CONTACT UNSPECIFIED 07/06/2008 RAJOTTE FUR FARMER, ANTONIO A 692.9 DERMATITIS CONTACT UNSPECIFIED 07/06/2008 KEN DALY APRN 692.9 DERMATITIS CONTACT UNSPECIFIED 07/06/2008 LUIZ LEGER MD 692.9 DERMATITIS CONTACT UNSPECIFIED 07/06/2008 RAJOTTE FUR FARMER, ANTONIO A 692.9 DERMATITIS CONTACT UNSPECIFIED 07/06/2008 KEN DALY APRN 692.9 DERMATITIS CONTACT UNSPECIFIED 07/06/2008 RAJOTTE FUR FARMER, ANTONIO A 692.9 DERMATITIS CONTACT UNSPECIFIED 07/06/2008 GINA COLIN DO 692.9 DERMATITIS CONTACT UNSPECIFIED 07/06/2008 RAJOTTE FUR FARMER, ANTONIO A 692.9 DERMATITIS CONTACT UNSPECIFIED 07/06/2008 692.9 DERMATITIS CONTACT UNSPECIFIED 07/06/2008 KELLEY FUR FARMER, AIDAN A 692.9 DERMATITIS CONTACT UNSPECIFIED 07/06/2008 RAJOTTE FUR FARMER, ANTONIO A 692.9 DERMATITIS CONTACT UNSPECIFIED 07/06/2008 CHANDU GARDNER APRN 692.9 DERMATITIS CONTACT UNSPECIFIED 06/29/2009 465.9 UPPER RESPIRATORY INFECTION 06/29/2009 530.81 GERD 06/29/2009 465.9 UPPER RESPIRATORY INFECTION 06/29/2009 530.81 GERD 06/29/2009 NATO PARADA APRN R 465.9 UPPER RESPIRATORY INFECTION 06/29/2009 NATO PARADA APRN 530.81 GERD 06/29/2009 KEN DALY APRN 465.9 UPPER RESPIRATORY INFECTION 06/29/2009 KEN DALY APRN 530.81 GERD 06/29/2009 465.9 UPPER RESPIRATORY INFECTION 06/29/2009 530.81 GERD 06/29/2009 RAJOTTE FUR FARMER, ANTONIO A 465.9 UPPER RESPIRATORY INFECTION 06/29/2009 RAJOTTE FUR FARMER, ANTONIO A 530.81 GERD 06/29/2009 RAJOTTE FUR FARMER, ANTONIO A 465.9 UPPER RESPIRATORY INFECTION 06/29/2009 RAJOTTE FUR FARMER, ANTONIO A 530.81 GERD 06/29/2009 RAJOTTE FUR FARMER, ANTONIO A 465.9 UPPER RESPIRATORY INFECTION 06/29/2009 RAJOTTE FUR FARMER, ANTONIO A 530.81 GERD 06/29/2009 RAJOTTE FUR FARMER, ANTONIO A 465.9 UPPER RESPIRATORY INFECTION 06/29/2009 RAJOTTE FUR FARMER, ANTONIO A 530.81 GERD 06/29/2009 RAJOTTE FUR FARMER, ANTONIO A 465.9 UPPER RESPIRATORY INFECTION 06/29/2009 RAJOTTE FUR FARMER, ANTONIO A 530.81 GERD 06/29/2009 RAJOTTE FUR FARMER, ANTONIO A 465.9 UPPER RESPIRATORY INFECTION 06/29/2009 RAJOTTE FUR FARMER, ANTONIO A 530.81 GERD 06/29/2009 KEN DALY APRN 465.9 UPPER RESPIRATORY INFECTION 06/29/2009 KEN DALY APRN T 530.81 GERD 06/29/2009 ARSEN MARI, LUIZ 465.9 UPPER RESPIRATORY INFECTION 06/29/2009 LUIZ LEGER MD 530.81 GERD 06/29/2009 RAJOTTE FUR FARMER, ANTONIO A 465.9 UPPER RESPIRATORY INFECTION 06/29/2009 RAJOTTE FUR FARMER, ANTONIO A 530.81 GERD 06/29/2009 KEN DALY APRN 465.9 UPPER RESPIRATORY INFECTION 06/29/2009 KEN DALY APRN 530.81 GERD 06/29/2009 RAJOTTE FUR FARMER, ANTONIO A 465.9 UPPER RESPIRATORY INFECTION 06/29/2009 RAJOTTE FUR FARMER, ANTONIO A 530.81 GERD 06/29/2009 COLIN DO, GINA K 465.9 UPPER RESPIRATORY INFECTION 06/29/2009 COLIN DO, GINA K 530.81 GERD 06/29/2009 RAJOTTE FUR FARMER, ANTONIO A 465.9 UPPER RESPIRATORY INFECTION 06/29/2009 RAJOTTE FUR FARMER, ANTONIO A 530.81 GERD 06/29/2009 465.9 UPPER RESPIRATORY INFECTION 06/29/2009 530.81 GERD 06/29/2009 KELLEY FUR FARMER, AIDAN A 465.9 UPPER RESPIRATORY INFECTION 06/29/2009 KELLEY FUR FARMER, AIDAN A 530.81 GERD 06/29/2009 RAJOTTE FUR FARMER, NATONIO A 465.9 UPPER RESPIRATORY INFECTION 06/29/2009 RAJOTTE FUR FARMER, ANTONIO A 530.81 GERD 06/29/2009 HARDIN CASHERO FUR FARMER, CHANDU N 465.9 UPPER RESPIRATORY INFECTION 06/29/2009 HARDIN HUSAMERO FUR FARMER, CHANDU N 530.81 GERD 08/25/2009 786.2 COUGH 08/25/2009 786.2 COUGH 08/25/2009 NATO PARADA APRN R 786.2 COUGH 08/25/2009 KEN DALY APRN 786.2 COUGH 08/25/2009 786.2 COUGH 08/25/2009 RAJOTTE FUR FARMER, ANTONIO A 786.2 COUGH 08/25/2009 RAJOTTE FUR FARMER, ANTONIO A 786.2 COUGH 08/25/2009 RAJOTTE FUR FARMER, ANTONIO A 786.2 COUGH 08/25/2009 RAJOTTE FUR FARMER, ANTONIO A 786.2 COUGH 08/25/2009 RAJOTTE FUR FARMER, ANTONIO A 786.2 COUGH 08/25/2009 RAJOTTE FUR FARMER, ANTONIO A 786.2 COUGH 08/25/2009 KEN DALY APRN 786.2 COUGH 08/25/2009 LUIZ LEGER MD 786.2 COUGH 08/25/2009 RAJOTTE FUR FARMER, ANTONIO A 786.2 COUGH 08/25/2009 KEN DALY APRN 786.2 COUGH 08/25/2009 RAJOTTE FUR FARMER, ANTONIO A 786.2 COUGH 08/25/2009 GINA COLIN DO 786.2 COUGH 08/25/2009 RAJOTTE FUR FARMER, ANTONIO A 786.2 COUGH 08/25/2009 786.2 COUGH 08/25/2009 KELLEY FUR FARMER, AIDAN A 786.2 COUGH 08/25/2009 RAJOTTE FUR FARMER, ANTONIO A 786.2 COUGH 08/25/2009 HARDINSACHIN WEINERERO FUR FARMER, CHANDU N 786.2 COUGH 11/10/2009 782.3 EDEMA 11/10/2009 786.05 SHORTNESS OF BREATH 11/10/2009 782.3 EDEMA 11/10/2009 786.05 SHORTNESS OF BREATH 11/10/2009 NATO PARADA APRN 782.3 EDEMA 11/10/2009 PARADA FUR FARMER, NATO R 786.05 SHORTNESS OF BREATH 11/10/2009 KEN DALY APRN 782.3 EDEMA 11/10/2009 KEN DALY APRN 786.05 SHORTNESS OF BREATH 11/10/2009 782.3 EDEMA 11/10/2009 786.05 SHORTNESS OF BREATH 11/10/2009 RAJOTTE FUR FARMER, ANTONIO A 782.3 EDEMA 11/10/2009 RAJOTTE FUR FARMER, ANTONIO A 786.05 SHORTNESS OF BREATH 11/10/2009 RAJOTTE FUR FARMER, ANTONIO A 782.3 EDEMA 11/10/2009 RAJOTTE FUR FARMER, ANTONIO A 786.05 SHORTNESS OF BREATH 11/10/2009 RAJOTTE FUR FARMER, ANTONIO A 782.3 EDEMA 11/10/2009 RAJOTTE FUR FARMER, ANTONIO A 786.05 SHORTNESS OF BREATH 11/10/2009 RAJOTTE FUR FARMER, ANTONIO A 782.3 EDEMA 11/10/2009 RAJOTTE FUR FARMER, ANTONIO A 786.05 SHORTNESS OF BREATH 11/10/2009 RAJOTTE FUR FARMER, ANTONIO A 782.3 EDEMA 11/10/2009 RAJOTTE FUR FARMER, ANTONIO A 786.05 SHORTNESS OF BREATH 11/10/2009 RAJOTTE FUR FARMER, ANTONIO A 782.3 EDEMA 11/10/2009 RAJOTTE FUR FARMER, ANTONIO A 786.05 SHORTNESS OF BREATH 11/10/2009 KEN DALY APRN 782.3 EDEMA 11/10/2009 KEN DALY APRN 786.05 SHORTNESS OF BREATH 11/10/2009 LUIZ LEGER MD 782.3 EDEMA 11/10/2009 LUIZ LEGER MD 786.05 SHORTNESS OF BREATH 11/10/2009 RAJOTTE FUR FARMER, ANTONIO A 782.3 EDEMA 11/10/2009 RAJOTTE FUR FARMER, ANTONIO A 786.05 SHORTNESS OF BREATH 11/10/2009 KEN DALY APRN 782.3 EDEMA 11/10/2009 KEN DALY APRN 786.05 SHORTNESS OF BREATH 11/10/2009 RAJOTTE FUR FARMER, ANTONIO A 782.3 EDEMA 11/10/2009 RAJOTTE FUR FARMER, ANTONIO A 786.05 SHORTNESS OF BREATH 11/10/2009 COLIN DO, GINA K 782.3 EDEMA 11/10/2009 COLIN DO, GINA K 786.05 SHORTNESS OF BREATH 11/10/2009 RAJOTTE FUR FARMER, ANTONIO A 782.3 EDEMA 11/10/2009 RAJOTTE FUR FARMER, ANTONIO A 786.05 SHORTNESS OF BREATH 11/10/2009 782.3 EDEMA 11/10/2009 786.05 SHORTNESS OF BREATH 11/10/2009 KELLEY FUR FARMER, AIDAN A 782.3 EDEMA 11/10/2009 KELLEY FUR FARMER, AIDAN A 786.05 SHORTNESS OF BREATH 11/10/2009 RAJOTTE FUR FARMER, ANTONIO A 782.3 EDEMA 11/10/2009 RAJOTTE FUR FARMER, ANTONIO A 786.05 SHORTNESS OF BREATH 11/10/2009 HARDIN CASHERO FUR FARMER, CHANDU N 782.3 EDEMA 11/10/2009 HARDIN CASHERO FUR FARMER, CHANDU N 786.05 SHORTNESS OF BREATH 01/03/2010 599.0 URINARY TRACT INFECTION, SITE NOT SPECIFIED 01/03/2010 599.0 URINARY TRACT INFECTION, SITE NOT SPECIFIED 01/03/2010 NATO PARADA APRN 599.0 URINARY TRACT INFECTION, SITE NOT SPECIFIED 01/03/2010 KEN DALY APRN 599.0 URINARY TRACT INFECTION, SITE NOT SPECIFIED 01/03/2010 599.0 URINARY TRACT INFECTION, SITE NOT SPECIFIED 01/03/2010 RAJOTTE FUR FARMER, ANTONIO A 599.0 URINARY TRACT INFECTION, SITE NOT SPECIFIED 01/03/2010 RAJOTTE FUR FARMER, ANTONIO A 599.0 URINARY TRACT INFECTION, SITE NOT SPECIFIED 01/03/2010 RAJOTTE FUR FARMER, ANTONIO A 599.0 URINARY TRACT INFECTION, SITE NOT SPECIFIED 01/03/2010 RAJOTTE FUR FARMER, ANTONIO A 599.0 URINARY TRACT INFECTION, SITE NOT SPECIFIED 01/03/2010 RAJOTTE FUR FARMER, ANTONIO A 599.0 URINARY TRACT INFECTION, SITE NOT SPECIFIED 01/03/2010 RAJOTTE FUR FARMER, ANTONIO A 599.0 URINARY TRACT INFECTION, SITE NOT SPECIFIED 01/03/2010 KEN DALY APRN 599.0 URINARY TRACT INFECTION, SITE NOT SPECIFIED 01/03/2010 LUIZ LEGER MD 599.0 URINARY TRACT INFECTION, SITE NOT SPECIFIED 01/03/2010 ANTHONY FUR FARMER, ANTONIO A 599.0 URINARY TRACT INFECTION, SITE NOT SPECIFIED 01/03/2010 MALIKA ADAMS KEN Cortez 599.0 URINARY TRACT INFECTION, SITE NOT SPECIFIED 01/03/2010 JANETTOTTE FUR FARMER, ANTONIO A 599.0 URINARY TRACT INFECTION, SITE NOT SPECIFIED 01/03/2010 GINA COLIN DO K 599.0 URINARY TRACT INFECTION, SITE NOT SPECIFIED 01/03/2010 RAJOTTE FUR FARMER, ANTONIO A 599.0 URINARY TRACT INFECTION, SITE NOT SPECIFIED 01/03/2010 599.0 URINARY TRACT INFECTION, SITE NOT SPECIFIED 01/03/2010 KELLEY APRN, AIDAN A 599.0 URINARY TRACT INFECTION, SITE NOT SPECIFIED 01/03/2010 JANETTOTTE FUR FARMER, ANTONIO A 599.0 URINARY TRACT INFECTION, SITE [...] NOS 03/02/2011 Ot 414.01 CORONARY ATHEROSCLEROSIS OF [place] CORON 03/02/2011 Ot 433.10 CAROTID ARTERY OCCLUSION [...] NOS 07/13/2011 Ot 414.01 CORONARY ATHEROSCLEROSIS OF [place] CORON 07/13/2011 Ot 427.81 SINOATRIAL NODE DYSFUNCT [...] DALY APRN 461.9 SINUSITIS ACUTE 08/21/2011 RAJOTTE FUR FARMER, ANTONIO A 461.9 SINUSITIS ACUTE 08/21/2011 GINA COLIN DO K 461.9 SINUSITIS ACUTE 08/21/2011 RAJOTTE FUR FARMER, ANTONIO A 461.9 SINUSITIS ACUTE 08/21/2011 461.9 SINUSITIS ACUTE 08/21/2011 KELLEY ADAMS AIDAN A 461.9 SINUSITIS ACUTE 08/21/2011 RAJOTTE FUR FARMER, ANTONIO A 461.9 SINUSITIS ACUTE 08/21/2011 LASHAWN ALVAREZ FUR FARMER, CHANDU N 461.9 SINUSITIS ACUTE 10/25/2011 599.0 URINARY TRACT INFECTION 10/25/2011 599.0 URINARY TRACT INFECTION 10/25/2011 NATO PARADA APRN 599.0 URINARY TRACT INFECTION 10/25/2011 KEN DALY APRN 599.0 URINARY TRACT INFECTION 10/25/2011 599.0 URINARY TRACT INFECTION 10/25/2011 RAJOTTE FUR FARMER, ANTONIO A 599.0 URINARY TRACT INFECTION 10/25/2011 RAJOTTE FUR FARMER, ANTONIO A 599.0 URINARY TRACT INFECTION 10/25/2011 RAJOTTE FUR FARMER, ANTONIO A 599.0 URINARY TRACT INFECTION 10/25/2011 RAJOTTE FUR FARMER, ANTONIO A 599.0 URINARY TRACT INFECTION 10/25/2011 RAJOTTE FUR FARMER, ANTONIO A 599.0 URINARY TRACT INFECTION 10/25/2011 RAJOTTE FUR FARMER, ANTONIO A 599.0 URINARY TRACT INFECTION 10/25/2011 KEN DALY APRN 599.0 URINARY TRACT INFECTION 10/25/2011 LUIZ LEGER MD 599.0 URINARY TRACT INFECTION 10/25/2011 RAJOTTE FUR FARMER, ANTONIO A 599.0 URINARY TRACT INFECTION 10/25/2011 KEN DALY APRN 599.0 URINARY TRACT INFECTION 10/25/2011 RAJOTTE FUR FARMER, ANTONIO A 599.0 URINARY TRACT INFECTION 10/25/2011 GINA COLIN DO K 599.0 URINARY TRACT INFECTION 10/25/2011 RAJOTTE FUR FARMER, ANTONIO A 599.0 URINARY TRACT INFECTION 10/25/2011 599.0 URINARY TRACT INFECTION 10/25/2011 KELLEY FUR FARMER, AIDAN A 599.0 URINARY TRACT INFECTION 10/25/2011 [...] (3 YRS AND ABOVE, IM) 02/16/2012 ANTHONY FUR FARMER, ANTONIO A V04.81 FLU DX (3 YRS AND ABOVE, IM) 02/16/2012 KOREYE FUR FARMER, ANTONIO A V04.81 FLU DX (3 YRS AND ABOVE, IM) 02/16/2012 KOREYE FUR FARMER, ANTONIO A V04.81 FLU DX (3 YRS AND ABOVE, IM) 02/16/2012 KOREYE FUR FARMER, ANTONIO A V04.81 FLU DX (3 YRS AND ABOVE, IM) 02/16/2012 KOREYE FUR FARMER, ANTONIO A V04.81 FLU DX (3 YRS AND ABOVE, IM) 02/16/2012 RAJKORIE FUR FARMER, ANTONIO A V04.81 FLU DX (3 YRS AND ABOVE, IM) 02/16/2012 KEN DALY APRN V04.81 FLU DX (3 YRS AND ABOVE, IM) 02/16/2012 LUIZ LEGER MD V04.81 FLU DX (3 YRS AND ABOVE, IM) 02/16/2012 ANTHONY ADAMS, ANTONIO A V04.81 FLU DX (3 YRS AND ABOVE, IM) 02/16/2012 KEN DALY APRN V04.81 FLU DX (3 YRS AND ABOVE, IM) 02/16/2012 ANTHONY FUR FARMER, ANTONIO A V04.81 FLU DX (3 YRS AND ABOVE, IM) 02/16/2012 GINA COLIN DO V04.81 FLU DX (3 YRS AND ABOVE, IM) 02/16/2012 RAJOTTE FUR FARMER, ANTONIO A V04.81 FLU DX (3 YRS AND ABOVE, IM) 02/16/2012 V04.81 FLU DX (3 YRS AND ABOVE, IM) 02/16/2012 KELLEY FUR FARMER, AIDAN A V04.81 FLU DX (3 YRS AND ABOVE, IM) 02/16/2012 RAJOTTE FUR FARMER, ANTONIO A V04.81 FLU DX (3 YRS AND ABOVE, IM) 02/16/2012 LASHAWN ALVAREZ BRYAN, CHANDU N V04.81 FLU DX (3 YRS AND ABOVE, IM) 04/04/2012 461.9 SINUSITIS ACUTE 04/04/2012 461.9 SINUSITIS ACUTE 04/04/2012 NATO PARADA APRN 461.9 SINUSITIS ACUTE 04/04/2012 KEN DALY APRN 461.9 SINUSITIS ACUTE 04/04/2012 461.9 SINUSITIS ACUTE 04/04/2012 RAJOTTE FUR FARMER, ANTONIO A 461.9 SINUSITIS ACUTE 04/04/2012 RAJOTTE FUR FARMER, ANTONIO A 461.9 SINUSITIS ACUTE 04/04/2012 RAJOTTE FUR FARMER, ANTONIO A 461.9 SINUSITIS ACUTE 04/04/2012 RAJOTTE FUR FARMER, ANTONIO A 461.9 SINUSITIS ACUTE 04/04/2012 RAJOTTE FUR FARMER, ANTONIO A 461.9 SINUSITIS ACUTE 04/04/2012 RAJOTTE FUR FARMER, ANTONIO A 461.9 SINUSITIS ACUTE 04/04/2012 KEN DALY APRN 461.9 SINUSITIS ACUTE 04/04/2012 LUIZ LEGER MD 461.9 SINUSITIS ACUTE 04/04/2012 RAJOTTE FUR FARMER, ANTONIO A 461.9 SINUSITIS ACUTE 04/04/2012 KEN DALY APRN 461.9 SINUSITIS ACUTE 04/04/2012 RAJOTTE FUR FARMER, ANTONIO A 461.9 SINUSITIS ACUTE 04/04/2012 GINA COLIN DO 461.9 SINUSITIS ACUTE 04/04/2012 RAJOTTE FUR FARMER, ANTONIO A 461.9 SINUSITIS ACUTE 04/04/2012 461.9 SINUSITIS ACUTE 04/04/2012 KELLEY ADAMS AIDAN A 461.9 SINUSITIS ACUTE 04/04/2012 RAJOTTE FUR FARMER, ANTONIO A 461.9 SINUSITIS ACUTE 04/04/2012 LASHAWN ALVAREZ FUR FARMER, CHANDU N 461.9 SINUSITIS ACUTE 04/19/2012 454.9 VARICOSE VEINS ASYMPTOMATIC 04/19/2012 465.9 UPPER RESPIRATORY INFECTION 04/19/2012 NATO PARADA APRN R 454.9 VARICOSE VEINS ASYMPTOMATIC 04/19/2012 CORAL PARADA APRNIA R 465.9 UPPER RESPIRATORY INFECTION 04/19/2012 KEN DALY APRN T 454.9 VARICOSE VEINS ASYMPTOMATIC 04/19/2012 KEN DALY APRN T 465.9 UPPER RESPIRATORY INFECTION 04/19/2012 454.9 VARICOSE VEINS ASYMPTOMATIC 04/19/2012 465.9 UPPER RESPIRATORY INFECTION 04/19/2012 RAJOTTE FUR FARMER, ANTONIO A 454.9 VARICOSE VEINS ASYMPTOMATIC 04/19/2012 RAJOTTE FUR FARMER, ANTONIO A 465.9 UPPER RESPIRATORY INFECTION 04/19/2012 RAJOTTE FUR FARMER, ANTONIO A 454.9 VARICOSE VEINS ASYMPTOMATIC 04/19/2012 RAJOTTE FUR FARMER, ANTONIO A 465.9 UPPER RESPIRATORY INFECTION 04/19/2012 RAJOTTE FUR FARMER, ANTONIO A 454.9 VARICOSE VEINS ASYMPTOMATIC 04/19/2012 RAJOTTE FUR FARMER, ANTONIO A 465.9 UPPER RESPIRATORY INFECTION 04/19/2012 RAJOTTE FUR FARMER, ANTONIO A 454.9 VARICOSE VEINS ASYMPTOMATIC 04/19/2012 RAJOTTE FUR FARMER, ANTONIO A 465.9 UPPER RESPIRATORY INFECTION 04/19/2012 RAJOTTE FUR FARMER, ANTONIO A 454.9 VARICOSE VEINS ASYMPTOMATIC 04/19/2012 RAJOTTE FUR FARMER, ANTONIO A 465.9 UPPER RESPIRATORY INFECTION 04/19/2012 RAJOTTE FUR FARMER, ANTONIO A 454.9 VARICOSE VEINS ASYMPTOMATIC 04/19/2012 RAJOTTE FUR FARMER, ANTONIO A 465.9 UPPER RESPIRATORY INFECTION 04/19/2012 KEN DALY APRN T 454.9 VARICOSE VEINS ASYMPTOMATIC 04/19/2012 KEN DALY APRN T 465.9 UPPER RESPIRATORY INFECTION 04/19/2012 LUIZ LEGER MD 454.9 VARICOSE VEINS ASYMPTOMATIC 04/19/2012 LUIZ LEGER MD 465.9 UPPER RESPIRATORY INFECTION 04/19/2012 RAJOTTE FUR FARMER, ANTONIO A 454.9 VARICOSE VEINS ASYMPTOMATIC 04/19/2012 RAJOTTE FUR FARMER, ANTONIO A 465.9 UPPER RESPIRATORY INFECTION 04/19/2012 KEN DALY APRN T 454.9 VARICOSE VEINS ASYMPTOMATIC 04/19/2012 KEN DALY APRN T 465.9 UPPER RESPIRATORY INFECTION 04/19/2012 RAJOTTE FUR FARMER, ANTONIO A 454.9 VARICOSE VEINS ASYMPTOMATIC 04/19/2012 RAJOTTE FUR FARMER, ANTONIO A 465.9 UPPER RESPIRATORY INFECTION 04/19/2012 COLIN DO, GINA K 454.9 VARICOSE VEINS ASYMPTOMATIC 04/19/2012 COLIN DO, GINA K 465.9 UPPER RESPIRATORY INFECTION 04/19/2012 RAJOTTE FUR FARMER, ANTONIO A 454.9 VARICOSE VEINS ASYMPTOMATIC 04/19/2012 RAJOTTE FUR FARMER, ANTONIO A 465.9 UPPER RESPIRATORY INFECTION 04/19/2012 KELLEY FUR FARMER, AIDAN A 454.9 VARICOSE VEINS ASYMPTOMATIC 04/19/2012 KELLEY FUR FARMER, AIDAN A 465.9 UPPER RESPIRATORY INFECTION 04/19/2012 RAJOTTE FUR FARMER, ANTONIO A 454.9 VARICOSE VEINS ASYMPTOMATIC 04/19/2012 RAJOTTE FUR FARMER, ANTONIO A 465.9 UPPER RESPIRATORY INFECTION 04/19/2012 HARDIN CASHERO FUR FARMER, CHANDU N 454.9 VARICOSE VEINS ASYMPTOMATIC 04/19/2012 HARDIN CASHERO FUR FARMER, CHANDU N 465.9 UPPER RESPIRATORY INFECTION 05/10/2012 NATO PARADA APRN 553.20 VENTRAL HERNIA 05/10/2012 KEN DALY APRN 553.20 VENTRAL HERNIA 05/10/2012 553.20 VENTRAL HERNIA 05/10/2012 RAJOTTE FUR FARMER, ANTONIO A 553.20 VENTRAL HERNIA 05/10/2012 RAJOTTE FUR FARMER, ANTONIO A 553.20 VENTRAL HERNIA 05/10/2012 RAJOTTE FUR FARMER, ANTONIO A 553.20 VENTRAL HERNIA 05/10/2012 RAJOTTE FUR FARMER, ANTONIO A 553.20 VENTRAL HERNIA 05/10/2012 RAJOTTE FUR FARMER, ANTONIO A 553.20 VENTRAL HERNIA 05/10/2012 RAJOTTE FUR FARMER, ANTONIO A 553.20 VENTRAL HERNIA 05/10/2012 KEN DALY APRN 553.20 VENTRAL HERNIA 05/10/2012 ARSEN MARI, LUIZ 553.20 VENTRAL HERNIA 05/10/2012 RAJOTTE FUR FARMER, ANTONIO A 553.20 VENTRAL HERNIA 05/10/2012 MALIKA FUR FARMERKEN Farooq T 553.20 VENTRAL HERNIA 05/10/2012 RAJOTTE FUR FARMER, ANTONIO A 553.20 VENTRAL HERNIA 05/10/2012 COLIN GINA MARION K 553.20 VENTRAL HERNIA 05/10/2012 RAJOTTE FUR FARMER, ANTONIO A 553.20 VENTRAL HERNIA 05/10/2012 KELLEY FUR FARMER, AIDAN A 553.20 VENTRAL HERNIA 05/10/2012 RAJOTTE FUR FARMER, ANTONIO A 553.20 VENTRAL HERNIA 05/10/2012 LASHAWN ALVAREZ FUR FARMER, CHANDU N 553.20 VENTRAL HERNIA 05/28/2012 KEN DALY APRN 278.00 OBESITY 05/28/2012 KEN DALY APRN T 553.9 HERNIA UNSPECIFIED SITE 05/28/2012 278.00 OBESITY 05/28/2012 553.9 HERNIA UNSPECIFIED SITE 05/28/2012 RAJOTTE FUR FARMER, ANTONIO A 278.00 OBESITY 05/28/2012 RAJOTTE FUR FARMER, ANTONIO A 553.9 HERNIA UNSPECIFIED SITE 05/28/2012 RAJOTTE FUR FARMER, ANTONIO A 278.00 OBESITY 05/28/2012 RAJOTTE FUR FARMER, ANTONIO A 553.9 HERNIA UNSPECIFIED SITE 05/28/2012 RAJOTTE FUR FARMER, ANTONIO A 278.00 OBESITY 05/28/2012 RAJOTTE FUR FARMER, ANTNOIO A 553.9 HERNIA UNSPECIFIED SITE 05/28/2012 RAJOTTE FUR FARMER, ANTONIO A 278.00 OBESITY 05/28/2012 RAJOTTE FUR FARMER, ANTONIO A 553.9 HERNIA UNSPECIFIED SITE 05/28/2012 RAJOTTE FUR FARMER, ANTONIO A 278.00 OBESITY 05/28/2012 RAJOTTE FUR FARMER, ANTONIO A 553.9 HERNIA UNSPECIFIED SITE 05/28/2012 RAJOTTE FUR FARMER, ANTONIO A 278.00 OBESITY 05/28/2012 RAJOTTE FUR FARMER, ANTONIO A 553.9 HERNIA UNSPECIFIED SITE 05/28/2012 KEN DALY APRN 278.00 OBESITY 05/28/2012 KEN DALY APRN 553.9 HERNIA UNSPECIFIED SITE 05/28/2012 LUIZ LEGER MD 278.00 OBESITY 05/28/2012 LUIZ LEGER MD 553.9 HERNIA UNSPECIFIED SITE 05/28/2012 RAJOTTE FUR FARMER, ANTONIO A 278.00 OBESITY 05/28/2012 RAJOTTE FUR FARMER, ANTONIO A 553.9 HERNIA UNSPECIFIED SITE 05/28/2012 MALIKA ADAMS, KEN T 278.00 OBESITY 05/28/2012 KEN DALY APRN T 553.9 HERNIA UNSPECIFIED SITE 05/28/2012 RAJOTTE FUR FARMER, ANTONIO A 278.00 OBESITY 05/28/2012 RAJOTTE FUR FARMER, ANTONIO A 553.9 HERNIA UNSPECIFIED SITE 05/28/2012 COLIN DO, GINA K 278.00 OBESITY 05/28/2012 COLIN DO, GINA K 553.9 HERNIA UNSPECIFIED SITE 05/28/2012 RAJOTTE FUR FARMER, ANTONIO A 278.00 OBESITY 05/28/2012 RAJOTTE FUR FARMER, ANTONIO A 553.9 HERNIA UNSPECIFIED SITE 05/28/2012 KELLEY FUR FARMER, AIDAN A 278.00 OBESITY 05/28/2012 KELLEY FUR FARMER, AIDAN A 553.9 HERNIA UNSPECIFIED SITE 05/28/2012 RAJOTTE FUR FARMER, ANTONIO A 278.00 OBESITY 05/28/2012 RAJOTTE FUR FARMER, ANTONIO A 553.9 HERNIA UNSPECIFIED SITE 05/28/2012 HARDIN CASHERO FUR FARMER, CHANDU N 278.00 OBESITY 05/28/2012 HARDIN CASHERO FUR FARMER, CHANDU N 553.9 HERNIA UNSPECIFIED SITE 02/05/2013 RAJOTTE FUR FARMER, ANTONIO A 719.46 PAIN- KNEE 02/05/2013 RAJOTTE FUR FARMER, ANTONIO A 719.46 PAIN- KNEE 02/05/2013 RAJOTTE FUR FARMER, ANTONIO A 719.46 PAIN- KNEE 02/05/2013 RAJOTTE FUR FARMER, ANTONIO A 719.46 PAIN- KNEE 02/05/2013 RAJOTTE FUR FARMER, ANTONIO A 719.46 PAIN- KNEE 02/05/2013 RAJOTTE FUR FARMER, ANTONIO A 719.46 PAIN- KNEE 02/05/2013 KEN DALY APRN 719.46 PAIN- KNEE 02/05/2013 LUIZ LEGER MD 719.46 PAIN- KNEE 02/05/2013 RAJOTTE FUR FARMER, ANTONIO A 719.46 PAIN- KNEE 02/05/2013 KEN DALY APRN 719.46 PAIN- KNEE 02/05/2013 RAJOTTE FUR FARMER, ANTONIO A 719.46 PAIN- KNEE 02/05/2013 GINA COLIN DO 719.46 PAIN- KNEE 02/05/2013 RAJOTTE FUR FARMER, ANTONIO A 719.46 PAIN- KNEE 02/05/2013 AIDAN BENSON APRN 719.46 PAIN- KNEE 02/05/2013 RAJOTTE FUR FARMER, ANTONIO A 719.46 PAIN- KNEE 02/05/2013 LASHAWN [...] Ot V57.1 PHYSICAL THERAPY NEC 04/11/2013 RAJKORIE FUR FARMER, ANTONIO A 466.0 BRONCHITIS, ACUTE 04/11/2013 RAJOTTE FUR FARMER, ANTONIO A 466.0 BRONCHITIS, ACUTE 04/11/2013 RAJOTTE FUR FARMER, ANTONIO A 466.0 BRONCHITIS, ACUTE 04/11/2013 RAJOTTE FUR FARMER, ANTONIO A 466.0 BRONCHITIS, ACUTE 04/11/2013 KEN DALY APRN 466.0 BRONCHITIS, ACUTE 04/11/2013 ARSEN MARI, LUIZ 466.0 BRONCHITIS, ACUTE 04/11/2013 RAJOTTE FUR FARMER, ANTONIO A 466.0 BRONCHITIS, ACUTE 04/11/2013 KEN DALY APRN 466.0 BRONCHITIS, ACUTE 04/11/2013 RAJOTTE FUR FARMER, ANTONIO A 466.0 BRONCHITIS, ACUTE 04/11/2013 GINA COLIN DO 466.0 BRONCHITIS, ACUTE 04/11/2013 RAJOTTE FUR FARMER, ANTONIO A 466.0 BRONCHITIS, ACUTE 04/11/2013 AIDAN [...] LEGER MD Ot 414.01 CORONARY ATHEROSCLEROSIS OF [place] CORON 07/03/2013 LUIZ LEGER MD Ot 427.81 [...] JOINT INVOLVING ANKLE AND FOOT 09/19/2013 DARCY RCUZ APRNYL A 726.71 ACHILLES BURSITIS OR TENDINITIS [...] ACHILLES BURSITIS OR TENDINITIS 11/11/2013 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 Ot 719.47 JOINT PAIN-ANKLE 11/11/2013 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 Ot 726.71 ACHILLES TENDINITIS 11/11/2013 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 Ot V57.1 PHYSICAL THERAPY NEC 12/17/2013 DARCY CRUZ APRNYL A 719.46 PAIN- KNEE 12/17/2013 GINA COLIN DO 719.46 PAIN- KNEE 12/17/2013 DARCY CRUZ APRNYL A 719.46 PAIN- KNEE 12/17/2013 AIDAN BENSON APRN A 719.46 PAIN- KNEE 12/17/2013 DARCY CRUZ APRNYL A 719.46 PAIN- KNEE 12/17/2013 HARDINSACHIN ALVAREZ APRN, CHANDU N 719.46 PAIN- KNEE 02/13/2014 ANTHONY BRANDTCapri ANTONIO A V04.81 FLU SHOT 02/13/2014 KELLEY FUR FARMER, AIDAN A V04.81 FLU SHOT 02/13/2014 KOREYE FUR FARMER, ANTONIO A V04.81 FLU SHOT 02/13/2014 HARDIN HUSAMGISSELLE CONLEY APRNCY N V04.81 FLU SHOT 05/18/2014 KELLEY FUR FARMER, AIDAN A 799.81 DECREASED LIBIDO 05/18/2014 KELLEY FUR FARMER, AIDAN A V49.81 ASYMPTOMATIC POSTMENOPAUSAL STATUS (AGE-RELATED) (NATURAL) 05/18/2014 ANTHONY BRYAN ANTONIO A 799.81 DECREASED LIBIDO 05/18/2014 KOREYE FUR FARMER, ANTONIO A V49.81 ASYMPTOMATIC POSTMENOPAUSAL STATUS (AGE-RELATED) (NATURAL) 05/18/2014 HARDIN HUSAMGISSELLE CONLEY APRNCY N 799.81 DECREASED LIBIDO 05/18/2014 HARDIN HUSAMYAEL FUR FARMERGISSELLE FarooqCY N V49.81 ASYMPTOMATIC POSTMENOPAUSAL STATUS (AGE-RELATED) (NATURAL) 05/28/2014 DARCY CRUZ APRNYL A V72.31 MIDDLE SCHOOL PROFESSIONAL EXAM, ROUTINE 05/28/2014 DARCY CRUZ APRNYL A V73.81 HPV SCREENING 05/28/2014 DARCY CRUZ APRNYL A V76.10 BREAST CANCER SCREENING 05/28/2014 DARCY CRUZ APRNYL A V76.2 CERVICAL CANCER SCREENING (PAP SMEAR) 05/28/2014 CHANDU GARDNER APRN N V72.31 MIDDLE SCHOOL PROFESSIONAL EXAM, ROUTINE 05/28/2014 GISSELLE GARDNER APRNCY N [...] 272.4 03/08/2015 Ot 553.20 03/08/2015 SARAHI RUIZ 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 Ot 250.00 03/08/2015 SARAHI RUIZP Ot 272.4 [...] MD Ot I25.10 ATHSCL HEART DISEASE OF [place] CORONARY 03/10/2015 VELIA ARDON MD Ot N13.2 HYDRONEPHROSIS WITH RENAL AND URETERAL C 03/10/2015 VELIA ARDON MD Ot N81.10 CYSTOCELE, UNSPECIFIED 03/10/2015 VELIA ARDON MD Ot Z79.899 OTHER HAMMERER HELPER (CURRENT) DRUG THERAPY 03/10/2015 DUGLAS MARI, VELIA [...] 272.4 03/11/2015 Ot 553.20 03/11/2015 SARAHI RUIZ 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 Ot 250.00 03/11/2015 SARAHI RUIZ 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 Ot 272.4 03/11/2015 SARAHI RUIZ 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 Ot 401.9 03/11/2015 VINICIO PAJEWEL K Ot [...] VINICIO PA, JEWEL K Ot 414.00 03/11/2015 JEWEL [...] 03/19/2015 MARI AMARO MD Ot Z79.899 OTHER JAIL (CURRENT) DRUG THERAPY 03/19/2015 MARI AMARO MD [...] Ot 272.4 05/16/2015 Ot 553.20 05/16/2015 RUIZSARAHI 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 Ot 250.00 05/16/2015 RUIZSARAHI 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 Ot 272.4 05/16/2015 RUIZSARAHI 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 Ot 401.9 05/16/2015 CHRISTENSEN-CHETAN PA, JEWEL K [...] VENTRAL HERNIA NOS 11/22/2015 RUIZ, SARAHI Mcclendon 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 Ot 250.00 DIAB CRISTIANO WO COMPL, TYPE II OR UNSPEC TY 11/22/2015 RUIZ, SARAHI Mcclendon 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 Ot 272.4 HYPERLIPIDEMIA NEC/NOS 11/22/2015 RUIZSARAHI 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 Ot 401.9 HYPERTENSION NOS 11/22/2015 JEWEL OROZCO [...] MD Ot I25.10 ATHSCL HEART DISEASE OF [place] CORONARY 11/22/2015 DRU LINDO MD Ot I49.5 SICK SINUS SYNDROME 11/22/2015 DRU LINDO MD Ot R55 SYNCOPE AND COLLAPSE 11/22/2015 DRU LINDO MD Ot E78.2 MIXED HYPERLIPIDEMIA 11/22/2015 DRU LINDO MD Ot I10 ESSENTIAL (PRIMARY) HYPERTENSION 11/22/2015 DRU LINDO MD Ot I25.10 ATHSCL HEART DISEASE OF [place] CORONARY 11/22/2015 DRU LINDO MD Ot I49.5 [...] 553.20 VENTRAL HERNIA NOS 11/26/2015 RUIZSARAHI IRAHETA 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 Ot 250.00 DIAB CRISTIANO WO COMPL, TYPE II OR UNSPEC TY 11/26/2015 RUIZSARAHI IRAHETA 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 Ot 272.4 HYPERLIPIDEMIA NEC/NOS 11/26/2015 SARAHI RUIZ 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 Ot 401.9 HYPERTENSION NOS 11/26/2015 JEWEL OROZCO Ot 272.4 HYPERLIPIDEMIA NEC/NOS 11/26/2015 JEWEL OROZCO Ot 278.01 MORBID OBESITY 11/26/2015 JEWEL OROZCO Ot 327.23 OBSTRUCTIVE SLEEP APNEA (ADULT) (PEDIATR 11/26/2015 JEWEL OROZCO Ot 401.9 HYPERTENSION NOS 11/26/2015 EJWEL OROZCO Ot 414.00 CORON ATHEROSCLER NOS TYPE [...] MD Ot I25.10 ATHSCL HEART DISEASE OF [place] CORONARY 11/26/2015 DRU LINDO MD Ot I49.5 SICK SINUS SYNDROME 11/26/2015 DRU LINDO MD Ot R55 SYNCOPE AND COLLAPSE 11/26/2015 RDU LINDO MD Ot E78.2 MIXED HYPERLIPIDEMIA 11/26/2015 DRU LINDO MD Ot I10 ESSENTIAL (PRIMARY) HYPERTENSION 11/26/2015 DRU LINDO MD Ot I25.10 ATHSCL HEART DISEASE OF [place] CORONARY 11/26/2015 DRU LINDO MD Ot I49.5 [...] Z23 ENCOUNTER FOR IMMUNIZATION 01/18/2016 YANA SCHMITZ FUR FARMER Ot R10.84 GENERALIZED ABDOMINAL PAIN 01/18/2016 YANA SCHMITZ FUR FARMER Ot Z87.442 PERSONAL HISTORY OF URINARY CALCULI 02/01/2016 NOHEMY TYLER MD Ot N20.0 CALCULUS OF KIDNEY 02/01/2016 DUR LINDO MD Ot E78.2 MIXED HYPERLIPIDEMIA 02/01/2016 DRU LINDO MD Ot N20.0 CALCULUS OF KIDNEY 02/01/2016 DRU LINDO MD Ot E78.2 MIXED HYPERLIPIDEMIA 02/01/2016 GUICHO MARI, DRU Aguero Ot N20.0 CALCULUS OF KIDNEY 02/02/2016 YANA SCHMITZ FUR FARMER Ot R10.84 GENERALIZED ABDOMINAL PAIN 02/02/2016 YANA SCHMITZ FUR FARMER Ot Z87.442 PERSONAL HISTORY OF URINARY CALCULI [...] 553.20 VENTRAL HERNIA NOS 04/18/2016 RUIZSARAHI IRAHETA 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 Ot 250.00 DIAB CRISTIANO WO COMPL, TYPE II OR UNSPEC TY 04/18/2016 RUIZSARAHI 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 Ot 272.4 HYPERLIPIDEMIA NEC/NOS 04/18/2016 RUIZSARAHI IRAHETA 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 Ot 401.9 HYPERTENSION NOS 04/18/2016 JEWEL OROZCO [...] MD Ot I25.10 ATHSCL HEART DISEASE OF [place] CORONARY 04/18/2016 DRU LINDO MD Ot I49.5 SICK SINUS SYNDROME 04/18/2016 DRU LINDO MD Ot R55 SYNCOPE AND COLLAPSE 04/18/2016 DRU LINDO MD Ot E78.2 MIXED HYPERLIPIDEMIA 04/18/2016 DRU LINDO MD Ot I10 ESSENTIAL (PRIMARY) HYPERTENSION 04/18/2016 DRU LINDO MD Ot I25.10 ATHSCL HEART DISEASE OF [place] CORONARY 04/18/2016 DRU LINDO MD Ot I49.5 SICK SINUS SYNDROME 04/18/2016 DRU LINDO MD Ot R55 SYNCOPE AND COLLAPSE 04/18/2016 NOHEMY TYLER MD Ot N20.2 CALCULUS OF KIDNEY WITH CALCULUS OF URET 04/18/2016 YANA SCHMITZ FUR FARMER Ot R10.84 GENERALIZED ABDOMINAL PAIN 04/18/2016 YANA SCHMITZ FUR FARMER Ot Z87.442 PERSONAL HISTORY OF URINARY CALCULI 04/18/2016 DRU LINDO MD Ot E78.2 MIXED HYPERLIPIDEMIA 04/18/2016 DRU LINDO MD Ot N20.0 CALCULUS OF KIDNEY 04/18/2016 NOHEMY TYLER MD Ot N20.0 CALCULUS OF KIDNEY 04/19/2016 RAJOTTE, ANTONIO A 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 Ot I10 ESSENTIAL (PRIMARY) HYPERTENSION 04/19/2016 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 Ot R00.1 BRADYCARDIA, UNSPECIFIED 04/19/2016 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 Ot R42 DIZZINESS AND GIDDINESS 04/19/2016 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 Ot Z95.0 PRESENCE OF CARDIAC PACEMAKER 04/30/2016 JAYSON MARI, NOHEMY Mcclendon Ot N20.0 CALCULUS OF KIDNEY 05/03/2016 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 Ot I10 ESSENTIAL (PRIMARY) HYPERTENSION 05/03/2016 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 Ot R00.1 BRADYCARDIA, UNSPECIFIED 05/03/2016 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 Ot R42 DIZZINESS AND GIDDINESS 05/03/2016 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 Ot Z95.0 PRESENCE OF CARDIAC PACEMAKER 01/01/2017 MAY OROZCOTH K Ot E78.2 MIXED HYPERLIPIDEMIA 01/01/2017 MAY OROZCOTH K Ot I10 ESSENTIAL (PRIMARY) HYPERTENSION 01/01/2017 VINICIO NICOLE JEWEL K Ot I25.10 ATHSCL HEART DISEASE OF [place] CORONARY 01/01/2017 MAY OROZCOTH K Ot R42 DIZZINESS AND GIDDINESS 01/17/2017 MAY OROZCOTH K Ot E78.2 MIXED HYPERLIPIDEMIA 01/17/2017 VINICIO NICOLE JEWEL K Ot I10 ESSENTIAL (PRIMARY) HYPERTENSION 01/17/2017 DINO OROZCODITH K Ot I25.10 ATHSCL HEART DISEASE OF [place] CORONARY 01/17/2017 VINICIO NICOLE JEWEL K Ot R42 DIZZINESS AND GIDDINESS 02/07/2017 VINICIO NICOLE JEWEL K Ot E78.2 MIXED HYPERLIPIDEMIA 02/07/2017 VINICIO NICOLE JEWEL K Ot I10 ESSENTIAL (PRIMARY) HYPERTENSION 02/07/2017 VINICIO NICOLE JEWEL K Ot I25.10 ATHSCL HEART DISEASE OF [place] CORONARY 02/07/2017 VINICIO NICOLE JEWEL K Ot R42 DIZZINESS AND GIDDINESS 02/27/2017 GUICHO MARI, DRU Aguero Ot I10 ESSENTIAL (PRIMARY) HYPERTENSION 02/27/2017 DRU LINDO MD Ot I25.10 ATHSCL HEART DISEASE OF [place] CORONARY 02/27/2017 DRU LINDO MD Ot I49.5 SICK SINUS SYNDROME 02/27/2017 DRU LINDO MD Ot R00.2 PALPITATIONS 02/27/2017 DRU LINDO MD Ot R06.02 SHORTNESS OF BREATH 03/08/2017 DRU LINDO MD Ot I10 ESSENTIAL (PRIMARY) HYPERTENSION 03/08/2017 DRU LINDO MD Ot I25.10 ATHSCL HEART DISEASE OF [place] CORONARY 03/08/2017 DRU LINDO MD Ot I49.5 [...] MD Ot I25.10 ATHSCL HEART DISEASE OF [place] CORONARY 04/04/2017 DRU LINDO MD Ot I49.5 SICK SINUS SYNDROME 04/04/2017 DRU LINDO MD Ot I65.23 OCCLUSION AND STENOSIS OF BILATERAL [place] 04/04/2017 DRU LINDO MD Ot J44.9 CHRONIC OBSTRUCTIVE PULMONARY DISEASE, U 04/04/2017 DRU LINDO MD Ot R07.9 CHEST PAIN, UNSPECIFIED 04/04/2017 DRU LINDO MD Ot Z68.42 BODY MASS INDEX (BMI) 45.0-49.9, ADULT 04/04/2017 DRU LINDO MD Ot Z79.82 JAIL (CURRENT) USE OF ASPIRIN 04/04/2017 DRU LINDO MD Ot Z79.899 OTHER HAMMERER HELPER (CURRENT) DRUG THERAPY 04/04/2017 DRU LINDO MD [...] MD Ot I25.10 ATHSCL HEART DISEASE OF [place] CORONARY 04/18/2017 DRU LINDO MD Ot I49.5 SICK SINUS SYNDROME 04/18/2017 DRU LINDO MD Ot I65.23 OCCLUSION AND STENOSIS OF BILATERAL [place] 04/18/2017 DRU LINDO MD, Ot J44.9 CHRONIC OBSTRUCTIVE PULMONARY DISEASE, U 04/18/2017 DRU LINDO MD Ot R07.9 CHEST PAIN, UNSPECIFIED 04/18/2017 DRU LINDO MD Ot Z68.42 BODY MASS INDEX (BMI) 45.0-49.9, ADULT 04/18/2017 DRU LINDO MD Ot Z79.82 JAIL (CURRENT) USE OF ASPIRIN 04/18/2017 DRU LINDO MD Ot Z79.899 OTHER JAIL (CURRENT) DRUG THERAPY 04/18/2017 DRU LINDO MD [...] APRN Ot I25.10 ATHSCL HEART DISEASE OF [place] CORONARY 08/02/2017 TRISTAN ALCALA APRN Ot N20.1 CALCULUS OF URETER 08/02/2017 TRISTAN ALCALA APRN Ot R10.9 UNSPECIFIED ABDOMINAL PAIN 08/02/2017 TRISTAN ALCALA APRN Ot Z79.82 JAIL (CURRENT) USE OF ASPIRIN 08/02/2017 TRISTAN ALCALA [...] APRN Ot I25.10 ATHSCL HEART DISEASE OF [place] CORONARY 08/06/2017 TRISTAN ALCALA APRN Ot N20.1 CALCULUS OF URETER 08/06/2017 TRISTAN ALCALA APRN Ot R10.9 UNSPECIFIED ABDOMINAL PAIN 08/06/2017 TRISTAN ALCALA APRN Ot Z79.82 HAMMERER HELPER (CURRENT) USE OF ASPIRIN 08/06/2017 TRISTAN ALCALA APRN Ot Z82.49 FAMILY HX OF ISCHEM HEART DIS AND OTH DI 08/06/2017 TRISTAN ALCALA APRN Ot Z86.73 PRSNL HX OF TIA (TIA), AND CEREB INFRC W 08/06/2017 TRISTAN ALCALA FUR FARMER Ot Z87.19 PERSONAL HISTORY OF OTHER DISEASES OF TH 08/06/2017 TRISTAN ALCALA FUR FARMER Ot Z87.442 PERSONAL HISTORY OF URINARY CALCULI 08/06/2017 TRISTAN ALCALA FUR FARMER Ot Z88.0 ALLERGY STATUS TO PENICILLIN 08/06/2017 TRISTAN ALCALA FUR FARMER Ot Z88.1 ALLERGY STATUS TO OTHER ANTIBIOTIC AGENT 08/06/2017 TRISTAN ALCALA FUR FARMER Ot Z95.0 PRESENCE OF CARDIAC PACEMAKER 08/06/2017 TRISTAN ALCALA FUR FARMER Ot Z95.5 PRESENCE OF CORONARY ANGIOPLASTY IMPLANT 08/10/2017 NOHEMY TYLER MD Ot N20.2 CALCULUS OF KIDNEY WITH CALCULUS OF URET 08/10/2017 NOHEMY TYLER MD Ot N20.0 CALCULUS OF KIDNEY 08/12/2017 NOHEMY TYLER MD, Ot N20.1 CALCULUS OF URETER 08/13/2017 NOHEMY TYLER MD, Ot N20.0 CALCULUS OF KIDNEY 08/13/2017 NOHEMY TYLER MD, Ot Z01.818 ENCOUNTER FOR OTHER PREPROCEDURAL EXAMIN 08/14/2017 NOHEMY TYLER MD Ot E66.01 MORBID (SEVERE) OBESITY DUE TO EXCESS CA 08/14/2017 NOHEMY TYLER MD Ot E78.00 PURE HYPERCHOLESTEROLEMIA, UNSPECIFIED 08/14/2017 NOHEMY TYLER MD, Ot F32.9 MAJOR DEPRESSIVE DISORDER, SINGLE EPISOD 08/14/2017 NOHEMY TYLER MD, Ot G47.33 OBSTRUCTIVE SLEEP APNEA (ADULT) (PEDIATR 08/14/2017 NOHEMY TYLER MD Ot I10 ESSENTIAL (PRIMARY) HYPERTENSION 08/14/2017 NOHEMY TYLER MD, Ot I25.10 ATHSCL HEART DISEASE OF [place] CORONARY 08/14/2017 NOHEMY TYLER MD, Ot J44.9 CHRONIC OBSTRUCTIVE PULMONARY DISEASE, U 08/14/2017 NOHEMY TYLER MD, Ot N20.0 CALCULUS OF KIDNEY 08/14/2017 NOHEMY TYLER MD, Ot Z68.42 BODY MASS INDEX (BMI) 45.0-49.9, ADULT 08/14/2017 NOHEMY TYLER MD, Ot Z79.82 HAMMERER HELPER (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) USE OF ASPIRIN 08/14/2017 NOHEMY TYLER MD Ot Z79.899 OTHER JAIL (CURRENT) DRUG THERAPY 08/14/2017 NOHEMY TYLER MD Ot Z95.0 PRESENCE OF CARDIAC PACEMAKER 08/15/2017 NOHEMY TYLER MD Ot E66.01 MORBID (SEVERE) OBESITY DUE TO EXCESS CA 08/15/2017 NOHEMY TYLER MD, Ot E78.00 PURE HYPERCHOLESTEROLEMIA, UNSPECIFIED 08/15/2017 NOHEMY TYLER MD, Ot F32.9 MAJOR DEPRESSIVE DISORDER, SINGLE EPISOD 08/15/2017 NOHEMY TYLER MD, Ot G47.33 OBSTRUCTIVE SLEEP APNEA (ADULT) (PEDIATR 08/15/2017 NOHEMY TYLER MD, Ot I10 ESSENTIAL (PRIMARY) HYPERTENSION 08/15/2017 NOHEMY TYLER MD Ot I25.10 ATHSCL HEART DISEASE OF [place] CORONARY 08/15/2017 NOHEMY TYLER MD, Ot J44.9 CHRONIC OBSTRUCTIVE PULMONARY DISEASE, U 08/15/2017 NOHEMY TYLER MD, Ot N20.0 CALCULUS OF KIDNEY 08/15/2017 NOHEMY TYLER MD, Ot Z68.42 BODY MASS INDEX (BMI) 45.0-49.9, ADULT 08/15/2017 NOHEMY TYLER MD, Ot Z79.82 HAMMERER HELPER (CURRENT) USE OF ASPIRIN 08/15/2017 NOHEMY TYLER MD, Ot Z79.899 OTHER JAIL (CURRENT) DRUG THERAPY 08/15/2017 NOHEMY TYLER MD Ot Z95.0 PRESENCE OF CARDIAC PACEMAKER 08/23/2017 NOHEMY TYLER MD, Ot N20.1 CALCULUS OF URETER 08/29/2017 JESSENIA DO, ERNESTINA K Ot E11.9 TYPE 2 DIABETES MELLITUS WITHOUT COMPLIC 08/29/2017 JESSENIA DO, ERNESTINA K Ot E78.00 PURE HYPERCHOLESTEROLEMIA, UNSPECIFIED 08/29/2017 JESSENIA DO, ERNESTINA K Ot F32.9 MAJOR DEPRESSIVE DISORDER, SINGLE EPISOD 08/29/2017 JESSENIA DO, ERNESTINA K Ot G47.30 SLEEP APNEA, UNSPECIFIED 08/29/2017 JESSENIA DO, ERNESTINA K Ot I10 ESSENTIAL (PRIMARY) HYPERTENSION 08/29/2017 JESSENIA DO, ERNESTINA K Ot I25.10 ATHSCL HEART DISEASE OF [place] CORONARY 08/29/2017 ERNESTINA RUELAS DO Ot I83.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 08/29/2017 ERNESTINA RUELAS DO, Ot K21.9 GASTRO-ESOPHAGEAL REFLUX DISEASE WITHOUT 08/29/2017 ERNESTINA RUELAS DO, Ot Z86.73 PRSNL HX OF TIA (TIA), AND CEREB INFRC W 08/29/2017 ERNESTINA RUELAS DO, Ot Z87.442 PERSONAL HISTORY OF URINARY CALCULI 08/29/2017 ERNESTINA RUELAS DO, Ot Z88.0 ALLERGY STATUS TO PENICILLIN 08/29/2017 ERNESTINA RUELAS DO, Ot Z95.0 PRESENCE OF CARDIAC PACEMAKER 08/29/2017 ERNESTINA RUELAS DO Ot Z95.5 PRESENCE OF CORONARY ANGIOPLASTY IMPLANT 08/29/2017 NOHEMY TYLER MD Ot N20.0 CALCULUS OF KIDNEY 08/31/2017 NOHEMY TYLER MD, Ot K76.9 LIVER DISEASE, UNSPECIFIED 09/03/2017 NOHEMY TYLER MD, Ot N20.0 CALCULUS OF KIDNEY Procedures Code Description Performed By Performed On 00.40 PROCEDURE ON SINGLE VESSEL 03/01/2011 00.45 INSERTION OF ONE VASCULAR STENT 03/01/2011 00.66 PERCUTANEOUS TRANSLUMINAL CORONARY ANGIO 03/01/2011 36.07 INSRT OF DRUG-ELUTING CORON ARTERY STENT 03/01/2011 37.22 LEFT HEART CARDIAC CATH 03/01/2011 88.53 LT HEART ANGIOCARDIOGRAM 03/01/2011 88.56 CORONAR ARTERIOGR-2 CATH 03/01/2011 89464 A1C (IN-HOUSE) 04/19/2012 53378 MICRO ALBUMIN-IN HOUSE 04/19/2012 11933 US ABDOMINAL ULTRASOUND, COMPLETE 05/10/2012 71717 OXIMETRY 04/11/2013 78160 OXIMETRY 04/27/2013 71296 XRAY CHEST 2 VIEW 05/14/2013 08532 ROUTINE VENIPUNCTURE 06/23/2013 [id number] GFR CALC (RESULT ONLY) 06/23/2013 43579 CMP 06/23/2013 94284 LIPID PANEL 06/23/2013 Physical Physical Therapy, [facility] 09/23/2013 16568 A1C (IN-HOUSE) 10/03/2013 Omid Pool 12/21/2013 44225 ROUTINE VENIPUNCTURE 02/02/2014 10995 LIPID PANEL 02/02/2014 59133 LIVER PANEL (LFT) 02/02/2014 12048 ROUTINE VENIPUNCTURE 05/18/2014 62468 ESTRADIOL 05/18/2014 26220 FSH 05/18/2014 67642 05/18/2014 Results Test Result Range CD3+CD4+ (T4 [...] creatinine measurement (mass/time) 1777 % 600-1800 Clinical marketing sales manager review of results See Below [facility] Comprehensive metabolic panel - 04/18/16 [...] or plasma urea nitrogen/creatinine mass ratio 28 NRG Serum or plasma creatinine measurement with calculation of estimated glomerular filtration rate > NRG Serum or plasma glucose measurement (mass/volume) 116 [...] 7-25 CREATININE 0.67 mg/dL 0.50-1.05 eGFR NON-AFR. [place] 98 mL/min/1.73m2 > OR=60 eGFR 114 mL/min/1.73m2 [...] 9.0 fL 7.5-12.5 ABSOLUTE NEUTROPHILS 3364 cells/uL 7293-2763 ABSOLUTE LYMPHOCYTES 1512 cells/uL 850-3900 ABSOLUTE MONOCYTES [...] urinalysis with reflex to culture NO NRG Methicillin resistant Staphylococcus aureus (MRSA) screening culture - 07:30 Methicillin resistant Staphylococcus aureus (MRSA) screening culture NEG NRG Encounters ACCT No. Visit Date/Time Discharge Status Pt. Type Provider Facility Loc./Unit Complaint [id number] 08/26/2014 08:16:00 08/26/2014 23:59:59 CLS Outpatient LASHAWN ALVAREZ APRNCHANDU Capri [id number] 06/11/2014 13:36:00 06/11/2014 23:59:59 CLS Outpatient 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 APRN [id number] 05/18/2014 15:59:00 05/18/2014 23:59:59 CLS Outpatient AIDAN BENSON APRN [id number] 02/13/2014 16:00:00 02/13/2014 23:59:59 CLS Outpatient 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 APRN [id number] 02/02/2014 07:30:00 02/02/2014 23:59:59 CLS Outpatient GINA COLIN DO [id number] 12/17/2013 08:38:00 12/17/2013 23:59:59 CLS Outpatient 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 APRN [id number] 10/03/2013 09:00:00 10/03/2013 23:59:59 CLS Outpatient KEN DALY APRN [id number] 09/19/2013 15:03:00 09/19/2013 23:59:59 CLS Outpatient 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 APRN [id number] 08/12/2013 17:15:00 08/12/2013 23:59:59 CLS Outpatient LUIZ LEGER MD [id number] 08/04/2013 11:12:00 08/04/2013 23:59:59 CLS Outpatient MALIKA FUR FARMERKEN Farooq [id number] 06/23/2013 09:12:00 06/23/2013 23:59:59 CLS Outpatient 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 APRN [id number] 05/14/2013 13:53:00 05/14/2013 23:59:59 CLS Outpatient 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 APRN [id number] 04/25/2013 14:09:00 04/25/2013 23:59:59 CLS Outpatient 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 APRN [id number] 04/11/2013 13:47:00 04/11/2013 23:59:59 CLS Outpatient 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 APRN [id number] 03/03/2013 09:57:00 03/03/2013 23:59:59 CLS Outpatient 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 APRN [id number] 02/05/2013 08:33:00 02/05/2013 23:59:59 CLS Outpatient 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 APRN [id number] 05/28/2012 14:40:00 05/28/2012 23:59:59 CLS Outpatient MALIKA FUR FARMERKEN Farooq [id number] 05/10/2012 14:28:00 05/10/2012 23:59:59 CLS Outpatient PARADA FUR FARMER NATO Rojas [id number] 04/19/2012 13:26:00 04/19/2012 23:59:59 CLS Outpatient [id number] 04/04/2012 11:44:00 04/04/2012 23:59:59 CLS Outpatient [id number] 04/04/2012 11:44:00 04/04/2012 23:59:59 CLS Outpatient [id number] 12/09/2012 08:40:00 Document Registration [id number] 08/13/2014 05:02:29 ACT Document Registration [id number] 07/10/2017 11:20:00 07/10/2017 23:59:59 CLS Outpatient MALIKA FUR FARMERKEN [facility]ooq [facility] [id number] 07/10/2017 11:20:00 Document Registration [id number] 06/25/2017 11:40:00 Document Registration [id number] 08/30/2017 14:19:00 08/30/2017 23:59:59 CLS Outpatient NOHEMY TYLER MD [facility] RAD LIVER LESIONS [id number] 08/28/2017 14:19:00 08/28/2017 23:59:59 CLS Outpatient NOHEMY TYLER MD [facility] RAD RIGHT RENAL STONE [id number] 08/27/2017 19:56:00 08/27/2017 20:41:00 DIS Outpatient ERNESTINA RUELAS DO [facility] ER L LEG LAC [id number] 08/14/2017 06:59:00 08/14/2017 12:00:00 DIS Outpatient NOHEMY TYLER MD [facility] SDC RIGHT RENAL STONE [id number] 08/09/2017 05:36:00 08/09/2017 11:14:00 DIS Outpatient NOHEMY TYLER MD [facility] PREOP RIGHT RENAL STONE [id number] 08/06/2017 12:14:00 08/06/2017 23:59:59 CLS Outpatient NOHEMY TYLER MD [facility] RAD URETERAL STONE [id number] 08/02/2017 11:15:00 08/02/2017 14:18:00 DIS Emergency TRISTAN ALCALA FUR FARMER [facility] ER POSS KIDNEY STONE [id number] 04/04/2017 06:42:00 04/04/2017 15:02:00 DIS Outpatient DRU LINDO MD [facility] CATH CAD,CP,ABN STRESS SOB [id number] 02/26/2017 10:28:00 02/26/2017 23:59:59 CLS Outpatient DRU LINDO MD [facility] LAB I25.10 I10 I49.5 [id number] 01/22/2017 07:29:00 01/22/2017 23:59:59 CLS Outpatient JEWEL OROZCO [facility] CARD I25.10 [id number] 12/29/2016 08:11:00 12/29/2016 23:59:59 CLS Outpatient JEWEL OROZCO [facility] CARD I25.10 [id number] 05/01/2016 00:09:00 05/01/2016 23:59:59 CLS Preadmit NOHEMY TYLER MD [facility] LAB RENAL STONES [id number] 02/01/2016 08:37:00 04/30/2016 00:01:00 DIS Outpatient NOHEMY TYLER MD [facility] LAB RENAL STONES [id number] 04/18/2016 11:20:00 04/18/2016 23:59:59 CLS Outpatient 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 [facility] LAB BRADYCARDIA,DIZZINESS ,HYERTENSION [id number] 01/31/2016 17:30:00 01/31/2016 23:59:59 CLS Outpatient DRU LINDO MD [facility] LAB HYPERLIPIDEMIA [id number] 01/17/2016 17:56:00 01/17/2016 23:59:59 CLS Outpatient YANA SCHMITZ APRN [facility] RAD RIGHT FLANK PAIN, HISTORY OF RENAL CALCULI [id number] 11/22/2015 03:52:00 11/22/2015 05:20:00 DIS Emergency ERNESTINA RUELAS DO [facility] ER R ELBOW PAIN [id number] 07/12/2015 00:08:00 07/12/2015 23:59:59 CLS Preadmit NOHEMY TYLER MD [facility] LAB STONES [id number] 04/14/2015 08:05:00 07/11/2015 00:01:00 DIS Outpatient NOHEMY TYLER MD [facility] LAB STONES [id number] 05/27/2015 05:34:00 05/27/2015 07:35:00 DIS Emergency BENJI BROWN MD [facility] ER FALL,HEAD TRAUMA [id number] 05/16/2015 06:27:00 05/16/2015 08:46:00 DIS Emergency ASHOK MARI, GABRIELA S [facility] ER POSS KIDNEY STONES [id number] 03/19/2015 19:50:00 03/19/2015 22:39:00 DIS Emergency PREM MARI, MARI Mcclendon [facility] ER POSS KIDNEY STONES [id number] 03/15/2015 07:02:00 03/15/2015 23:59:59 CLS Outpatient DRU LINDO MD [facility] CARD CAD,HTN,SSS [id number] 03/09/2015 20:35:00 03/10/2015 16:40:00 DIS Outpatient DUGLAS MARI, VELIA Farooq [facility] RIGHT URETERAL STONE INTRACTABLE N/V [id number] 03/08/2015 12:17:00 03/08/2015 23:59:59 CLS Outpatient DRU LINDO MD [facility] CARD CAD,HTN,SSS,SYNCOPE,HLP [id number] 08/12/2014 15:55:00 08/12/2014 23:59:59 CLS Outpatient ANTONIO MORALES [facility] OCC FELL FROM CHAIR [id number] 06/22/2014 09:44:00 06/22/2014 23:59:59 CLS Outpatient AIDAN BENSON APRN [facility] RAD SCREENING [id number] 06/10/2014 10:36:00 06/10/2014 13:02:00 DIS Emergency BENJI BROWN MD [facility] ER PAIN DOWN LEFT LEG [id number] 11/06/2013 08:45:00 11/11/2013 15:19:00 DIS Outpatient 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 [facility] REHAB LEFT ANKLE WEAKNESS [id number] 07/08/2013 15:15:00 07/11/2013 16:37:00 DIS Outpatient MARIAELENA MAGUIRE [facility] REHAB L KNEE SYNOVECTOMY GRADE 3 CM C [id number] 07/02/2013 17:10:00 07/03/2013 10:37:00 DIS Outpatient LUIZ LEGER MD [facility] CATH CHEST PAIN [id number] 05/26/2013 07:11:00 05/26/2013 23:59:59 CLS Outpatient JEWEL OROZCO [facility] RAD CAD,COPD,HTN [id number] 05/19/2013 07:45:00 05/19/2013 23:59:59 CLS Outpatient JEWEL OROZCO [facility] CARD CAD,COPD, HTN [id number] 03/10/2013 15:30:00 03/19/2013 13:24:00 DIS Outpatient MARIAELENA MAGUIRE [facility] REHAB L KNEE PAIN [id number] 09/03/2012 06:50:00 09/03/2012 23:59:59 CLS Outpatient SARAHI RUIZ [facility] LAB HTN,HLP [id number] 07/21/2014 12:53:00 Document Registration [id number] 05/13/2012 06:42:00 Document Registration [id number] 11/13/2011 07:38:00 Document Registration [id number] 07/12/2011 11:06:00 Document Registration [id number] 06/29/2011 07:59:00 Document Registration [id number] 06/28/2011 11:02:00 Document Registration [id number] 06/26/2011 11:20:00 Document Registration [id number] 06/21/2011 22:00:00 Document Registration [id number] 06/05/2011 07:51:00 Document Registration [id number] 03/01/2011 11:58:00 Document Registration [id number] 02/22/2011 06:51:00 Document Registration [id number] 08/22/2010 09:40:00 Document Registration [id number] 03/04/2010 17:08:00 Document Registration [id number] 02/03/2010 20:52:00 Document Registration [id number] 01/26/2010 09:50:00 Document Registration [id number] 01/25/2010 08:19:00 Document Registration
[2017-09-06 17:00] VITALS: BP 147/102
== END 2017-09-06 16:58 | disposition home or self-care (01) ==
LOC: EDUNIT# 16:28 → ER 16:29
DX: S81.811D Laceration without foreign body, right lower leg, subsequent encounter (principal); X58.XXXD Exposure to other specified factors, subsequent encounter

== ENCOUNTER → 2017-09-17 | Outpatient (CLI) | payer BC ==
--- NOTE | 2017-09-17 14:14 | Diagnostic Imaging Report ---
INDICATION: Abnormal prior CT from 01/17/2016 describing a lobulated uterus. The study is performed for further evaluation. TECHNIQUE: Multiple real-time grayscale images were obtained of the pelvis in various projections endovaginally. Transabdominal imaging was also performed. COMPARISON: Comparison is made to prior study of 01/17/2016. FINDINGS: The uterus measures 6.0 x 5.4 x 4.1 cm. There does appear to be a fibroid measuring approximately 2.3 x 2.4 cm in size. Endometrium is 4 mm in thickness. Ovaries are not visualized. No adnexal mass or free fluid is seen. IMPRESSION: Uterine fibroid. No other significant abnormality is identified. Dictated by: Dictated on workstation # [id number]
== END ==
LOC: RAD 12:21
PROVIDERS: ATTEND Nurse Practitioner Community Health
DX: D25.9 Leiomyoma of uterus, unspecified (principal); N85.8 Other specified noninflammatory disorders of uterus
CPT/HCPCS: 76830; 76856

== ENCOUNTER → 2017-10-09 | Outpatient (CLI) | payer BC ==
--- NOTE | 2017-10-09 10:39 | Diagnostic Imaging Report ---
PROCEDURE: US Hepatic (Liver). TECHNIQUE: Multiple real-time grayscale images were obtained over the right upper quadrant in various projections. INDICATION: Liver mass seen on CT. Comparison made with prior CT from 08/30/2017. FINDINGS: Liver measures up to 21 cm. The previously described low-density mass on CT is not appreciated by ultrasound. This likely reflects small area of focal fatty infiltration particularly in light of the location. There is no obvious biliary ductal dilatation although the common bile duct is not visualized due to bowel gas. There is no cholelithiasis. Gallbladder wall is upper limits of normal at 3 mm. There is no pericholecystic fluid. Pancreas is largely obscured by bowel gas. Right kidney is normal in appearance. There is no ascites. IMPRESSION: The previously described mass in the liver is not seen by ultrasound. This likely reflects an area of focal fatty infiltration. Recommend clinical correlation and followup imaging as clinically warranted. Otherwise unremarkable right upper quadrant ultrasound apart from limitations due to bowel gas and body habitus. Dictated by: Dictated on workstation # [id number]
== END ==
LOC: RAD 06:38
PROVIDERS: ATTEND Nurse Practitioner Community Health
DX: R16.0 Hepatomegaly, not elsewhere classified (principal)
CPT/HCPCS: 76705